=== PATIENT | male | born 1935 | race Caucasian/White ===

== ENCOUNTER 2016-10-18 08:53 | Emergency (ER) | payer OTHER ==
[~2016-10-18] VITALS: Ht 177.8 cm; Wt 114.0 kg
[~2016-10-18 08:53] MED LIST: ACET1TAB84 PO; LISI-461 PO; MOME50SP5; SIMV20TA2 PO
[2016-10-18 09:01] VITALS: TEMP 36.7; Ht 177.8 cm; Wt 114.0 kg
[2016-10-18] MEDS ORDERED: LOSA50TA6 PO (10:10)
--- NOTE | 2016-10-18 10:12 | DIAGNOSTIC IMAGING REPORT ---
RIGHT KNEE 3 VIEWS CLINICAL HISTORY: Right knee pain following fall. COMPARISON: None FINDINGS: Alignment of the right knee is anatomic. There is a small right knee joint effusion. This extensive spurring of the patella and tibial tubercle. There is osteophytosis within the right knee. There is minimal joint space narrowing within the medial and patellofemoral compartments. IMPRESSION: 1. No acute fracture. 2. Small right knee joint effusion. 3. Mild arthritis of the right knee with extensive spurring of the patella and tibial tubercle. Electronically signed by: Floyd Orantes M.D. 10/18/2016 10:11 AM Dictated Date/Time: 10/18/2016 10:09 AM
--- NOTE | 2016-10-18 10:12 | DIAGNOSTIC IMAGING REPORT ---
RIGHT HIP 2 VIEWS HISTORY: Fall with right hip pain. COMPARISON: None. FINDINGS: There is no fracture or dislocation. Soft tissues are unremarkable. Mild to moderate right hip osteoarthritis. IMPRESSION: No fracture or dislocation within the right hip. Electronically signed by: Steve Cook M.D. 10/18/2016 10:11 AM Dictated Date/Time: 10/18/2016 10:10 AM
[2016-10-18] MEDS ORDERED: OXYC1TAB3 PO (10:39)
[2016-10-18 10:49] VITALS: BP 182/96; PULSE 64; O2SAT 94
--- NOTE | 2016-10-18 17:17 | EMERGENCY ROOM VISIT NOTE ---
History Report prepared by Ashwini: David Marte Under the Supervision of: Dr. Roby Metz D.O. First contact with patient: 09:19 Chief Complaint: LEG PAIN,LEG INJURY Stated Complaint: RIGHT LEG TWISTED, TROUBLE WALKING History of Present Illness The patient is a 81 year old male who presents to the Emergency Room with complaints of persistent right leg pain that started yesterday after stepping in a hole. The patient says that his knee rolled in and he blew his knee out. He notes that his leg twisted. He says his knee feels okay but he has pain on the back of his leg behind the knee. The patient denies any tingling, numbness, or ankle pain. He says it hurts to walk. He states that a few weeks ago he was pruning an apple tree and had some right leg pain after that, but he thinks he just overdid himself. The pain from pruning the tree has persisted, and the pain is all over the right leg, including the hip. Source of History: patient Onset: Yesterday Position: leg (right) Timing: other (persistent) Modifying Factors (Worsening): movement Associated Symptoms: No numbness Note: Associated symptoms: Pain behind right knee, generalized right leg pain into right hip. Denies tingling or ankle pain. Review of Systems See HPI for pertinent positives & negatives. A total of 10 systems reviewed and were otherwise negative. Past Medical & Surgical Medical Problems: (1) No pertinent past medical history Family History No pertinent family history Social History Smoking Status: Never Smoker Marital Status: Housing Status: lives with family Occupation Status: retired Current/Historical Medications Scheduled Acetaminophen (Tylenol Arthritis Ext Rel), 1,300 MG PO Q8HR PRN Losartan Potassium (Cozaar), 50 MG PO DAILY Simvastatin (Zocor), 20 MG PO QPM Scheduled PRN Oxycodone Immediate Rel Tab (Roxicodone Ir), 5 MG PO Q6H PRN for Pain Allergies Coded Allergies: Australian Cheese (Verified Allergy, Unknown, ALLERGY TO "CHEESE STEAK SANDWICHES", 08/14/08) No Known Allergies (Verified Allergy, Unknown, ., 08/14/08) Physical Exam Vital Signs Date Time Temp Pulse Resp B/P Pulse Ox O2 Delivery O2 Flow Rate FiO2 10/18/16 10:49 64 182/96 94 10/18/16 09:01 36.7 67 18 158/84 93 Room Air Physical Exam GENERAL: sitting up in bed, alert, well appearing, well nourished, no distress, non-toxic EYE EXAM: normal conjunctiva OROPHARYNX: mucous membranes are moist LUNGS: Clear to auscultation. Normal chest wall mechanics HEART: no murmurs, S1 normal and S2 normal ABDOMEN: abdomen soft, non-tender, normo-active bowel sounds, no masses, no rebound or guarding. SKIN: no rashes and no bruising UPPER EXTREMITIES: upper extremities are grossly normal. LOWER EXTREMITIES: No pitting edema. Full active and passive range of motion of right hip and right ankle without tenderness. Pain with flexion of knee greater than 30 degrees. Minimal pain of palpation of medial tibia, DP 2/4, gross sensations intact. PELVIS: stable compression anteriorly and posteriorly NEURO EXAM: Normal sensorium. Medical Decision & Procedures ER Provider Diagnostic Interpretation: Xray results per the radiologist and my interpretation. RIGHT KNEE 3 VIEWS CLINICAL HISTORY: Right knee pain following fall. COMPARISON: None FINDINGS: Alignment of the right knee is anatomic. There is a small right knee joint effusion. This extensive spurring of the patella and tibial tubercle. There is osteophytosis within the right knee. There is minimal joint space narrowing within the medial and patellofemoral compartments. IMPRESSION: 1. No acute fracture. 2. Small right knee joint effusion. 3. Mild arthritis of the right knee with extensive spurring of the patella and tibial tubercle. Electronically signed by: Floyd Orantes M.D. 10/18/2016 10:11 AM Dictated Date/Time: 10/18/2016 10:09 AM RIGHT HIP 2 VIEWS HISTORY: Fall with right hip pain. COMPARISON: None. FINDINGS: There is no fracture or dislocation. Soft tissues are unremarkable. Mild to moderate right hip osteoarthritis. IMPRESSION: No fracture or dislocation within the right hip. Electronically signed by: Steve Cook M.D. 10/18/2016 10:11 AM Dictated Date/Time: 10/18/2016 10:10 AM ED Course ED COURSE: Vital signs were reviewed and showed hypertensive vitals. The patients medical record was reviewed The above diagnostic studies were performed and reviewed. ED treatments and interventions as stated above. 0921: The patient was evaluated in room A9B. A complete history and physical examination was performed. 1035: Upon reevaluation, the patient is resting comfortably.I discussed my findings with the patient and he understands and agrees with the treatment plan. Based on the patients age, coexisting illnesses, exam and lab findings the decision to treat as an outpatient was made. The patient remained stable while under my care. The patient appeared well at the time of discharge. Medical Decision Differential diagnosis: Etiologies such as fracture, dislocation, neurovascular compromise, compartment syndrome, soft tissue injury, as well as others were entertained. Patient is a 81-year-old male who presents the ER for right knee and hip pain. His pain started several weeks ago when he was trimming the hedges and his knee pain started yesterday when he stepped in a ditch and twisted his knee. X-ray show no acute fractures. There is no sign of infection. Patient was discharged with OxyIR and her walker. He was instructed to follow up with his orthopedic doctor within the next 2-3 days. Discussed with Pt concerning signs and symptoms to watch out for. Pt was instructed to follow up with their PCP and discussed with the patient their option to return to the ED at anytime for persistent or worsening symptoms. The appropriate anticipatory guidance and out- patient management, including indications for return to the emergency department , were explained at length to the patient and understood. Impression Primary Impression: Knee sprain Additional Impression: Hip pain Scribe Attestation The scribe's documentation has been prepared under my direction and personally reviewed by me in its entirety. I confirm that the note above accurately reflects all work, treatment, procedures, and medical decision making performed by me. Departure Information Dispostion Home / Self-Care Prescriptions Oxycodone Immediate Rel Tab (ROXICODONE IR) 5 Mg Tab 5 MG PO Q6H Y for Pain, #10 TAB Prov: Roby Metz, DO 10/18/16 Referrals Herb Wilson M.D. (PCP) Forms HOME CARE DOCUMENTATION FORM, IMPORTANT VISIT INFORMATION Patient Instructions ED Knee Pain David, [facility] Additional Instructions Please follow up with your primary care doctor with in the next 24 hours. Any worsening of your symptoms, please return to the ED immediately. This includes numbness or weakness, worsening pain, unable to walk, redness of the joints, fevers greater than 100.4 or any other concerning signs or symptoms from your standpoint. Please take Tylenol as need for pain. Please follow up with your orthopedic doctor previous. You were given medications during this visit that will inhibit your ability to drive, operate machinery and work. Please do NOT drive, operate machinery or work for the next 12hrs. You were also given a prescription for a narcotic/oxy IR. While taking this medication you should also not drive, operate machinery and or work. Problem Qualifiers Primary Impression: Knee sprain Encounter type: initial encounter Involved ligament of knee: unspecified ligament Laterality: right Qualified Codes: S83.91XA - Sprain of unspecified site of right knee, initial encounter Additional Impression: Hip pain Laterality: right Qualified Codes: M25.551 - Pain in right hip
== END 2016-10-18 10:50 | disposition home or self-care (01) ==
LOC: C.EDB 08:54 → C.EDA 10:50
DX: S83.91XA Sprain of unspecified site of right knee, initial encounter (principal); M25.551 Pain in right hip; X50.0XXA Overexertion from strenuous movement or load, initial encounter; W18.42XA Slipping, tripping and stumbling without falling due to stepping into hole or opening, initial encounter; Z79.899 Other long term (current) drug therapy

== ENCOUNTER → 2016-12-14 | Outpatient (CLI) | payer OTHER ==
[~2016-12-14] MED LIST changes: -LISI-461 PO; +LOSA50TA6 PO; -MOME50SP5; +OXYC1TAB3 PO
[2016-12-14 12:21] LABS: HEMATOCRIT 45.5 % (42-52); MEAN CELL VOLUME 91.2 fL (80-100); MEAN CORPUSCULAR HEMOGLOBIN 30.5 pg (25-34); MEAN CORPUSCULAR HGB CONC 33.4 g/dl (32-36); MEAN PLATELET VOLUME 10.2 fL (7.4-10.4); PLATELET COUNT 217 K/uL (130-400); RED BLOOD COUNT 4.99 M/uL (4.7-6.1); WHITE BLOOD COUNT 8.73 K/uL (4.8-10.8)
[2016-12-14 12:39] LABS: BLOOD UREA NITROGEN 20 mg/dl (7-18); BUN/CREATININE RATIO 16.8 (10-20); CARBON DIOXIDE 24 mmol/L (21-32); CHLORIDE 110 mmol/L (98-107); CHOLESTEROL 134 mg/dl (0-200); ESTIMATED AVERAGE GLUCOSE 194 mg/dl; GLUCOSE 180 mg/dl (70-99); HA1C FLAG Normal (Normal); POTASSIUM 4.3 mmol/L (3.5-5.1); SODIUM 143 mmol/L (136-145); TRIGLYCERIDES 222 mg/dl (0-150); VERY LOW DENSITY LIPOPROT CALC 44 mg/dl
[2016-12-14 12:40] LABS: CALCIUM 8.8 mg/dl (8.5-10.1)
[2016-12-14 12:45] LABS: ALKALINE PHOSPHATASE 63 U/L (45-117); ALT/SGPT 38 U/L (12-78); AST/SGOT 20 U/L (15-37); CHOLESTEROL/HDL RATIO 4.1; HDL CHOLESTEROL 33 mg/dl; LDL CHOLESTEROL CALCULATED 57 mg/dl
[2016-12-14 13:13] LABS: RATIO 61.4 mcg/mg (0-30.0)
== END | disposition home or self-care (01) ==
LOC: C.LABBFT 07:38
PROVIDERS: ATTEND Internal Medicine
DX: E11.29 Type 2 diabetes mellitus with other diabetic kidney complication (principal)

== ENCOUNTER → 2017-04-24 | Outpatient (CLI) | payer OTHER ==
[~2017-04-24] MED LIST changes: -OXYC1TAB3 PO
[2017-04-24 12:49] LABS: ESTIMATED AVERAGE GLUCOSE 148 mg/dl; HA1C FLAG Normal (Normal)
[2017-04-24 13:36] LABS: ALT/SGPT 29 U/L (12-78); BLOOD UREA NITROGEN 25 mg/dl (7-18); BUN/CREATININE RATIO 22.4 (10-20); CALCIUM 8.9 mg/dl (8.5-10.1); CARBON DIOXIDE 23 mmol/L (21-32); CHLORIDE 111 mmol/L (98-107); CHOLESTEROL 124 mg/dl (0-200); GLUCOSE 145 mg/dl (70-99); POTASSIUM 3.8 mmol/L (3.5-5.1); SODIUM 142 mmol/L (136-145); TRIGLYCERIDES 210 mg/dl (0-150); VERY LOW DENSITY LIPOPROT CALC 42 mg/dl
[2017-04-24 13:46] LABS: ALKALINE PHOSPHATASE 62 U/L (45-117); AST/SGOT 13 U/L (15-37); CHOLESTEROL/HDL RATIO 3.8; HDL CHOLESTEROL 33 mg/dl; LDL CHOLESTEROL CALCULATED 49 mg/dl
== END | disposition home or self-care (01) ==
LOC: C.LABBFT 07:42
PROVIDERS: ATTEND Internal Medicine
DX: E11.29 Type 2 diabetes mellitus with other diabetic kidney complication (principal)

== ENCOUNTER 2017-10-02 17:40 | Emergency (ER) | payer OTHER ==
[~2017-10-02] VITALS: Ht 177.8 cm; Wt 120.0 kg
[2017-10-02 17:50] VITALS: TEMP 36.5; Ht 177.8 cm; Wt 120.0 kg
--- NOTE | 2017-10-02 19:05 | DIAGNOSTIC IMAGING REPORT ---
(CHEST) THORAX WITHOUT CLINICAL HISTORY: Right-sided chest pain. Patient fell from ladder. COMPARISON STUDY: 10/22/2014 CT DOSE: 1282.70 mGy.cm TECHNIQUE: CT of the thorax was performed from the thoracic inlet to the lung bases. Images are reviewed in the axial, sagittal, and coronal planes. IV contrast was not administered for this examination. A dose lowering technique was utilized adhering to the principles of ALARA. FINDINGS: Thyroid: Imaged portions of the thyroid gland are normal in appearance. Thoracic aorta: The thoracic aorta is normal in course and caliber, noting standard 3 vessel arch anatomy. Heart: The heart is mildly enlarged. There are coronary artery calcifications. Lungs and pleural spaces: There are bilateral calcified pleural plaques. There is no pneumothorax. Evaluation the lung parenchyma is limited due to respiratory motion artifact. There are groundglass opacities with a slight mosaic distribution, finding which may indicate underlying airway disease. There is a stable 16 mm right lower lobe pulmonary nodule containing a central calcification. This is likely postinflammatory. No pleural effusions are visualized Mediastinum: There is no mediastinal lymphadenopathy. [place]: There is no evidence of pathologic hilar adenopathy given the limitations of a noncontrast study. Axilla: There is no evidence of pathologic axillary lymphadenopathy Upper abdomen: Partially visualized upper abdominal viscera is within normal limits. Skeletal structures: There are no lytic or blastic osseous lesions. IMPRESSION: 1. Study limited due to respiratory motion artifact 2. No evidence of pneumothorax. No evidence of mediastinal hematoma. 3. No rib fractures identified 4. Calcified pleural plaques 5. Persistent 16mm right lower lobe pulmonary nodule containing a central calcification. This is felt to be postinflammatory Electronically signed by: Kyaw Samayoa M.D. 10/02/2017 7:03 PM Dictated Date/Time: 10/02/2017 6:57 PM
[2017-10-02 20:30] VITALS: BP 138/76; PULSE 88; O2SAT 97
--- NOTE | 2017-10-02 21:28 | EMERGENCY ROOM VISIT NOTE ---
History Report prepared by Ashwini: Cristino Cates Under the Supervision of: Dr. Ander Lewis M.D. First contact with patient: 18:37 Chief Complaint: FALL Stated Complaint: FELL OF LADDER,ALL OF RIDE SIDE HURTS History of Present Illness The patient is an 82 year old male who presents to the Emergency Room with complaints of a sudden fall occurring around 1500. He states that the pain is "not too bad", and his pain is worse with movement and pressing, and he occasionally has a sharp pain. The patient states that he was on a ladder and turned around and fell off of the 3rd-4th step, and he fell on his back. He states that he has been having some back rib on the right pain. The patient states that he did not hit his head. He is not currently on any blood thinners. Pt denies LOC, headache, visual changes, neck pain, chest pain, breathing difficulties, nausea, vomiting, abdominal pain, extremity pain, numbness, weakness, open wounds, active bleeding, or other complaints. Source of History: patient Onset: 1500 Symptom Intensity: "Not too bad" Quality: other (fall) Timing: other (sudden) Modifying Factors (Worsening): movement, other (touching it) Associated Symptoms: + back pain Review of Systems See HPI for pertinent positives and negatives. A total of ten systems were reviewed and were otherwise negative. Past Medical & Surgical Medical Problems: (1) Diabetes (2) HTN (hypertension) (3) No pertinent past medical history Family History Cancer Gallbladder disease Social History Smoking Status: Never Smoker Marital Status: Housing Status: lives with family Occupation Status: retired Current/Historical Medications Scheduled Acetaminophen (Tylenol Arthritis Ext Rel), 1,300 MG PO Q8HR PRN Losartan Potassium (Cozaar), 50 MG PO DAILY Simvastatin (Zocor), 20 MG PO QPM Allergies Coded Allergies: Vincentian Cheese (Verified Allergy, Unknown, ALLERGY TO "CHEESE STEAK SANDWICHES", 08/14/08) No Known Allergies (Verified Allergy, Unknown, ., 08/14/08) Physical Exam Vital Signs Date Time Temp Pulse Resp B/P (MAP) Pulse Ox O2 Delivery O2 Flow Rate FiO2 10/02/17 20:30 88 20 138/76 97 Room Air 10/02/17 20:30 88 20 138/76 97 10/02/17 17:50 36.5 77 20 186/76 98 Room Air Physical Exam GENERAL: Awake, alert, well-appearing, in no distress HENT: Normocephalic, atraumatic. Oropharynx unremarkable. EYES: Normal conjunctiva. Sclera non-icteric. NECK: Supple. No nuchal rigidity. FROM. No masses. No tenderness to palpation. RESPIRATORY: Clear to auscultation. No wheezes. No rales. Normal respiratory effort. CARDIAC: Normal rate. Normal rhythm. No murmurs. No rubs. Extremities warm and well perfused. Pulses equal. No JVD. GI: Soft, non-distended. No tenderness to palpation. No rebound or guarding. No masses. RECTAL: Deferred. MUSCULOSKELETAL: Atraumatic extremities. Right posterior lateral inferior rib tenderness along the axillary line. Anterolateral right sided rib tenderness. There is no CVA tenderness to palpation. No joint edema. No midline spine tenderness to palpation or percussion. Inspection reveals no abnormalities. LOWER EXTREMITIES: Calves are equal size bilaterally and non-tender. No edema. No discoloration. NEURO: Normal sensorium. No sensory or motor deficits noted. SKIN: No rash or jaundice noted. Medical Decision & Procedures ER Provider Diagnostic Interpretation: Radiology results as stated below per my review and radiologist interpretation: (CHEST) THORAX WITHOUT CLINICAL HISTORY: Right-sided chest pain. Patient fell from ladder. COMPARISON STUDY: 10/22/2014 CT DOSE: 1282.70 mGy.cm TECHNIQUE: CT of the thorax was performed from the thoracic inlet to the lung bases. Images are reviewed in the axial, sagittal, and coronal planes. IV contrast was not administered for this examination. A dose lowering technique was utilized adhering to the principles of ALARA. FINDINGS: Thyroid: Imaged portions of the thyroid gland are normal in appearance. Thoracic aorta: The thoracic aorta is normal in course and caliber, noting standard 3 vessel arch anatomy. Heart: The heart is mildly enlarged. There are coronary artery calcifications. Lungs and pleural spaces: There are bilateral calcified pleural plaques. There is no pneumothorax. Evaluation the lung parenchyma is limited due to respiratory motion artifact. There are groundglass opacities with a slight mosaic distribution, finding which may indicate underlying airway disease. There is a stable 16 mm right lower lobe pulmonary nodule containing a central calcification. This is likely postinflammatory. No pleural effusions are visualized Mediastinum: There is no mediastinal lymphadenopathy. [place]: There is no evidence of pathologic hilar adenopathy given the limitations of a noncontrast study. Axilla: There is no evidence of pathologic axillary lymphadenopathy Upper abdomen: Partially visualized upper abdominal viscera is within normal limits. Skeletal structures: There are no lytic or blastic osseous lesions. IMPRESSION: 1. Study limited due to respiratory motion artifact 2. No evidence of pneumothorax. No evidence of mediastinal hematoma. 3. No rib fractures identified 4. Calcified pleural plaques 5. Persistent 16mm right lower lobe pulmonary nodule containing a central calcification. This is felt to be postinflammatory Electronically signed by: Kyaw Samayoa M.D. 10/02/2017 7:03 PM Dictated Date/Time: 10/02/2017 6:57 PM ED Course 1837: The patient was evaluated in room D7. A complete history and physical exam was performed. 2002: I reevaluated the patient, and he states that he feels good other than pain with movement. I offered pain medications, and he does not want want at this time. The patient is going to be discharged home. Medical Decision Prior records reviewed and summarized above. Triage Nursing notes reviewed and agree them. Additional history obtained from his . The patient's history was concerning for traumatic injury. Differential diagnosis: Etiologies such as fracture, dislocation, neurovascular compromise, compartment syndrome, soft tissue injury, hemothorax, intra-abdominal injury, pulmonary contusion, pneumothorax, as well as others were entertained. Physical examination: Consistent with an isolated right rib injury. ER treatment provided: Patient declined analgesia On reassessment the patient felt better. Diagnostics interpreted by me: Imaging studies: CT scan as above. The patient suffered a fall without injury to his head, neck midline back, abdomen or extremities. He has a normal neurologic examination and benign abdomen. He had tenderness on his right sided ribs, anteriorly and posteriorly. He was breathing normally. CT imaging was done to fully evaluate his possible injuries. No significant pathology was found. No fractures noted. Given his tenderness I suspect that he has either bruised or hairline cracked ribs that may not be showing up on imaging. He was offered analgesia but declined. He was instructed to use Tylenol and conservative management. Exercising as long as was recommended. Warning signs for worsening issue such as pneumonia were outlined. The patient was advised to minimize risky behavior such as climbing on ladders. He will need to follow-up with his primary office this week. If he worsens in any way he will be back. By the evaluation outlined above emergent etiologies such as fracture, dislocation, neurovascular compromise, compartment syndrome, infections, hemothorax, pneumothorax, intra-abdominal injury, as well as others were deemed relatively unlikely. The patient and were informed about the findings as listed above. All questions were answered and they were pleased with the treatment. Return instructions were outlined and the patient was discharged in stable condition. Prescription management: None Referral: The patient was referred to their primary care physician in 2 to 3 days for a recheck of your current condition. Medication Reconcilliation Current Medication List: was personally reviewed by me Blood Pressure Screening Patient's blood pressure: Elevated blood pressure Blood pressure disposition: Elevated BP felt to be situational Impression Primary Impression: Fall Additional Impression: Rib pain on right side Scribe Attestation The scribe's documentation has been prepared under my direction and personally reviewed by me in its entirety. I confirm that the note above accurately reflects all work, treatment, procedures, and medical decision making performed by me. Departure Information Dispostion Home / Self-Care Referrals Herb Wilson M.D. (PCP) Forms HOME CARE DOCUMENTATION FORM, IMPORTANT VISIT INFORMATION Patient Instructions [facility] Additional Instructions Tylenol: Take 1000 mg every 6 hours as needed for pain. Do not take more than 3000 mg in a 24 hour period. Ice compresses for 20 minutes at a time four times daily for 2-3 days. Alternate Warm compresses for 20 minutes at a time four times daily for 2-3 days. Every two to 3 hours take slow deep breaths to exercise your lungs. Do this for about 10 minutes each time. Bruised or cracked ribs can lead to pneumonia and exercising your lungs may help prevent this. Return to the ER for worsening chest pain, difficulty breathing, fevers, vomiting, worsening of your condition, or as needed. Follow-up with your primary care physician in 2 to 3 days for a recheck of your current condition. Problem Qualifiers
== END 2017-10-02 20:30 | disposition home or self-care (01) ==
LOC: C.EDB 17:41 → C.EDD 20:30
DX: R07.81 Pleurodynia (principal); W11.XXXA Fall on and from ladder, initial encounter; E11.9 Type 2 diabetes mellitus without complications; I10 Essential (primary) hypertension; Z80.9 Family history of malignant neoplasm, unspecified; Z79.899 Other long term (current) drug therapy; Z91.018 Allergy to other foods

== ENCOUNTER → 2017-11-01 | Outpatient (CLI) | payer OTHER ==
[2017-11-01 12:23] LABS: HEMATOCRIT 44.7 % (42-52); HEMOGLOBIN 15.6 g/dL (14.0-18.0); MEAN CELL VOLUME 90.9 fL (80-100); MEAN CORPUSCULAR HEMOGLOBIN 31.7 pg (25-34); MEAN CORPUSCULAR HGB CONC 34.9 g/dl (32-36); MEAN PLATELET VOLUME 10.6 fL (7.4-10.4); PLATELET COUNT 199 K/uL (130-400); RED CELL DISTRIBUTION WIDTH CV 13.8 % (11.5-14.5); RED CELL DISTRIBUTION WIDTH SD 46.2 fL (36.4-46.3); WHITE BLOOD COUNT 7.27 K/uL (4.8-10.8)
[2017-11-01 12:49] LABS: HEMOGLOBIN A1C 6.8 % (4.5-5.6)
[2017-11-01 12:57] LABS: ALBUMIN 3.7 gm/dl (3.4-5.0); ALT/SGPT 38 U/L (12-78); AST/SGOT 24 U/L (15-37); BLOOD UREA NITROGEN 23 mg/dl (7-18); CALCIUM 8.8 mg/dl (8.5-10.1); CARBON DIOXIDE 25 mmol/L (21-32); CREATININE 1.21 mg/dl (0.60-1.40); GLUCOSE 120 mg/dl (70-99); POTASSIUM 4.3 mmol/L (3.5-5.1); SODIUM 138 mmol/L (136-145)
[2017-11-01 13:08] LABS: ALKALINE PHOSPHATASE 67 U/L (45-117); CHOLESTEROL 111 mg/dl (0-200); LDL CHOLESTEROL CALCULATED 48 mg/dl; TOTAL PROTEIN 7.5 gm/dl (6.4-8.2)
== END | disposition home or self-care (01) ==
LOC: C.LABBFT 07:30
PROVIDERS: ATTEND Internal Medicine
DX: E11.29 Type 2 diabetes mellitus with other diabetic kidney complication (principal)

== ENCOUNTER 2018-09-08 07:07 | Inpatient (IN) ==
[2018-09-08] MEDS ORDERED: SODIUM CHLORIDE 0.9% 1000ML 500 ML IV ONE (07:21)
[2018-09-08] MEDS ORDERED: ONDANSETRON INJ 2 MG/ML 2 ML VIAL IV STA (07:21)
[2018-09-08 07:53] LABS: Basophils # (auto) 0.03 K/uL (0-0.2); Basophils % (auto) 0.2 %; Eosinophils # (auto) 0.16 K/uL (0-0.5); Hematocrit (blood only) 42.1 % (42-52); Immature Granulocytes # (auto) 0.05 K/uL (0.00-0.02); Immature Granulocytes % (auto) 0.3 %; Lymphocytes % (auto) 10.7 %; Mean Corpuscular Hgb Conc 33.3 g/dL (32-36); Mean Corpuscular Volume 91.1 fL (80-100); Mean Platelet Volume 9.8 fL (7.4-10.4); Monocytes % (auto) 8.8 %; Neutrophils # (auto) 12.49 K/uL (1.4-6.5); Platelet Count 245 K/uL (130-400); RDW Coefficient of Variation 14.7 % (11.5-14.5); RDW Standard Deviation 49.1 fL (36.4-46.3); Red Blood Count 4.62 M/uL (4.7-6.1); White Blood Count 15.83 K/uL (4.8-10.8)
[2018-09-08 08:08] LABS: Albumin Level 2.6 gm/dl (3.4-5.0); Bilirubin Direct 2.3 mg/dl (0-0.2); Calcium 8.2 mg/dl (8.5-10.1); Creatinine Clr Calc Pharmacy 59.4 ml/min; Est GFR (African American) 60.4; Est GFR (Non-African American) 52.1; Potassium 4.2 mmol/L (3.5-5.1)
[2018-09-08 08:11] LABS: Bilirubin,Total 3.3 mg/dl (0.2-1); Total Protein 6.6 gm/dl (6.4-8.2)
[2018-09-08 08:26] LABS: Appearance Urine Clear (Clear); Bacteria Urine Automated Negative (Negative); Blood Urine Negative (Negative); Glucose Urine UA Negative (Negative); Ketones Urine Trace (Negative); Leukocyte Esterase Urine Trace (Negative); Nitrite Urine Positive (Negative); Protein Urine Negative (Negative); RBC Urine Automated 0-4 /hpf (0-4); Specific Gravity Urine 1.023 (1.000-1.030); Urobilinogen Urine Negative (Negative); pH Urine 6.5 (4.5-7.5)
[2018-09-08 08:43] LABS: Bilirubin Urine 2+ (Negative); Color Urine Dark Yellow; Ictotest Urine Positive (Negative)
--- NOTE | 2018-09-08 08:51 | CT Scan Report ---
ABDOMEN AND PELVIS CT WITHOUT CONTRAST CT DOSE: 1487.59 mGy.cm HISTORY: Acute right-sided flank pain with abdominal distention. R flank pain abd distention TECHNIQUE: Multiaxial CT images of the abdomen and pelvis were performed without contrast. A dose lo wering technique was utilized adhering to the principles of ALARA. COMPARISON STUDY: Chest CT 10/02/2017 FINDINGS: Bibasilar pleural calcifications. Calcifications are also noted about the left pericardial distributi on. Pleural-based centrally calcified 0.5 cm nodule of the right lower lobe, unchanged. Multiple denise d nodules of the bilateral lung bases appear new from comparison study measuring up to 7 mm. No pneum atosis or pneumoperitoneum. Imaged inferior cardiac chambers are normal in size with coronary arteria l calcifications. Cholelithiasis with suggestion of mild gallbladder wall thickening and trace pericholecystic edema wi thout gallbladder distention or biliary ductal dilation. Trace perihepatic ascites. Mild hepatic stea tosis otherwise unremarkable appearance of the liver. The spleen, pancreas and right adrenal gland ar e unremarkable. Mild attending about the left adrenal gland. Mild nonspecific bilateral perinephric stranding. No renal calculi or obstructive uropathy. Mild wall thickening of the urinary bladder with partial distention. Mild prostamegaly. Trace free fluid about the pelvis. Trace fluid about the pancreaticoduodenal groove. No bowel obstruction. Mild circumferen tial rectal wall thickening with mild perirectal stranding. Colonic diverticulosis without acute dive rticulitis. Appendix not definitively seen. Large and small bowel is displaced toward the central and left abdomen secondary to a large fatty attenuating lesion of the right retroperitoneum, likely christopher ing from the posterior pararenal space which measures 22.7 x 23.1 x 17.3 cm, image 290 series 3. Cent rally fatty attenuating structure with peripheral calcification noted centrally within this lesion, 1 1.8 x 2.3 x 2.9 cm. Soft tissues are within normal limits. Bones appear to be grossly intact. No suspicious lytic or lisa tic bony lesions. Degenerative changes of the spine, pelvis and hips. IMPRESSION: 1. Large mass of the right retroperitoneum which appears to arise from the posterior pararenal space measures up to 22.7 cm. This mass is predominantly fatty attenuating with minimal central complexity. 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 The mass causes mass effect and displacement of the adjacent large and small bow el. 2. No bowel obstruction. 3. Mild nonspecific wall thickening of the rectum, possibly reflecting an acute proctitis with mild a djacent perirectal inflammation and trace free pelvic fluid. Correlate with clinical exam and patient history. 4. Cholelithiasis with mild gallbladder wall thickening, pericholecystic fluid and trace perihepatic ascites. Correlate with right upper quadrant ultrasound to exclude acute cholecystitis. 5. New bilateral pulmonary nodules measure up to 7 mm. Follow-up nonemergent CT of the chest recommen ded to further evaluate. 6. Hepatic steatosis. 7. Additional findings as above. Electronically signed by: Clifton Acosta M.D. 09/08/2018 8:49 AM
[2018-09-08] MEDS ORDERED: cefTRIAXone SODIUM 1,000 MG/50 ML BAG IV STA (08:59)
[2018-09-08] MEDS ORDERED: metroNIDAZOLE 500 MG/100 ML BAG IV STA (08:59)
--- NOTE | 2018-09-08 10:41 | Ultrasound Report ---
US gallbladder HISTORY: 83 years-old Male ro dara acute right upper quadrant abdominal pain COMPARISON: CT abdomen pelvis 09/08/2018 TECHNIQUE: Multiple real-time sonogram images of the abdominal right upper quadrant were obtained ass essing grayscale appearance and color flow FINDINGS: The pancreas is mostly obscured by bowel gas. Hepatic steatosis without focal hepatic mass lesion or marginal nodularity. No intrahepatic biliary ductal dilation. Edematous gallbladder wall is thickened measuring up to 7 mm. 7 mm mobile stone is noted within the region of the gallbladder neck. No sonog raphic Hernandez sign reported. No significant gallbladder distention. Trace pericholecystic edema is be tter seen on comparison CT. The common bile duct is normal, 4 mm. Imaged right kidney is unremarkable without hydronephrosis. Partially imaged fatty mass of the retrop eritoneum on the right redemonstrated. IMPRESSION: 1. Gallbladder wall thickening and cholelithiasis with trace pericholecystic edema. No associated sig nificant gallbladder distention, however these findings are suspicious for acute cholecystitis in the appropriate clinical setting. 2. No biliary ductal dilation. 3. Hepatic steatosis. 4. Large fatty mass of the retroperitoneum, better seen and described on comparison CT of same day. The above report was generated using voice recognition software. It may contain grammatical, syntax o r spelling errors. Electronically signed by: Clifton Acosta M.D. 09/08/2018 10:39 AM
--- NOTE | 2018-09-08 12:27 | History & Physical Report ---
Date of Service September 08, 2018 Assessment & Plan (1) Acute cholecystitis: diagnosed on CT as well as US, gall bladder wall thickening and cholelithiasis NPO Cipro and Flagyl IV NSS at 80cc/hr MRCP: confirms acute cholecystitis, no evidence of CBD dilation or choledocholithiasis consult general surgery, Dr. 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 incidental finding as he is presenting with acute cholecystitis general surgery will be seeing patient, anticipate that he can follow up with them as outpatient (3) Dyspnea: ongoing issue for a few weeks/months scheduled for PFT next week as outpatient, may have to be rescheduled will check echo to determine heart function has pleural scarring on CXR, this is chronic finding (4) Peripheral edema: pitting edema, going on for weeks check echo (5) HTN (hypertension): continue Losartan (6) Diabetes: hold Glimepiride diabetic diet once he can eat Novolog SS (7) Pleural scarring: chronic issues, seen again today on CXR 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 He said that he has been getting this pain intermittently for the past few weeks. He did not note any association with eating. He said that the pain would last minutes to maybe half an hour. The pain was never severe enough for him to seek medical attention. Last night he noticed that the pain was more intense and then this morning the pain was severe. He did not have a fever but did have some chills. No nausea or vomiting. He had a very small BM this morning but mostly passed gas. He says that for a few weeks he has felt more bloated, passing more gas and his BM have been smaller. In the ED he had a leukocytosis of 15k, AST, ALT , bili and alk phos all elevated. CT abdomen and pelvis showed possible cholecytitis. RUQ US showed gall bladder wall thickening, gall stone, suggested cholecystitis. The common bile duct was not dilated on US. He was given IV fluids and Rocephin and Flagyl and admission requested. The ED physician talked with general surgery, asked that medicine admit the patient. The patient admits to some increase shortness of the breath over the past few months. He has been following with his PCP. They were in the process of setting up PFT, actually to be done next week, and then he would follow up with pulmonology. He gets short of breath on exertion and has been getting winded with less activity recently. He also has some pitting edema in the legs, he says that it has been there for a few weeks, not getting better but also not getting worse. He has never had an echo, no history of heart failure. He says that every now and then he gets a little bit of chest tightness, this occurs randomly, has not seen an association with exertion. His weight has been stable. He is compliant with his home medications. 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 He was planning on discussing this with the core inspector next week. Allergies Allergy/AdvReac Type Severity Reaction Status Date / Time CATS Allergy Intermediate FACE Uncoded 09/08/18 09:16 SWELLING Home Medications Home Medications Medication Instructions Recorded Confirmed Type glimepiride 2 mg PO QAM 09/08/18 09/08/18 History levothyroxine 75 mcg PO DAILY 09/08/18 09/08/18 History losartan 100 mg PO DAILY 09/08/18 09/08/18 History simvastatin 20 mg PO PM 09/08/18 09/08/18 History Past Med/Surg History Medical History HTN (hypertension) (Chronic) Diabetes (Chronic) Acute cholecystitis Hip pain Knee sprain Surgical History History of appendectomy (Resolved) Family History Other FHx: cancer Family history of gallbladder disease Social History Current Living Situation: Spouse Other Information That Helps Us Care for You: No Feels Safe at Home: Yes Safety Concerns: Feels Safe At This Time Smoking Status: Never smoker Do You Dip or Chew Tobacco: No Hx Alcohol Use: No Hx Substance Use: No Beliefs That Will Affect Care: Bahai Bahai Beliefs: Church Preferred Language: Venezuelan Communication Ability: Effective Parts Identification Technician Required: No Review of Systems All systems reviewed & are unremarkable except as noted in HPI & below Physical Exam 2 Vital Signs (Past 24 Hours): Last Vital Signs Temp 36.8 C 09/08/18 07:07 Pulse 85 09/08/18 07:50 Resp 13 09/08/18 07:50 BP 194/82 H 09/08/18 10:41 Pulse Ox 93 09/08/18 10:41 Constitutional: WD/WN, vitals as above + obese Eyes: PERRL, conjunctivae normal, anicteric sclerae ENMT: external ear and nose normal, oropharynx normal Neck: trachea midline, no thyromegaly Respiratory: normal respiratory effort, lungs clear to auscultation Cardiovascular: Rate/Rhythm: regular rate and regular rhythm Heart Sounds: normal S1 and normal S2; no murmur Vessels: no JVD Extremities: + pedal edema (bilaterally, 1+ pitting) Gastrointestinal (Abdomen): Inspection/Auscultation: + abdomen distended and + hypoactive bowel sounds Percussion/Palpation: + abdomen tender (RUQ), abdomen soft and + tympanic to percussion; no guarding Musculoskeletal: no cyanosis or clubbing, extremities motor strength 5/5 Skin: no rashes, warm and dry Neurologic: patellar DTR's 2+ bilat, sensation intact and PERRL, EOMI, accommodation nl, no face palsy, no dysarthria Psychiatric: A+Ox3, euthymic affect Lymphatic: no cervical or axillary lymphadenopathy Results & Data Laboratory Results Laboratory Results - last 24 hr 09/08/18 09/08/18 09/08/18 07:45 07:45 07:45 WBC 15.83 H RBC 4.62 L Hgb 14.0 Hct 42.1 MCV 91.1 MCH 30.3 MCHC 33.3 RDW Std Deviation 49.1 H RDW Coeff of Alem 14.7 H Plt Count 245 MPV 9.8 Immature Gran % (Auto) 0.3 Neut % (Auto) 79.0 Lymph % (Auto) 10.7 Kimball % (Auto) 8.8 Eos % (Auto) 1.0 Baso % (Auto) 0.2 Immature Gran # (Auto) 0.05 H Neut # (Auto) 12.49 H Lymph # (Auto) 1.70 Kimball # (Auto) 1.40 H Eos # (Auto) 0.16 Baso # (Auto) 0.03 PT 12.4 H INR 1.2 H APTT 29.6 PTT Ratio 1.1 Sodium 139 Potassium 4.2 Chloride 104 Carbon Dioxide 26 Anion Gap 9.0 BUN 19 H Creatinine 1.28 Est Cr Clr Drug Dosing 59.4 Est GFR ( Amer) 60.4 Est GFR (Non-Af Amer) 52.1 BUN/Creatinine Ratio 15.0 Glucose 156 H Calcium 8.2 L Total Bilirubin 3.3 H Direct Bilirubin 2.3 H AST 334 H ALT 349 H Alkaline Phosphatase 460 H Total Protein 6.6 Albumin 2.6 L Lipase 225 Urine Color Urine Appearance Urine pH Ur Specific [place] Urine Protein Urine Glucose (UA) Urine Ketones Urine Blood Urine Nitrite Urine Bilirubin Urine Urobilinogen Ur Leukocyte Esterase Urine WBC (Auto) Urine RBC (Auto) U Hyaline Cast (Auto) U Epithel Cells (Auto) Urine Bacteria (Auto) 09/08/18 08:00 WBC RBC Hgb Hct MCV MCH MCHC RDW Std Deviation RDW Coeff of Alem Plt Count MPV Immature Gran % (Auto) Neut % (Auto) Lymph % (Auto) Kimball % (Auto) Eos % (Auto) Baso % (Auto) Immature Gran # (Auto) Neut # (Auto) Lymph # (Auto) Kimball # (Auto) Eos # (Auto) Baso # (Auto) PT INR APTT PTT Ratio Sodium Potassium Chloride Carbon Dioxide Anion Gap BUN Creatinine Est Cr Clr Drug Dosing Est GFR ( Amer) Est GFR (Non-Af Amer) BUN/Creatinine Ratio Glucose Calcium Total Bilirubin Direct Bilirubin AST ALT Alkaline Phosphatase Total Protein Albumin Lipase Urine Color Dark Yellow Urine Appearance Clear Urine pH 6.5 Ur Specific [place] 1.023 Urine Protein Negative Urine Glucose (UA) Negative Urine Ketones Trace H Urine Blood Negative Urine Nitrite Positive H Urine Bilirubin 2+ H Urine Urobilinogen Negative Ur Leukocyte Esterase Trace H Urine WBC (Auto) 1-5 Urine RBC (Auto) 0-4 U Hyaline Cast (Auto) 1-5 U Epithel Cells (Auto) 5-10 H Urine Bacteria (Auto) Negative Diagnostic Findings CT ABDOMEN/PELVIS IMPRESSION: 1. Large mass of the right retroperitoneum which appears to arise from the posterior pararenal space measures up to 22.7 cm. This mass is predominantly fatty attenuating with minimal central complexity. 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 The mass causes mass effect and displacement of the adjacent large and small bowel. 2. No bowel obstruction. 3. Mild nonspecific wall thickening of the rectum, possibly reflecting an acute proctitis with mild adjacent perirectal inflammation and trace free pelvic fluid. Correlate with clinical exam and patient history. 4. Cholelithiasis with mild gallbladder wall thickening, pericholecystic fluid and trace perihepatic ascites. Correlate with right upper quadrant ultrasound to exclude acute cholecystitis. 5. New bilateral pulmonary nodules measure up to 7 mm. Follow-up nonemergent CT of the chest recommended to further evaluate. 6. Hepatic steatosis. RUQ ULTRASOUND IMPRESSION: 1. Gallbladder wall thickening and cholelithiasis with trace pericholecystic edema. No associated significant gallbladder distention, however these findings are suspicious for acute cholecystitis in the appropriate clinical setting. 2. No biliary ductal dilation. 3. Hepatic steatosis. 4. Large fatty mass of the retroperitoneum, better seen and described on comparison CT of same day. CHEST X-RAY IMPRESSION: 1. Cardiomegaly without overt pulmonary edema. 2. Bibasilar opacities suggest atelectasis/scarring. 3. Bilateral pleural calcifications and pulmonary nodules redemonstrated. MRCP IMPRESSION: 1. Limited exam as above. 2. Cholelithiasis with gallbladder wall thickening and pericholecystic fluid redemonstrated suspicious for acute cholecystitis. Trace perihepatic ascites with trace fluid along the pancreaticoduodenal groove is likely reactive. 3. Normal appearance of the common bile duct without evidence of choledocholithiasis. Code Status & VTE Plan Code Status FULL CODE VTE Prophylaxis Plan VTE Prophylaxis will be ordered: Yes _ (1) HTN (hypertension) Hypertension type: essential hypertension Qualified Code(s): I10 - Essential (primary) hypertension (2) Diabetes Diabetes mellitus type: type 2 Diabetes mellitus long-term insulin use: without boatwright use Diabetes mellitus complication status: without complication Qualified Code(s): E11.9 - Type 2 diabetes mellitus without complications (3) Dyspnea Dyspnea type: dyspnea on exertion Qualified Code(s): R06.09 - Other forms of dyspnea
[2018-09-08] MEDS ORDERED: POLYETHYLENE (MIRALAX) 17 GM PACK PO PRN (12:48)
[2018-09-08] MEDS ORDERED: ACETAMINOPHEN 325 MG TAB PO PRN (12:48)
[2018-09-08] MEDS ORDERED: MoRPHine SULFATE 4 MG/ML 1 ML CARP\\VIAL IV PRN (12:48)
[2018-09-08] MEDS ORDERED: GLUCOSE 40% GEL 15 GM TUBE PO PRN (12:57)
[2018-09-08] MEDS ORDERED: DEXTROSE 50% 50 ML SYRINGE IV PRN (12:57)
[2018-09-08] MEDS ORDERED: CARBOHYDRATES FOR HYPOGLYCEMIA PO PRN (12:57)
[2018-09-08] MEDS ORDERED: GLUCOSE 10 TABS/TUBE PO PRN (12:57)
[2018-09-08] MEDS ORDERED: GLUCAGON FOR INJ 1 MG VIAL IM PRN (12:57)
[2018-09-08 13:20] LABS: INR 1.2 (0.9-1.1); Partial Thromboplastin Ratio 1.1; Partial Thromboplastin Time 29.6 Seconds (21.0-31.0); Prothrombin Time 12.4 Seconds (9.0-12.0)
--- NOTE | 2018-09-08 13:49 | Emergency Department Note ---
Entered by Abdiaziz Gaston acting as a scribe for Emory Mitchell History of Present Illness General Chief complaint: Vomiting Stated complaint: VOMITING Time Seen by Provider: 09/08/18 07:12 Source: patient History of Present Illness Onset (ago): day(s) 5 Location: abdomen Pain Consistency: + constant Maximum Pain Intensity: 8 Relieved By: + none Exacerbated By: + none Associated symptoms: + denies other symptoms (fevers, pain with urination, blood with urination, blood in stool, and black or tarry stool.); no chest pain and no shortness of breath The patient is an 83 year old male who presents to the Emergency Room with complaints of constant abdominal pain beginning five days ago. The patient states he was diagnosed with pneumonia 6 weeks ago and he has been taking medication for that. He reports he followed up with his PCP, Dr. Wilson, on Monday. The patient notes since then, he has developed pain in his right flank that goes across his right abdomen to his groin. He states he has had this discomfort before and believes it is gas. The patient reports he is sick to his stomach, and he cannot vomit. He notes nothing makes his symptoms better or worse. He denies fevers, chest pain, shortness of breath, pain with urination, blood with urination, blood in stool, and black or tarry stool. The patient notes a history of diabetes and an appendectomy. Home Medications Home Medications Medication Instructions Recorded Confirmed Type glimepiride 2 mg PO QAM 09/08/18 09/08/18 History levothyroxine 75 mcg PO DAILY 09/08/18 09/08/18 History losartan 100 mg PO DAILY 09/08/18 09/08/18 History simvastatin 20 mg PO PM 09/08/18 09/08/18 History Allergies Allergy/AdvReac Type Severity Reaction Status Date / Time CATS Allergy Intermediate FACE Uncoded 09/08/18 09:16 SWELLING Past Med/Surg History Medical History HTN (hypertension) (Chronic) Diabetes (Chronic) Acute cholecystitis Hip pain Knee sprain Surgical History History of appendectomy (Resolved) Family History Other FHx: cancer Family history of gallbladder disease Social History Current Living Situation: Spouse Other Information That Helps Us Care for You: No Feels Safe at Home: Yes Safety Concerns: Feels Safe At This Time Smoking Status: Never smoker Do You Dip or Chew Tobacco: No Hx Alcohol Use: No Hx Substance Use: No Beliefs That Will Affect Care: Episcopalian Episcopalian Beliefs: Baptist Preferred Language: Luxembourgish Communication Ability: Effective Refrigerator Room Clerk Required: No Review of Systems See HPI for pertinent positives & negatives. and A total of 10 systems reviewed and were otherwise negative Physical Exam Vital Signs Vital Signs - 24 hr 09/08/18 07:07 09/08/18 07:31 09/08/18 07:32 Temperature 36.8 C Temperature Source Oral Sepsis Recent Fever Within 48 Hours No Sepsis New/Unexplained Change in Mental Status No Sepsis Action Taken by Nursing No Action Required Pulse Rate 91 H 83 Pulse Rate [Left Finger] Pulse Rate from SpO2 Sensor 84 Respiratory Rate 20 14 Respiratory Effort / Characteristics Non-Labored Respiratory Depth Normal Respiratory Pattern Blood Pressure 169/75 H 171/91 H Blood Pressure [Left Arm] Blood Pressure Mean 106 117 Blood Pressure Mean [Left Arm] Blood Pressure Position [Left Arm] Pulse Oximetry 94 94 Oxygen Delivery Method Room Air Room Air 09/08/18 07:40 09/08/18 07:44 09/08/18 07:50 Temperature Temperature Source Sepsis Recent Fever Within 48 Hours Sepsis New/Unexplained Change in Mental Status Sepsis Action Taken by Nursing Pulse Rate 83 84 85 Pulse Rate [Left Finger] Pulse Rate from SpO2 Sensor 83 84 85 Respiratory Rate 19 20 13 Respiratory Effort / Characteristics Respiratory Depth Respiratory Pattern Blood Pressure 169/77 H Blood Pressure [Left Arm] Blood Pressure Mean 107 Blood Pressure Mean [Left Arm] Blood Pressure Position [Left Arm] Pulse Oximetry 94 94 93 Oxygen Delivery Method 09/08/18 08:27 09/08/18 08:28 09/08/18 08:30 Temperature Temperature Source Sepsis Recent Fever Within 48 Hours Sepsis New/Unexplained Change in Mental Status Sepsis Action Taken by Nursing Pulse Rate Pulse Rate [Left Finger] Pulse Rate from SpO2 Sensor 85 83 84 Respiratory Rate Respiratory Effort / Characteristics Respiratory Depth Respiratory Pattern Blood Pressure 172/81 H Blood Pressure [Left Arm] Blood Pressure Mean 111 Blood Pressure Mean [Left Arm] Blood Pressure Position [Left Arm] Pulse Oximetry 93 93 93 Oxygen Delivery Method 09/08/18 08:40 09/08/18 08:50 09/08/18 09:00 Temperature Temperature Source Sepsis Recent Fever Within 48 Hours Sepsis New/Unexplained Change in Mental Status Sepsis Action Taken by Nursing Pulse Rate Pulse Rate [Left Finger] Pulse Rate from SpO2 Sensor 85 85 86 Respiratory Rate Respiratory Effort / Characteristics Respiratory Depth Respiratory Pattern Blood Pressure Blood Pressure [Left Arm] Blood Pressure Mean Blood Pressure Mean [Left Arm] Blood Pressure Position [Left Arm] Pulse Oximetry 90 91 92 Oxygen Delivery Method 09/08/18 09:10 09/08/18 09:20 09/08/18 10:41 Temperature Temperature Source Sepsis Recent Fever Within 48 Hours Sepsis New/Unexplained Change in Mental Status Sepsis Action Taken by Nursing Pulse Rate Pulse Rate [Left Finger] Pulse Rate from SpO2 Sensor 85 87 89 Respiratory Rate Respiratory Effort / Characteristics Respiratory Depth Respiratory Pattern Blood Pressure 194/82 H Blood Pressure [Left Arm] Blood Pressure Mean 119 Blood Pressure Mean [Left Arm] Blood Pressure Position [Left Arm] Pulse Oximetry 92 91 93 Oxygen Delivery Method 09/08/18 10:43 09/08/18 12:27 09/08/18 12:49 Temperature 36.8 C Temperature Source Oral Sepsis Recent Fever Within 48 Hours Sepsis New/Unexplained Change in Mental Status Sepsis Action Taken by Nursing Pulse Rate Pulse Rate [Left Finger] 94 H Pulse Rate from SpO2 Sensor 88 Respiratory Rate 18 Respiratory Effort / Characteristics Non-Labored Spontaneous Short of Breath SOB on Exertion Non-Labored Respiratory Depth Normal Normal Respiratory Pattern Regular Regular Blood Pressure Blood Pressure [Left Arm] 177/78 H Blood Pressure Mean Blood Pressure Mean [Left Arm] 111 Blood Pressure Position [Left Arm] Sitting Pulse Oximetry 94 Oxygen Delivery Method Room Air Room Air GENERAL: He is oriented to person, place, and time. He appears well-developed and well-nourished. He does not appear distressed. HENT: Exam performed. Head: Normocephalic and atraumatic. Right Ear: External ear normal. No mastoid tenderness. Left Ear: External ear normal. No mastoid tenderness. Mouth/Throat: The oropharynx is clear and moist. No trismus in the jaw. No dental abscesses or uvula swelling. No oropharyngeal exudate or tonsillar abscesses. EYES: Conjunctivae and EOM are normal. Pupils are equal, round, and reactive to light. Right eye exhibits no discharge. Left eye exhibits no discharge. No scleral icterus. NECK: Normal range of motion. Neck supple. No JVD present. No spinous process tenderness present. No carotid bruit present. No rigidity. No tracheal deviation and normal range of motion present. No Brudzinski's sign and no Kernig 's sign noted. CV: Normal rate, regular rhythm, normal heart sounds and intact distal pulses. There is no peripheral edema. Palpable radial pulses bue. PULM/CHEST: Effort normal and breath sounds normal. No respiratory distress. No stridor. He has no wheezes. He has no rales. Chest Wall: He exhibits no tenderness. ABD: The abdomen is soft. Bowel sounds are normal. He has distension. No mass is present. There is no tenderness. There is no rebound, no guarding, no Hernandez' s sign and no tenderness at McBurney's point. Rovsig negative MUSC/SKEL: Normal range of motion. There is no peripheral edema, tenderness or deformity. LYMPH: No cervical adenopathy. NEURO: He is alert and oriented to person, place, and time. He has normal strength. No cranial nerve deficit or sensory deficit. Coordination and gait normal. GCS eye subscore is 4. GCS verbal subscore is 5. GCS motor subscore is 6. cerbellar tests wnl. SKIN: Skin is warm and dry. He is not diaphoretic. PSYCH: He has a normal mood and affect. His behavior is normal. Judgment and thought content normal. Course 0714: Past medical records reviewed. The patient was evaluated in room B05, and a complete history and physical examination were performed. 0854: Vital signs stable. Repeat examination showed abdominal distention and pain in the RUQ. Labs show: leukocytosis of 15.83, bilirubin of 3.3, direct bilirubin of 2.3, AST of 334, ALT of 349, and an alk phos of 460. The patient's CT of the abdomen shows cholelithiasis and concerns for cholecystitis. The patient will be getting an ultrasound of the RUQ. Given the physcial examination , lab results, and CT results, the patient will be treated empirically for cholecystitis. He will be given Rocephin and Flagyl. The patient's CT also showed a large mass of the right retropertium concerning for lipoma versus liposarcoma. No bowel obstruction. 1102: Ultrasound of the right upper quadrant shows findings are concerning for acute cholecystitis, pericholecystic fluid and gallbladder wall thickening. I discussed the patient's case with Dr. Diaz, General Surgery. He requests the patient be admitted to the hospitalist for possible ERCP and a GI evaluation. 1110: I reviewed the patient's case with Dr. Hearn, [facility] Hospitalist. He will evaluate the patient for further management.I reevaluated the patient and discussed the findings with him. He verbalized agreement to a hospitalist evaluation and the treatment plan. The patient will be evaluated for further management and care. Administered Medications Discontinued Medications Sodium Chloride (Nss 1000ml) 500 mls @ 999 mls/hr IV .Q31M ONE Stop: 09/08/18 07:51 Last Infusion: 09/08/18 12:52 Dose: 0 mls/hr Admin: 09/08/18 08:30 Dose: 999 mls/hr Metronidazole (Flagyl) 500 mg in 100 mls @ 100 mls/hr IV NOW STA Stop: 09/08/18 09:58 Last Infusion: 09/08/18 12:52 Dose: 0 mls/hr Admin: 09/08/18 10:44 Dose: 100 mls/hr Ceftriaxone Sodium (Rocephin) 1,000 mg in 50 mls @ 100 mls/hr IV NOW STA Stop: 09/08/18 09:28 Last Infusion: 09/08/18 12:52 Dose: 0 mls/hr Admin: 09/08/18 09:37 Dose: 100 mls/hr Ondansetron HCl (Zofran) 4 mg IV NOW STA Stop: 09/08/18 07:22 Last Admin: 09/08/18 08:12 Dose: 4 mg Medical Decision Making Medical Records Attestation: I reviewed the patient's medical records. Home Medications Current Medication List: was personally reviewed by me Laboratory Data Attestation: I reviewed the patient's lab results. Result diagrams: 09/08/18 07:45 09/08/18 07:45 Lab Results 09/08/18 09/08/18 09/08/18 Range/Units 07:45 07:45 07:45 WBC 15.83 H (4.8-10.8) K/uL RBC 4.62 L (4.7-6.1) M/uL Hgb 14.0 (14.0-18.0) g/dL Hct 42.1 (42-52) % MCV 91.1 (80-100) fL MCH 30.3 (25-34) pg MCHC 33.3 (32-36) g/dL RDW Std Deviation 49.1 H (36.4-46.3) fL RDW Coeff of Alem 14.7 H (11.5-14.5) % Plt Count 245 (130-400) K/uL MPV 9.8 (7.4-10.4) fL Immature Gran % (Auto) 0.3 % Neut % (Auto) 79.0 % Lymph % (Auto) 10.7 % Bowie % (Auto) 8.8 % Eos % (Auto) 1.0 % Baso % (Auto) 0.2 % Immature Gran # (Auto) 0.05 H (0.00-0.02) K/uL Neut # (Auto) 12.49 H (1.4-6.5) K/uL Lymph # (Auto) 1.70 (1.2-3.4) K/uL Bowie # (Auto) 1.40 H (0.11-0.59) K/uL Eos # (Auto) 0.16 (0-0.5) K/uL Baso # (Auto) 0.03 (0-0.2) K/uL PT 12.4 H (9.0-12.0) Seconds INR 1.2 H (0.9-1.1) APTT 29.6 (21.0-31.0) Seconds PTT Ratio 1.1 Sodium 139 (136-145) mmol/L Potassium 4.2 (3.5-5.1) mmol/L Chloride 104 (98-107) mmol/L Carbon Dioxide 26 (21-32) mmol/L Anion Gap 9.0 (3-11) BUN 19 H (7-18) mg/dl Creatinine 1.28 (0.6-1.4) mg/dl Est Cr Clr Drug Dosing 59.4 ml/min Est GFR ( Amer) 60.4 Est GFR (Non-Af Amer) 52.1 BUN/Creatinine Ratio 15.0 (10-20) Glucose 156 H (70-99) mg/dl Calcium 8.2 L (8.5-10.1) mg/dl Total Bilirubin 3.3 H (0.2-1) mg/dl Direct Bilirubin 2.3 H (0-0.2) mg/dl AST 334 H (15-37) U/L ALT 349 H (12-78) U/L Alkaline Phosphatase 460 H (45-117) U/L Total Protein 6.6 (6.4-8.2) gm/dl Albumin 2.6 L (3.4-5.0) gm/dl Lipase 225 (73-393) U/L Urine Color Urine Appearance (Clear) Urine pH (4.5-7.5) Ur Specific Florence (1.000-1.030) Urine Protein (Negative) Urine Glucose (UA) (Negative) Urine Ketones (Negative) Urine Blood (Negative) Urine Nitrite (Negative) Urine Bilirubin (Negative) Urine Urobilinogen (Negative) Ur Leukocyte Esterase (Negative) Urine WBC (Auto) (0-5) /hpf Urine RBC (Auto) (0-4) /hpf U Hyaline Cast (Auto) (0-5) /lpf U Epithel Cells (Auto) (0-5) /lpf Urine Bacteria (Auto) (Negative) 09/08/18 Range/Units 08:00 WBC (4.8-10.8) K/uL RBC (4.7-6.1) M/uL Hgb (14.0-18.0) g/dL Hct (42-52) % MCV (80-100) fL MCH (25-34) pg MCHC (32-36) g/dL RDW Std Deviation (36.4-46.3) fL RDW Coeff of Alem (11.5-14.5) % Plt Count (130-400) K/uL MPV (7.4-10.4) fL Immature Gran % (Auto) % Neut % (Auto) % Lymph % (Auto) % Bowie % (Auto) % Eos % (Auto) % Baso % (Auto) % Immature Gran # (Auto) (0.00-0.02) K/uL Neut # (Auto) (1.4-6.5) K/uL Lymph # (Auto) (1.2-3.4) K/uL Bowie # (Auto) (0.11-0.59) K/uL Eos # (Auto) (0-0.5) K/uL Baso # (Auto) (0-0.2) K/uL PT (9.0-12.0) Seconds INR (0.9-1.1) APTT (21.0-31.0) Seconds PTT Ratio Sodium (136-145) mmol/L Potassium (3.5-5.1) mmol/L Chloride (98-107) mmol/L Carbon Dioxide (21-32) mmol/L Anion Gap (3-11) BUN (7-18) mg/dl Creatinine (0.6-1.4) mg/dl Est Cr Clr Drug Dosing ml/min Est GFR ( Amer) Est GFR (Non-Af Amer) BUN/Creatinine Ratio (10-20) Glucose (70-99) mg/dl Calcium (8.5-10.1) mg/dl Total Bilirubin (0.2-1) mg/dl Direct Bilirubin (0-0.2) mg/dl AST (15-37) U/L ALT (12-78) U/L Alkaline Phosphatase (45-117) U/L Total Protein (6.4-8.2) gm/dl Albumin (3.4-5.0) gm/dl Lipase (73-393) U/L Urine Color Dark Yellow Urine Appearance Clear (Clear) Urine pH 6.5 (4.5-7.5) Ur Specific Florence 1.023 (1.000-1.030) Urine Protein Negative (Negative) Urine Glucose (UA) Negative (Negative) Urine Ketones Trace H (Negative) Urine Blood Negative (Negative) Urine Nitrite Positive H (Negative) Urine Bilirubin 2+ H (Negative) Urine Urobilinogen Negative (Negative) Ur Leukocyte Esterase Trace H (Negative) Urine WBC (Auto) 1-5 (0-5) /hpf Urine RBC (Auto) 0-4 (0-4) /hpf U Hyaline Cast (Auto) 1-5 (0-5) /lpf U Epithel Cells (Auto) 5-10 H (0-5) /lpf Urine Bacteria (Auto) Negative (Negative) Imaging Data Radiologist's Impression: Radiology results as stated below per my review and the radiologist's interpretation: ABDOMEN AND PELVIS CT WITHOUT CONTRAST CT DOSE: 1487.59 mGy.cm HISTORY: Acute right-sided flank pain with abdominal distention. R flank pain abd distention TECHNIQUE: Multiaxial CT images of the abdomen and pelvis were performed without contrast. A dose lowering technique was utilized adhering to the principles of ALARA. COMPARISON STUDY: Chest CT 10/02/2017 FINDINGS: Bibasilar pleural calcifications. Calcifications are also noted about the left pericardial distribution. Pleural-based centrally calcified 0.5 cm nodule of the right lower lobe, unchanged. Multiple solid nodules of the bilateral lung bases appear new from comparison study measuring up to 7 mm. No pneumatosis or pneumoperitoneum. Imaged inferior cardiac chambers are normal in size with coronary arterial calcifications. Cholelithiasis with suggestion of mild gallbladder wall thickening and trace pericholecystic edema without gallbladder distention or biliary ductal dilation. Trace perihepatic ascites. Mild hepatic steatosis otherwise unremarkable appearance of the liver. The spleen, pancreas and right adrenal gland are unremarkable. Mild attending about the left adrenal gland. Mild nonspecific bilateral perinephric stranding. No renal calculi or obstructive uropathy. Mild wall thickening of the urinary bladder with partial distention. Mild prostamegaly. Trace free fluid about the pelvis. Trace fluid about the pancreaticoduodenal groove. No bowel obstruction. Mild circumferential rectal wall thickening with mild perirectal stranding. Colonic diverticulosis without acute diverticulitis. Appendix not definitively seen. Large and small bowel is displaced toward the central and left abdomen secondary to a large fatty attenuating lesion of the right retroperitoneum, likely arising from the posterior pararenal space which measures 22.7 x 23.1 x 17.3 cm, image 290 series 3. Centrally fatty attenuating structure with peripheral calcification noted centrally within this lesion, 11.8 x 2.3 x 2.9 cm. Soft tissues are within normal limits. Bones appear to be grossly intact. No suspicious lytic or blastic bony lesions. Degenerative changes of the spine, pelvis and hips. IMPRESSION: 1. Large mass of the right retroperitoneum which appears to arise from the posterior pararenal space measures up to 22.7 cm. This mass is predominantly fatty attenuating with minimal central complexity. 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 The mass causes mass effect and displacement of the adjacent large and small bowel. 2. No bowel obstruction. 3. Mild nonspecific wall thickening of the rectum, possibly reflecting an acute proctitis with mild adjacent perirectal inflammation and trace free pelvic fluid. Correlate with clinical exam and patient history. 4. Cholelithiasis with mild gallbladder wall thickening, pericholecystic fluid and trace perihepatic ascites. Correlate with right upper quadrant ultrasound to exclude acute cholecystitis. 5. New bilateral pulmonary nodules measure up to 7 mm. Follow-up nonemergent CT of the chest recommended to further evaluate. 6. Hepatic steatosis. 7. Additional findings as above. Electronically signed by: Clifton Acosta M.D. 09/08/2018 8:49 AM US gallbladder HISTORY: 83 years-old Male ro dara acute right upper quadrant abdominal pain COMPARISON: CT abdomen pelvis 09/08/2018 TECHNIQUE: Multiple real-time sonogram images of the abdominal right upper quadrant were obtained assessing grayscale appearance and color flow FINDINGS: The pancreas is mostly obscured by bowel gas. Hepatic steatosis without focal hepatic mass lesion or marginal nodularity. No intrahepatic biliary ductal dilation. Edematous gallbladder wall is thickened measuring up to 7 mm. 7 mm mobile stone is noted within the region of the gallbladder neck. No sonographic Hernandez sign reported. No significant gallbladder distention. Trace pericholecystic edema is better seen on comparison CT. The common bile duct is normal, 4 mm. Imaged right kidney is unremarkable without hydronephrosis. Partially imaged fatty mass of the retroperitoneum on the right redemonstrated. IMPRESSION: 1. Gallbladder wall thickening and cholelithiasis with trace pericholecystic edema. No associated significant gallbladder distention, however these findings are suspicious for acute cholecystitis in the appropriate clinical setting. 2. No biliary ductal dilation. 3. Hepatic steatosis. 4. Large fatty mass of the retroperitoneum, better seen and described on comparison CT of same day. The above report was generated using voice recognition software. It may contain grammatical, syntax or spelling errors. Electronically signed by: Clifton Acosta M.D. 09/08/2018 10:39 AM Blood Pressure Blood Pressure Findings: Elevated blood pressure Blood Pressure Disposition: further management by hospitalist MDM Narrative Patient's findings are concerning for acute cholecystitis. Discussed with general surgery who states admit to medicine for GI consult. Antibiotics given in the emergency department. Impression & Plan Acute cholecystitis Discharge Plan Visit Data *Final* Discharge Date/Time: 09/08/18 12:50 Chief Complaint: Vomiting Stated Complaint: VOMITING ED Provider: Emory Mitchell Discharge Problem: Acute cholecystitis Patient Disposition: Admitted As Inpatient Discharge Instructions Interventions: ED Discharge Assessment Last Done: 09/08/18 12:50 The scribe's documentation has been prepared under my direction and personally reviewed by me in its entirety. I confirm that the note above accurately reflects all work, treatment, procedures, and medical decision making performed by me.
--- NOTE | 2018-09-08 14:29 | XRay Report ---
XR chest 2V routine HISTORY: 83 years-old Male Pre op, dyspnea acute shortness of breath. Preoperative exam. COMPARISON: MRCP of same day, chest radiograph 6 08/10/2018, CT abdomen and pelvis 09/08/2018 TECHNIQUE: PA and lateral views of the chest FINDINGS: Cardiac silhouette is enlarged, unchanged. Calcification of the thoracic aortic arch. Bilateral pleur al calcifications redemonstrated. Lateral right midlung and bibasilar opacities suggestive of atelect asis/scarring. Bibasilar pulmonary nodules better seen on comparison CT. No pneumothorax, pleural eff usion or overt pulmonary edema. Degenerative changes of the shoulders and spine. IMPRESSION: 1. Cardiomegaly without overt pulmonary edema. 2. Bibasilar opacities suggest atelectasis/scarring. 3. Bilateral pleural calcifications and pulmonary nodules redemonstrated. The above report was generated using voice recognition software. It may contain grammatical, syntax o r spelling errors. Electronically signed by: Clifton Acosta M.D. 09/08/2018 2:28 PM
[2018-09-08] MEDS: SODIUM CHLORIDE 0.9% 1000ML 1,000 ML IV SCH (14:36)
[2018-09-08] MEDS: CIPROFLOXACIN 400 MG/200 ML BAG IV SCH (14:44)
[2018-09-08] MEDS: MoRPHine SULFATE 4 MG/ML 1 ML CARP\\VIAL IV PRN (14:47)
[2018-09-08] MEDS: HEPARIN SOD 5,000 UNIT/0.5 ML VIAL SQ SCH ×2 (14:49→22:05)
--- NOTE | 2018-09-08 14:53 | Magnetic Resonance Report ---
MR MRCP HISTORY: 83 years-old Male cholecystitis, r/o choledocholithiasis acute right upper quadrant abdomin al pain with cholelithiasis. Clinical concern for possible choledocholithiasis. COMPARISON: Right upper quadrant ultrasound, CT abdomen and pelvis of same day TECHNIQUE: MRCP without IV contrast was obtained according to institutional protocol FINDINGS: The study is degraded by artifact. The large [id number] lime trimmer localizer images demonstrate no gross abnormality. The liver appears en larged. No acute process about the imaged lower chest. Solid abdominal organs are otherwise unremarka ble. Large mass of the right retroperitoneum is better seen on comparison CT study. There is no small bowel obstruction. Trace right upper quadrant ascites is noted with fluid seen within the axel hepatis and pancreaticod uodenal groove. Mild circumferential wall thickening of the gallbladder with cholelithiasis better se en on comparison ultrasound. Probable gallstones seen near the gallbladder neck. The common bile duct is normal, 4 mm. No focal filling defects identified to suggest choledocholithiasis. No intrahepatic biliary ductal dilation or biliary mass lesions identified. No pancreatic ductal dilation. No signif icant gallbladder distention. IMPRESSION: 1. Limited exam as above. 2. Cholelithiasis with gallbladder wall thickening and pericholecystic fluid redemonstrated suspiciou s for acute cholecystitis. Trace perihepatic ascites with trace fluid along the pancreaticoduodenal g roove is likely reactive. 3. Normal appearance of the common bile duct without evidence of choledocholithiasis. The above report was generated using voice recognition software. It may contain grammatical, syntax o r spelling errors. Electronically signed by: Clifton Acosta M.D. 09/08/2018 2:51 PM
[2018-09-08] MEDS ORDERED: PERFLUTREN LIPID MICROSPHERE (DEFINITY) IV ONE (16:04)
--- NOTE | 2018-09-08 16:40 | Surgery Consultation ---
Date of Consultation September 08, 2018 Assessment & Plan (1) Acute cholecystitis: pt is a 83 year old male who was admitted to hospital for abdominal pain, CT scan U/S and MRCP dx acute cholecystitis with cholelithiasis, and retroperitoneal mass IMP: acute cholecystitis, cholelithiasis, retroperitoneal mass, UTI, plan, I recommend to do laparoscopic cholecystectomy, possible open or cholangiogram on Monday, D/W benefits, risks and alternatives of the surgery, the risks - infection, bleeding, injury CBD, bowel, IA, DVT, stroke, and , may need ERCP, pt understood, pt's family members at bedside, they agree with the surgery, I answered all questions, cardiology consult for pre-op cardiac clearance, repeat labs in am, retroperitoneal mass for out-pt follow up, pt should have PET scan out-pt base, will F/U History of Present Illness Attending Physician: Agustin Hearn, DO 83 yo male with history of DM type II, hypothyroidism, HTN and dyslipidemia presents to the ED today c/o right sided pain. He said that he has been getting this pain intermittently for the past few weeks. He did not note any association with eating. He said that the pain would last minutes to maybe half an hour. The pain was never severe enough for him to seek medical attention. Last night he noticed that the pain was more intense and then this morning the pain was severe. He did not have a fever but did have some chills. No nausea or vomiting. He had a very small BM this morning but mostly passed gas. He says that for a few weeks he has felt more bloated, passing more gas and his BM have been smaller. In the ED he had a leukocytosis of 15k, AST, ALT , bili and alk phos all elevated. CT abdomen and pelvis showed possible cholecytitis. RUQ US showed gall bladder wall thickening, gall stone, suggested cholecystitis. The common bile duct was not dilated on US. He was given IV fluids and Rocephin and Flagyl and admission requested. The ED physician talked with general surgery, asked that medicine admit the patient. The patient admits to some increase shortness of the breath over the past few months. He has been following with his PCP. They were in the process of setting up PFT, actually to be done next week, and then he would follow up with pulmonology. He gets short of breath on exertion and has been getting winded with less activity recently. He also has some pitting edema in the legs, he says that it has been there for a few weeks, not getting better but also not getting worse. He has never had an echo, no history of heart failure. He says that every now and then he gets a little bit of chest tightness, this occurs randomly, has not seen an association with exertion. His weight has been stable. He is compliant with his home medications. 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 He was planning on discussing this with the district captain next week. I ( Nina Diaz MD ) a call for consult cholecystitis,I reviewed pt's H/P with pt, now pt feels better, no significant abdominal pain, no nausea, no vomiting, no fever, CT Scan finding-IMPRESSION: 1. Large mass of the right retroperitoneum which appears to arise from the posterior pararenal space measures up to 22.7 cm. This mass is predominantly fatty attenuating with minimal central complexity. 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 The mass causes mass effect and displacement of the adjacent large and small bowel. 2. No bowel obstruction. 3. Mild nonspecific wall thickening of the rectum, possibly reflecting an acute proctitis with mild adjacent perirectal inflammation and trace free pelvic fluid. Correlate with clinical exam and patient history. 4. Cholelithiasis with mild gallbladder wall thickening, pericholecystic fluid and trace perihepatic ascites. Correlate with right upper quadrant ultrasound to exclude acute cholecystitis. 5. New bilateral pulmonary nodules measure up to 7 mm. Follow-up nonemergent CT of the chest recommended to further evaluate. 6. Hepatic steatosis. 7. Additional findings as above. Allergies Allergy/AdvReac Type Severity Reaction Status Date / Time CATS Allergy Intermediate FACE Uncoded 09/08/18 09:16 SWELLING Home Medications Home Medications Medication Instructions Recorded Confirmed Type glimepiride 2 mg PO QAM 09/08/18 09/08/18 History levothyroxine 75 mcg PO DAILY 09/08/18 09/08/18 History losartan 100 mg PO DAILY 09/08/18 09/08/18 History simvastatin 20 mg PO PM 09/08/18 09/08/18 History Patient History Medical History Acute cholecystitis (Acute) HTN (hypertension) (Chronic) Diabetes (Chronic) Acute cholecystitis Hip pain Knee sprain Surgical History History of appendectomy (Resolved) Family History Other FHx: cancer Family history of gallbladder disease Social History Current Living Situation: Spouse Other Information That Helps Us Care for You: No Feels Safe at Home: Yes Safety Concerns: Feels Safe At This Time Smoking Status: Never smoker Do You Dip or Chew Tobacco: No Hx Alcohol Use: No Hx Substance Use: No Beliefs That Will Affect Care: Mosque Mosque Beliefs: Zoroastrian Preferred Language: Kyrgyz Communication Ability: Effective Fretted Instruments Inspector Required: No Review of Systems Constitutional: as per Subjective / HPI Ear, Nose, Mouth, Throat: as per Subjective / HPI Respiratory: as per Subjective / HPI lung nodules, pneumonia, dyspnea Cardiovascular: as per Subjective / HPI Additional Comments: HTN Gastrointestinal: as per Subjective / HPI retroperitoneal mass Genitourinary (Male): as per Subjective / HPI Neurologic: as per Subjective / HPI Psychiatric: as per Subjective / HPI DM Hematologic / Lymphatic: as per Subjective / HPI Physical Exam 2 Vital Signs (Past 24 Hours): Last Vital Signs Temp 37.2 C 09/08/18 15:22 Pulse 97 H 09/08/18 15:22 Resp 19 09/08/18 15:22 BP 135/71 09/08/18 15:22 Pulse Ox 90 09/08/18 15:22 Constitutional: WD/WN, vitals as above well developed and well nourished Neck: trachea midline, no thyromegaly Respiratory: normal respiratory effort, lungs clear to auscultation normal respiratory effort Cardiovascular: RRR, no murmur, no edema Rate/Rhythm: regular rate and regular rhythm Gastrointestinal (Abdomen): normal bowel sounds, soft, nontender, no hepatosplenomegaly Percussion/Palpation: abdomen soft NT, ND BS + Neurologic: awake Psychiatric: Orientation: alert and oriented x 3 Lymphatic: no cervical or axillary lymphadenopathy Results & Data Laboratory Results Abnormal lab results 09/08/18 09/08/18 09/08/18 Range/Units 07:45 07:45 07:45 WBC 15.83 H (4.8-10.8) K/uL RBC 4.62 L (4.7-6.1) M/uL RDW Std Deviation 49.1 H (36.4-46.3) fL RDW Coeff of [place]lem 14.7 H (11.5-14.5) % Immature Gran # (Auto) 0.05 H (0.00-0.02) K/uL Neut # (Auto) 12.49 H (1.4-6.5) K/uL [place] # (Auto) 1.40 H (0.11-0.59) K/uL PT 12.4 H (9.0-12.0) Seconds INR 1.2 H (0.9-1.1) BUN 19 H (7-18) mg/dl Glucose 156 H (70-99) mg/dl Calcium 8.2 L (8.5-10.1) mg/dl Total Bilirubin 3.3 H (0.2-1) mg/dl Direct Bilirubin 2.3 H (0-0.2) mg/dl AST 334 H (15-37) U/L ALT 349 H (12-78) U/L Alkaline Phosphatase 460 H (45-117) U/L Albumin 2.6 L (3.4-5.0) gm/dl Urine Ketones (Negative) Urine Nitrite (Negative) Urine Bilirubin (Negative) Ur Leukocyte Esterase (Negative) U Epithel Cells (Auto) (0-5) /lpf 09/08/18 Range/Units 08:00 WBC (4.8-10.8) K/uL RBC (4.7-6.1) M/uL RDW Std Deviation (36.4-46.3) fL RDW Coeff of [place] (11.5-14.5) % Immature Gran # (Auto) (0.00-0.02) K/uL Neut # (Auto) (1.4-6.5) K/uL [place] # (Auto) (0.11-0.59) K/uL PT (9.0-12.0) Seconds INR (0.9-1.1) BUN (7-18) mg/dl Glucose (70-99) mg/dl Calcium (8.5-10.1) mg/dl Total Bilirubin (0.2-1) mg/dl Direct Bilirubin (0-0.2) mg/dl AST (15-37) U/L ALT (12-78) U/L Alkaline Phosphatase (45-117) U/L Albumin (3.4-5.0) gm/dl Urine Ketones Trace H (Negative) Urine Nitrite Positive H (Negative) Urine Bilirubin 2+ H (Negative) Ur Leukocyte Esterase Trace H (Negative) U Epithel Cells (Auto) 5-10 H (0-5) /lpf Diagnostic Findings CT sand abd + pelvis 09/08/2018-IMPRESSION: 1. Large mass of the right retroperitoneum which appears to arise from the posterior pararenal space measures up to 22.7 cm. This mass is predominantly fatty attenuating with minimal central complexity. 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 The mass causes mass effect and displacement of the adjacent large and small bowel. 2. No bowel obstruction. 3. Mild nonspecific wall thickening of the rectum, possibly reflecting an acute proctitis with mild adjacent perirectal inflammation and trace free pelvic fluid. Correlate with clinical exam and patient history. 4. Cholelithiasis with mild gallbladder wall thickening, pericholecystic fluid and trace perihepatic ascites. Correlate with right upper quadrant ultrasound to exclude acute cholecystitis. 5. New bilateral pulmonary nodules measure up to 7 mm. Follow-up nonemergent CT of the chest recommended to further evaluate. 6. Hepatic steatosis. US gallbladder HISTORY: 83 years-old Male ro dara acute right upper quadrant abdominal pain COMPARISON: CT abdomen pelvis 09/08/2018 TECHNIQUE: Multiple real-time sonogram images of the abdominal right upper quadrant were obtained assessing grayscale appearance and color flow FINDINGS: The pancreas is mostly obscured by bowel gas. Hepatic steatosis without focal hepatic mass lesion or marginal nodularity. No intrahepatic biliary ductal dilation. Edematous gallbladder wall is thickened measuring up to 7 mm. 7 mm mobile stone is noted within the region of the gallbladder neck. No sonographic Hernandez sign reported. No significant gallbladder distention. Trace pericholecystic edema is better seen on comparison CT. The common bile duct is normal, 4 mm. Imaged right kidney is unremarkable without hydronephrosis. Partially imaged fatty mass of the retroperitoneum on the right redemonstrated. IMPRESSION: 1. Gallbladder wall thickening and cholelithiasis with trace pericholecystic edema. No associated significant gallbladder distention, however these findings are suspicious for acute cholecystitis in the appropriate clinical setting. 2. No biliary ductal dilation. 3. Hepatic steatosis. 4. Large fatty mass of the retroperitoneum, better seen and described on comparison CT of same day. MR MRCP HISTORY: 83 years-old Male cholecystitis, r/o choledocholithiasis acute right upper quadrant abdominal pain with cholelithiasis. Clinical concern for possible choledocholithiasis. COMPARISON: Right upper quadrant ultrasound, CT abdomen and pelvis of same day TECHNIQUE: MRCP without IV contrast was obtained according to institutional protocol FINDINGS: The study is degraded by artifact. The large [id number] bag builder localizer images demonstrate no gross abnormality. The liver appears enlarged. No acute process about the imaged lower chest. Solid abdominal organs are otherwise unremarkable. Large mass of the right retroperitoneum is better seen on comparison CT study. There is no small bowel obstruction. Trace right upper quadrant ascites is noted with fluid seen within the axel hepatis and pancreaticoduodenal groove. Mild circumferential wall thickening of the gallbladder with cholelithiasis better seen on comparison ultrasound. Probable gallstones seen near the gallbladder neck. The common bile duct is normal, 4 mm. No focal filling defects identified to suggest choledocholithiasis. No intrahepatic biliary ductal dilation or biliary mass lesions identified. No pancreatic ductal dilation. No significant gallbladder distention. IMPRESSION: 1. Limited exam as above. 2. Cholelithiasis with gallbladder wall thickening and pericholecystic fluid redemonstrated suspicious for acute cholecystitis. Trace perihepatic ascites with trace fluid along the pancreaticoduodenal groove is likely reactive. 3. Normal appearance of the common bile duct without evidence of choledocholithiasis.
[2018-09-08] MEDS: INSULIN ASPART 100 UNITS/ML 3 ML PEN SC SCH ×2 (18:31→20:28)
[2018-09-08] MEDS: metroNIDAZOLE 500 MG/100 ML BAG IV SCH (20:33)
[2018-09-08] MEDS: ONDANSETRON INJ 2 MG/ML 2 ML VIAL IV PRN (23:36)
[2018-09-09] MEDS: SODIUM CHLORIDE 0.9% 1000ML 1,000 ML IV SCH ×2 (01:47→17:40)
[2018-09-09] MEDS: CIPROFLOXACIN 400 MG/200 ML BAG IV SCH (01:49)
[2018-09-09] MEDS: metroNIDAZOLE 500 MG/100 ML BAG IV SCH ×3 (03:49→19:42)
[2018-09-09 05:50] LABS: Basophils # (auto) 0.03 K/uL (0-0.2); Basophils % (auto) 0.2 %; Eosinophils # (auto) 0.06 K/uL (0-0.5); Eosinophils % (auto) 0.3 %; Hemoglobin 14.4 g/dL (14.0-18.0); Immature Granulocytes # (auto) 0.06 K/uL (0.00-0.02); Immature Granulocytes % (auto) 0.3 %; Lymphocytes # (auto) 2.33 K/uL (1.2-3.4); Lymphocytes % (auto) 12.8 %; Mean Corpuscular Hgb Conc 33.5 g/dL (32-36); Mean Corpuscular Volume 92.1 fL (80-100); Mean Platelet Volume 9.8 fL (7.4-10.4); Monocytes # (auto) 2.27 K/uL (0.11-0.59); Monocytes % (auto) 12.5 %; Neutrophils # (auto) 13.39 K/uL (1.4-6.5); Neutrophils % (auto) 73.9 %; Platelet Count 272 K/uL (130-400); RDW Coefficient of Variation 15.3 % (11.5-14.5); RDW Standard Deviation 50.9 fL (36.4-46.3); Red Blood Count 4.67 M/uL (4.7-6.1); White Blood Count 18.14 K/uL (4.8-10.8)
[2018-09-09] MEDS: HEPARIN SOD 5,000 UNIT/0.5 ML VIAL SQ SCH ×3 (05:54→21:21)
[2018-09-09] MEDS: LEVOTHYROXINE SODIUM 75 MCG TABLET PO SCH (05:56)
[2018-09-09 06:20] LABS: Albumin Level 2.6 gm/dl (3.4-5.0); BUN Creatinine Ratio 16.1 (10-20); Bilirubin Direct 2.7 mg/dl (0-0.2); Calcium 8.2 mg/dl (8.5-10.1); Creatinine Clr Calc Pharmacy 50.7 ml/min; Est GFR (African American) 49.9; Potassium 4.1 mmol/L (3.5-5.1)
[2018-09-09 06:23] LABS: Bilirubin,Total 3.6 mg/dl (0.2-1)
--- NOTE | 2018-09-09 08:23 | Anesthesiology Consultation ---
Date of Service September 09, 2018 Assessment & Plan (1) Encounter for pre-operative examination: Chart Review Chart Review: Acceptable Risk for Surgery and journal entry audit clerk initiated Consults Requested none NPO Date Last Intake of Fluids: 09/09/18 Date Last Intake of Solids: 09/06/18 Time Last Intake of Solids: 17:00 History Height/Weight Height: 5 ft 10 in Weight: 122.6 kg Allergies Allergy/AdvReac Type Severity Reaction Status Date / Time CATS Allergy Intermediate FACE Uncoded 09/08/18 09:16 SWELLING Medications Home Medications Medication Instructions Recorded Confirmed Last Taken glimepiride 2 mg PO QAM 09/08/18 09/08/18 Unknown levothyroxine 75 mcg PO DAILY 09/08/18 09/08/18 Unknown losartan 100 mg PO DAILY 09/08/18 09/08/18 Unknown simvastatin 20 mg PO PM 09/08/18 09/08/18 Unknown Active Medications Generic Name Dose Route Start Last Admin Trade Name Freq PRN Reason Stop Dose Admin Heparin Sodium (Porcine) 5,000 units 09/08/18 14:00 09/09/18 05:54 Heparin Sodium (Porcine) SQ 10/08/18 13:59 5,000 units Q8 SHALA Administration Sodium Chloride 1,000 mls @ 80 mls/hr 09/08/18 13:00 09/09/18 04:49 Nss 1000ml IV 10/08/18 12:59 80 mls/hr .[id number] SHALA Infusion Ciprofloxacin 400 mg in 200 mls @ 100 mls/hr 09/08/18 14:00 09/09/18 03:48 Cipro IV 09/18/18 13:59 Infused Q12H SHALA Infusion Protocol Metronidazole 500 mg in 100 mls @ 100 mls/hr 09/08/18 20:00 09/09/18 04:49 Flagyl IV 09/18/18 19:59 Infused Q8H SHALA Infusion Protocol Insulin Aspart 0 units 09/08/18 16:30 09/08/18 20:28 Novolog Flexpen SC 10/08/18 16:29 Not Given ACHS SHALA Levothyroxine Sodium 75 mcg 09/09/18 06:30 09/09/18 05:56 Synthroid PO 10/09/18 06:29 75 mcg DAILYBB SHALA Administration Morphine Sulfate 2 mg 09/08/18 12:48 09/08/18 14:47 Morphine Sulfate IV 09/22/18 12:47 2 mg Q4H PRN Administration Pain 1-5 Ondansetron HCl 4 mg 09/08/18 12:48 09/08/18 23:36 Zofran IV 10/08/18 12:47 4 mg Q6H PRN Administration Nausea Polyethylene Glycol 17 gm 09/08/18 12:48 09/09/18 01:47 Miralax Powder Packet PO 10/08/18 12:47 17 gm DAILY PRN Administration Constipation Past Medical History Medical History Acute cholecystitis (Acute) HTN (hypertension) (Chronic) Diabetes (Chronic) Acute cholecystitis Hip pain Hypothyroid Knee sprain Past Family History Family History Other FHx: cancer Family history of gallbladder disease Past Surgical History Surgical History History of appendectomy (Resolved) Social History Smoking Status: Never smoker Do You Dip or Chew Tobacco: No Hx Alcohol Use: No Hx Substance Use: No Physical Exam Vital Signs Last Vital Signs Temp 97.7 F 09/09/18 06:41 Pulse 79 09/09/18 06:41 Resp 18 09/09/18 06:41 BP 147/65 H 09/09/18 06:41 Pulse Ox 90 09/09/18 06:41 Testing Electrocardiogram Date: 09/08/18 Sinus tachycardia with 1st degree A-V block rate 102 bpm Possible Left atrial enlargement Possible Inferior infarct , age undetermined Possible Anterior infarct , age undetermined Chest X-Ray Date: 09/08/18 1. Cardiomegaly without overt pulmonary edema. 2. Bibasilar opacities suggest atelectasis/scarring. 3. Bilateral pleural calcifications and pulmonary nodules redemonstrated. Echocardiogram Date: 09/08/18 EF: 60-65% LV Function: normal RWMA: + none Other Findings: + atrial enlargement (LA mildly dilated) and + LVH (mild) Laboratory Results 09/09/18 05:28 09/09/18 05:28 PT 12.4 Seconds (9.0-12.0) H 09/08/18 07:45 INR 1.2 (0.9-1.1) H 09/08/18 07:45 APTT 29.6 Seconds (21.0-31.0) 09/08/18 07:45 Urine Color Dark Yellow 09/08/18 08:00 Urine Appearance Clear (Clear) 09/08/18 08:00 Urine pH 6.5 (4.5-7.5) 09/08/18 08:00 Ur Specific [place] 1.023 (1.000-1.030) 09/08/18 08:00 Urine Protein Negative (Negative) 09/08/18 08:00 Urine Glucose (UA) Negative (Negative) 09/08/18 08:00 Urine Ketones Trace (Negative) H 09/08/18 08:00 Urine Nitrite Positive (Negative) H 09/08/18 08:00 Ur Leukocyte Esterase Trace (Negative) H 09/08/18 08:00 Urine WBC (Auto) 1-5 /hpf (0-5) 09/08/18 08:00 Urine RBC (Auto) 0-4 /hpf (0-4) 09/08/18 08:00 U Hyaline Cast (Auto) 1-5 /lpf (0-5) 09/08/18 08:00 U Epithel Cells (Auto) 5-10 /lpf (0-5) H 09/08/18 08:00 Urine Bacteria (Auto) Negative (Negative) 09/08/18 08:00 09/08/18 20:22 POC Glucose 128 H
[2018-09-09] MEDS: MoRPHine SULFATE 4 MG/ML 1 ML CARP\\VIAL IV PRN ×2 (08:27→16:16)
--- NOTE | 2018-09-09 09:14 | Hospitalist Progress Note ---
Date of Service September 09, 2018 Assessment & Plan (1) Acute cholecystitis: diagnosed on CT as well as US, gall bladder wall thickening and cholelithiasis Cipro and Flagyl IV MRCP: confirms acute cholecystitis, no evidence of CBD dilation or choledocholithiasis consult general surgery, Dr. Diaz, plans to take to OR 09/10 no history of CHF but c/o acosta, echocardiogram is normal no valvular abnormalities preserved ejection fraction (2) Retroperitoneal mass: described as possible lipoma or low grade liposarcoma, 22 cm incidental finding as he is presenting with acute cholecystitis general surgery will be seeing patient, anticipate that he can follow up with them as outpatient, considering out pt PET (3) Dyspnea: ongoing issue for a few weeks/months scheduled for PFT next week as outpatient, has pleural scarring on CXR, this is chronic finding He may have diaphragmatic limitations due to this large mass (4) Peripheral edema: pitting edema, he may have issues with venous return due to this large mass in his abdomen compressing his vena cava (5) HTN (hypertension): continue Losartan (6) Diabetes: holding Glimepiride diabetic diet once he can eat Novolog SS (7) Pleural scarring: chronic issues, seen again today on CXR exposure 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 He also feels his abdomen is more firm and distended. His is at the bedside. She states that Dr. Diaz spoke to them on 09/08. Scheduling for surgery on he did speak about the large mass in his abdomen and the family will talk to Dr. Diaz in more detail Review of Systems ROS: No distress No double vision blurry vision No problems with speech or swallowing No palpitations, chest pain or pressure No Wheezing or breathing issues Mild abdominal pain diffusely not focused, no nausea vomiting diarrhea No burning urine urine frequency or changes in color No focal joint pain or muscle pain No skin rashes or oral lesions No unusual bruising or bleeding No focused back pain or numbness or loss of strength No changes in memory or confusion Physical Exam 2 Vital Signs (Past 24 Hours): Last Vital Signs Temp 36.5 C 02/24/19 06:41 Pulse 79 09/09/18 06:41 Resp 18 09/09/18 06:41 BP 147/65 H 09/09/18 06:41 Pulse Ox 90 09/09/18 06:41 The patient appeared well nourished and normally developed. He is mildly obese Vital signs as documented. Head exam is unremarkable. normocephalic, atraumatic Neck is without jugular venous distension, thyromegaly, or lymphademopathy Lungs are clear to auscultation and percussion. Cardiac exam reveals Rhythm is regular. First and second heart sounds normal. Abdominal exam patient's abdomen is protuberant there is no fluid wave, normal bowel sounds, no masses, no organomegaly Extremities are mildly edematous and both pedal pulses are present Neurologic exam is A&Ox3, no focal deficits, strength is equal bilateral Psychologically seems neither anxious or depressed Skin is warm Dry without bruises or lesions _ (1) Diabetes Chronic kidney disease stage: Diabetes mellitus complication detail: Diabetes mellitus complication status: without complication Diabetes mellitus non destructive testing scientist insulin use: without non destructive testing scientist use Diabetes mellitus macular edema: Diabetes mellitus type: type 2 Diabetic retinopathy severity: Laterality: Proliferative retinopathy type: Qualified Code(s): E11.9 - Type 2 diabetes mellitus without complications (2) Dyspnea Dyspnea type: dyspnea on exertion Qualified Code(s): R06.09 - Other forms of dyspnea (3) HTN (hypertension) Hypertension type: essential hypertension Qualified Code(s): I10 - Essential (primary) hypertension
[2018-09-09] MEDS: INSULIN ASPART 100 UNITS/ML 3 ML PEN SC SCH ×4 (09:38→21:22)
[2018-09-09] MEDS: LOSARTAN POTASSIUM 50 MG TAB PO SCH (09:39)
--- NOTE | 2018-09-09 12:17 | Surgery Progress Note ---
Date of Service September 09, 2018 pt is still have some lower abdominal pain, no nausea, no vomiting, Assessment & Plan (1) Acute cholecystitis: base on increase LFT (T ) bilirubin 2.7, most likely CBD obstruction, possible CBD stone, I recommend to consult GI for ERCP, then do laparoscopic cholecystectomy, possible open or cholangiogram, D/W benefits, risks and alternatives of the surgery, the risks - infection, bleeding , injury CBD, bowel, may need ERCP, [place], DVT, stroke, , pt and his understood, they agree with the plan, I answered all questions, repeat labs in am, start zosyn Subjective Constitutional: as per Subjective / HPI Ear, Nose, Mouth, Throat: as per Subjective / HPI Respiratory: as per Subjective / HPI Cardiovascular: as per Subjective / HPI Gastrointestinal: as per Subjective / HPI Genitourinary (Male): as per Subjective / HPI Neurologic: as per Subjective / HPI Psychiatric: as per Subjective / HPI Hematologic / Lymphatic: as per Subjective / HPI Physical Exam 2 Vital Signs (Past 24 Hours): Last Vital Signs Temp 36.5 C 09/09/18 06:41 Pulse 79 09/09/18 06:41 Resp 18 09/09/18 06:41 BP 147/65 H 09/09/18 06:41 Pulse Ox 90 09/09/18 06:41 Constitutional: WD/WN, vitals as above well developed and well nourished Neck: trachea midline, no thyromegaly Respiratory: normal respiratory effort, lungs clear to auscultation normal respiratory effort Cardiovascular: RRR, no murmur, no edema Rate/Rhythm: regular rate and regular rhythm Gastrointestinal (Abdomen): normal bowel sounds, soft, nontender, no hepatosplenomegaly Neurologic: awake Psychiatric: Orientation: alert and oriented x 3 Results & Data Laboratory Results Abnormal lab results 09/08/18 09/08/18 09/09/18 Range/Units 07:45 20:22 05:28 WBC 18.14 H (4.8-10.8) K/uL RBC 4.67 L (4.7-6.1) M/uL RDW Std Deviation 50.9 H (36.4-46.3) fL RDW Coeff of Alem 15.3 H (11.5-14.5) % Immature Gran # (Auto) 0.06 H (0.00-0.02) K/uL Neut # (Auto) 13.39 H (1.4-6.5) K/uL [place] # (Auto) 2.27 H (0.11-0.59) K/uL PT 12.4 H (9.0-12.0) Seconds INR 1.2 H (0.9-1.1) BUN (7-18) mg/dl Creatinine (0.6-1.4) mg/dl POC Glucose 128 H (70-99) Calcium (8.5-10.1) mg/dl Total Bilirubin (0.2-1) mg/dl Direct Bilirubin (0-0.2) mg/dl AST (15-37) U/L ALT (12-78) U/L Alkaline Phosphatase (45-117) U/L Albumin (3.4-5.0) gm/dl 09/09/18 Range/Units 05:28 WBC (4.8-10.8) K/uL RBC (4.7-6.1) M/uL RDW Std Deviation (36.4-46.3) fL RDW Coeff of Alem (11.5-14.5) % Immature Gran # (Auto) (0.00-0.02) K/uL Neut # (Auto) (1.4-6.5) K/uL [place] # (Auto) (0.11-0.59) K/uL PT (9.0-12.0) Seconds INR (0.9-1.1) BUN 24 H (7-18) mg/dl Creatinine 1.50 H (0.6-1.4) mg/dl POC Glucose (70-99) Calcium 8.2 L (8.5-10.1) mg/dl Total Bilirubin 3.6 H (0.2-1) mg/dl Direct Bilirubin 2.7 H (0-0.2) mg/dl AST 498 H (15-37) U/L ALT 386 H (12-78) U/L Alkaline Phosphatase 488 H (45-117) U/L Albumin 2.6 L (3.4-5.0) gm/dl
[2018-09-09] MEDS ORDERED: PIPERACILL/TAZOBAC CONSULT ACTIVE PRN (12:27)
[2018-09-09] MEDS ORDERED: PIPERACILLIN/TAZOBACTAM 3.375 GM in DEXTROSE 5% 100 ML IV SCH (12:30)
[2018-09-09] MEDS ORDERED: ATROPINE SULFATE 0.1 MG/ML 10ML SYR IV PRN (13:42)
[2018-09-09] MEDS ORDERED: ONDANSETRON INJ 2 MG/ML 2 ML VIAL IV PRN (13:42)
[2018-09-09] MEDS ORDERED: ePHEDrine sulfate 50 MG/ML AMP IV PRN (13:42)
[2018-09-09] MEDS ORDERED: fentaNYL citrate 100 MCG/2 ML VIAL IV PRN (13:42)
[2018-09-09] MEDS ORDERED: ONDANSETRON INJ 2 MG/ML 2 ML VIAL ONE (13:47)
[2018-09-09] MEDS ORDERED: LIDOCAINE HCL 2% 2 ML VIAL/AMP(20MG/ML) INFIL ONE (13:47)
[2018-09-09] MEDS ORDERED: fentaNYL citrate 100 MCG/2 ML VIAL ONE (13:47)
[2018-09-09] MEDS ORDERED: LIDOCAINE 2% 20 MG/ML 5 ML SYR IV ONE (13:47)
[2018-09-09] MEDS ORDERED: PROPOFOL IV EMULSION 10 MG/ML 20 ML VIAL IV ONE (13:47)
[2018-09-09] MEDS ORDERED: PIPERACILLIN/TAZOBACTAM 4.5 GM in DEXTROSE 5% 100 ML IV ONE (14:00)
--- NOTE | 2018-09-09 15:35 | History & Physical Report ---
Date of Service September 09, 2018 History of Present Illness Chief Complaint: ? ERCP Primary Care Provider: Herb Wilson MD 83 yo male with a history of htn, admitted with ruq pain, imaging c/w choleycstitis. Surgical plan is for cholecystectomy, however, surgery requesting ercp given bilirubin elevation. MRCP is negative for cbd dilation or stones. Patient is without complaints of fever, feels constipated. Is in no acute abdominal pain currently. Otherwise, without any other complaints at this time. Did discuss potential ERCP today and the team was ready to do it for him however , patient has eaten a full lunch. He is in no acute distress at this time. Allergies Allergy/AdvReac Type Severity Reaction Status Date / Time CATS Allergy Intermediate FACE Uncoded 09/08/18 09:16 SWELLING Home Medications Home Medications Medication Instructions Recorded Confirmed Type glimepiride 2 mg PO QAM 09/08/18 09/08/18 History levothyroxine 75 mcg PO DAILY 09/08/18 09/08/18 History losartan 100 mg PO DAILY 09/08/18 09/08/18 History simvastatin 20 mg PO PM 09/08/18 09/08/18 History Past Med/Surg History Medical History Acute cholecystitis (Acute) HTN (hypertension) (Chronic) Diabetes (Chronic) Acute cholecystitis Hip pain Hypothyroid Knee sprain Surgical History History of appendectomy (Resolved) Family History Other FHx: cancer Family history of gallbladder disease Social History Current Living Situation: Spouse Other Information That Helps Us Care for You: No Feels Safe at Home: Yes Safety Concerns: Feels Safe At This Time Smoking Status: Never smoker Do You Dip or Chew Tobacco: No Hx Alcohol Use: No Hx Substance Use: No Beliefs That Will Affect Care: Orthodoxy Orthodoxy Beliefs: Mandaen Communication Ability: Effective Review of Systems All systems reviewed & are unremarkable except as noted in HPI & below Physical Exam 2 Vital Signs (Past 24 Hours): Last Vital Signs Temp 36.5 C 09/09/18 06:41 Pulse 79 09/09/18 06:41 Resp 18 09/09/18 06:41 BP 147/65 H 09/09/18 06:41 Pulse Ox 90 09/09/18 06:41 Physical Exam: NAD Constitutional: well developed Cardiovascular: RRR, no murmur, no edema Gastrointestinal (Abdomen): Protuberant abdomen but soft nt nd +bs Results & Data Laboratory Results WBC count elevation TB /ast/alt/alk phos elevation Diagnostic Findings MRCP reviewed Code Status & VTE Plan VTE Prophylaxis Plan VTE Prophylaxis will be ordered: Yes Supervising Physician Co-Signing Physician Notes 83 yo male with a history of hl, diabetes, htn, hypothyroidism admitted this weekend with ruq pain, diagnosed with acute cholecystitis with plan for a cholecystectomy. GI consulted for pre-operative ercp given tb elevation, however MRCP negative for cbd dilation or stones. Attempt at ERCP was going to be done this afternoon and team had been called in and everyone was ready, however, patient had eaten a full lunch, therefore deferred at this time. Will discuss the case with the biliary attending for this upcoming week and see how best to proceed. Please keep empirically NPO and avoid blood thinners.
[2018-09-09] MEDS: PIPERACILLIN/TAZOBACTAM 4.5 GM in DEXTROSE 5% 100 ML IV SCH (19:42)
[2018-09-09] MEDS: ONDANSETRON INJ 2 MG/ML 2 ML VIAL IV PRN (21:25)
[2018-09-10] MEDS: MoRPHine SULFATE 4 MG/ML 1 ML CARP\\VIAL IV PRN (00:20)
[2018-09-10] MEDS ORDERED: PROCHLORPERAZINE 5 MG in SYRINGE 4 ML IV ONE (00:30)
[2018-09-10] MEDS: metroNIDAZOLE 500 MG/100 ML BAG IV SCH ×3 (03:00→20:00)
[2018-09-10] MEDS ORDERED: Nursing to Pharmacy Communication ONE ×2 (03:09→05:19)
[2018-09-10] MEDS: PIPERACILLIN/TAZOBACTAM 4.5 GM in DEXTROSE 5% 100 ML IV SCH ×3 (04:35→21:06)
[2018-09-10] MEDS: LEVOTHYROXINE SODIUM 75 MCG TABLET PO SCH (05:20)
[2018-09-10] MEDS: INSULIN ASPART 100 UNITS/ML 3 ML PEN SC SCH ×3 (06:31→19:53)
[2018-09-10 06:49] LABS: Basophils # (auto) 0.02 K/uL (0-0.2); Basophils % (auto) 0.1 %; Eosinophils # (auto) 0.04 K/uL (0-0.5); Eosinophils % (auto) 0.3 %; Hematocrit (blood only) 40.7 % (42-52); Hemoglobin 13.6 g/dL (14.0-18.0); Immature Granulocytes # (auto) 0.06 K/uL (0.00-0.02); Immature Granulocytes % (auto) 0.4 %; Lymphocytes # (auto) 1.86 K/uL (1.2-3.4); Lymphocytes % (auto) 12.2 %; Mean Corpuscular Hgb Conc 33.4 g/dL (32-36); Mean Corpuscular Volume 91.1 fL (80-100); Monocytes # (auto) 2.28 K/uL (0.11-0.59); Neutrophils # (auto) 10.96 K/uL (1.4-6.5); Platelet Count 268 K/uL (130-400); RDW Coefficient of Variation 15.6 % (11.5-14.5); RDW Standard Deviation 51.4 fL (36.4-46.3); Red Blood Count 4.47 M/uL (4.7-6.1); White Blood Count 15.22 K/uL (4.8-10.8)
[2018-09-10 07:16] LABS: Albumin Level 2.4 gm/dl (3.4-5.0); BUN Creatinine Ratio 15.3 (10-20); Bilirubin Direct 3.3 mg/dl (0-0.2); Calcium 7.7 mg/dl (8.5-10.1); Creatinine Clr Calc Pharmacy 39.2 ml/min; Est GFR (African American) 36.6; Est GFR (Non-African American) 31.5; Potassium 4.2 mmol/L (3.5-5.1)
[2018-09-10 07:20] LABS: Bilirubin,Total 4.3 mg/dl (0.2-1); Total Protein 6.2 gm/dl (6.4-8.2)
[2018-09-10] MEDS: SODIUM CHLORIDE 0.9% 1000ML 1,000 ML IV SCH ×2 (08:10→18:12)
[2018-09-10] MEDS: LOSARTAN POTASSIUM 50 MG TAB PO SCH (08:12)
--- NOTE | 2018-09-10 11:45 | Surgery Progress Note ---
Date of Service September 10, 2018 pt is still have some lower abdominal pain, no nausea, no vomiting, (T) bili up to 4.3 Assessment & Plan (1) Acute cholecystitis: pt will have ERCP today, I will do laparoscopic cholecystectomy, possible open or cholangiogram tomorrow , D/W benefits, risks and alternatives of the surgery, pt and his understood, they agree with the surgery, I answered call questions, Subjective Constitutional: as per Subjective / HPI Ear, Nose, Mouth, Throat: as per Subjective / HPI Respiratory: as per Subjective / HPI Cardiovascular: as per Subjective / HPI Gastrointestinal: as per Subjective / HPI Genitourinary (Male): as per Subjective / HPI Neurologic: as per Subjective / HPI Psychiatric: as per Subjective / HPI Hematologic / Lymphatic: as per Subjective / HPI Physical Exam 2 Vital Signs (Past 24 Hours): Last Vital Signs Temp 36.6 C 09/10/18 07:11 Pulse 75 09/10/18 07:11 Resp 18 09/10/18 07:11 BP 145/66 H 09/10/18 07:11 Pulse Ox 93 09/10/18 07:11 Constitutional: WD/WN, vitals as above well developed and well nourished Neck: trachea midline, no thyromegaly Respiratory: normal respiratory effort, lungs clear to auscultation Cardiovascular: RRR, no murmur, no edema Gastrointestinal (Abdomen): Percussion/Palpation: abdomen soft some tendernes at lower abdomen, no rebound pain, Neurologic: awake Psychiatric: Orientation: alert and oriented x 3 Results & Data Laboratory Results Abnormal lab results 09/09/18 09/10/18 09/10/18 Range/Units 17:12 06:09 06:09 WBC 15.22 H (4.8-10.8) K/uL RBC 4.47 L (4.7-6.1) M/uL Hgb 13.6 L (14.0-18.0) g/dL Hct 40.7 L (42-52) % RDW Std Deviation 51.4 H (36.4-46.3) fL RDW Coeff of Alem 15.6 H (11.5-14.5) % Immature Gran # (Auto) 0.06 H (0.00-0.02) K/uL Neut # (Auto) 10.96 H (1.4-6.5) K/uL Ray # (Auto) 2.28 H (0.11-0.59) K/uL Chloride 109 H (98-107) mmol/L BUN 30 H (7-18) mg/dl Creatinine 1.94 H D (0.6-1.4) mg/dl POC Glucose 122 H (70-99) Calcium 7.7 L (8.5-10.1) mg/dl Total Bilirubin 4.3 H (0.2-1) mg/dl Direct Bilirubin 3.3 H (0-0.2) mg/dl AST 467 H (15-37) U/L ALT 335 H (12-78) U/L Alkaline Phosphatase 478 H (45-117) U/L Total Protein 6.2 L (6.4-8.2) gm/dl Albumin 2.4 L (3.4-5.0) gm/dl
[2018-09-10] MEDS: HEPARIN SOD 5,000 UNIT/0.5 ML VIAL SQ SCH ×2 (13:39→21:12)
[2018-09-10] MEDS ORDERED: fentaNYL citrate 100 MCG/2 ML VIAL ONE ×2 (14:46→16:22)
[2018-09-10] MEDS ORDERED: PROPOFOL IV EMULSION 10 MG/ML 20 ML VIAL IV ONE (14:46)
[2018-09-10] MEDS ORDERED: SUCCINYLCHOLINE CHLORIDE 20 MG/ML 10 ML VIAL ONE (14:46)
[2018-09-10] MEDS ORDERED: ROCURONIUM BROMIDE 10 MG/ML 5 ML VIAL ONE (14:46)
[2018-09-10] MEDS ORDERED: LIDOCAINE HCL 2% 2 ML VIAL/AMP(20MG/ML) INFIL ONE (14:46)
--- NOTE | 2018-09-10 15:22 | History & Physical Report ---
Date of Service September 10, 2018 Assessment & Plan (1) Elevated liver enzymes: Patient found to have elevation of his liver associated enzymes associated with evidence of cholecystitis. Given the history we suspect that he likely has choledocholithiasis. I am also somewhat concerned given the elevated white blood count and I am concerned about underlying cholangitis. We are planning to do upper endoscopy with endoscopic ultrasound and likely ERCP today. We have discussed the risks of the procedures to include bleeding, infection, perforation, pain, pancreatitis and failed biliary cannulation. (2) Cholecystitis: History of Present Illness Chief Complaint: abdominal pain / jaundice Primary Care Provider: Herb Wilson MD Patient referred for upper endoscopy and endoscopic ultrasound to evaluate history of abdominal discomfort. Based on the patient's history we are concerned about common bile duct stones complicating his cholecystitis. We are planning to do upper endoscopy, endoscopic ultrasound with possible ERCP today. Allergies Allergy/AdvReac Type Severity Reaction Status Date / Time CATS Allergy Intermediate FACE Uncoded 09/08/18 09:16 SWELLING Home Medications Home Medications Medication Instructions Recorded Confirmed Type glimepiride 2 mg PO QAM 09/08/18 09/08/18 History levothyroxine 75 mcg PO DAILY 09/08/18 09/08/18 History losartan 100 mg PO DAILY 09/08/18 09/08/18 History simvastatin 20 mg PO PM 09/08/18 09/08/18 History Past Med/Surg History Medical History Acute cholecystitis (Acute) HTN (hypertension) (Chronic) Diabetes (Chronic) Acute cholecystitis Hip pain Hypothyroid Knee sprain Surgical History History of appendectomy (Resolved) Family History Other FHx: cancer Family history of gallbladder disease Social History Current Living Situation: Spouse Other Information That Helps Us Care for You: No Feels Safe at Home: Yes Safety Concerns: Feels Safe At This Time Smoking Status: Never smoker Do You Dip or Chew Tobacco: No Hx Alcohol Use: No Hx Substance Use: No Beliefs That Will Affect Care: Hoahaoism Hoahaoism Beliefs: Taoist Communication Ability: Effective Physical Exam 2 Vital Signs (Past 24 Hours): Last Vital Signs Temp 36.6 C 09/10/18 07:11 Pulse 75 09/10/18 07:11 Resp 18 09/10/18 07:11 BP 145/66 H 09/10/18 07:11 Pulse Ox 93 09/10/18 07:11 Eyes: Mild scleral icterus Respiratory: normal respiratory effort; no cough Cardiovascular: Heart Sounds: + murmur Gastrointestinal (Abdomen): Percussion/Palpation: + abdomen tender Right upper quadrant tender to palpation Code Status & VTE Plan VTE Prophylaxis Plan VTE Prophylaxis will be ordered: Yes
[2018-09-10] MEDS ORDERED: ATROPINE SULFATE 0.1 MG/ML 10ML SYR IV PRN (15:23)
[2018-09-10] MEDS ORDERED: LABETALOL HCL IV 5 MG/ML 20ML IV PRN (15:23)
[2018-09-10] MEDS ORDERED: fentaNYL citrate 100 MCG/2 ML VIAL IV PRN (15:23)
[2018-09-10] MEDS ORDERED: ONDANSETRON INJ 2 MG/ML 2 ML VIAL IV PRN (15:23)
[2018-09-10] MEDS ORDERED: INDOMETHACIN 50 MG SUPP PR ONE (15:45)
--- NOTE | 2018-09-10 15:46 | GI REPORT ---
Patient Name: Trip Abdullahi Procedure Date: 09/10/2018 3:35 PM Date of : 1935 Admit Type: Inpatient Age: 83 Gender: Male Attending MD: Nyla Copeland DO Procedure: Upper GI endoscopy Providers: Nyla Copeland DO Referring MD: Herb Contreras Indications: Epigastric abdominal pain Medicines: General Anesthesia Complications: No immediate complications. Estimated blood loss: Minimal. Estimated Blood Loss: Estimated blood loss was minimal. Procedure: Pre-Anesthesia Assessment: - Prior to the procedure, a History and Physical was performed, and patient medications, allergies and sensitivities were reviewed. The patient's tolerance of previous anesthesia was reviewed. - The risks and benefits of the procedure and the sedation options and risks were discussed with the patient. All questions were answered and informed consent was obtained. - Patient identification and proposed procedure were verified prior to the procedure by the physician, the nurse and the electro optics engineer. The procedure was verified in the procedure room. - Pre-procedure physical examination revealed no contraindications to sedation. - ASA Grade Assessment: III - A patient with severe systemic disease. - After reviewing the risks and benefits, the patient was deemed in satisfactory condition to undergo the procedure. - The anesthesia plan was to use general anesthesia. - Immediately prior to administration of medications, the patient was re-assessed for adequacy to receive sedatives. - The heart rate, respiratory rate, oxygen saturations, blood pressure, adequacy of pulmonary ventilation, and response to care were monitored throughout the procedure. - The physical status of the patient was re-assessed after the procedure. After obtaining informed consent, the endoscope was passed under direct vision. Throughout the procedure, the patient's blood pressure, pulse, and oxygen saturations were monitored continuously. The Endoscope was introduced through the mouth, and advanced to the third part of duodenum. The upper GI endoscopy was accomplished without difficulty. The patient tolerated the procedure well. Findings: The examined esophagus was normal. The Z-line was regular and was found 41 cm from the incisors. Diffuse moderate inflammation characterized by congestion (edema), erythema and granularity was found in the entire examined stomach. Biopsies were taken with a cold forceps for histology. Estimated blood loss was minimal. Diffuse moderate inflammation characterized by erythema, granularity and aphthous ulcerations was found in the entire duodenum. Impression: - Normal esophagus. - Z-line regular, 41 cm from the incisors. - Gastritis. Biopsied. - Duodenitis. Recommendation: - Perform an upper endoscopic ultrasound (UEUS) today. - Await pathology results. Nyla Copeland D.O. Nyla Copeland, 09/10/2018 3:45:56 PM This report has been signed electronically. Note Initiated On: 09/10/2018 3:35 PM Number of Addenda: 0 I attest to the content of the Intraoperative Record and orders documented therein, exceptions below {[id number]}
--- NOTE | 2018-09-10 16:36 | Post Operative Brief Note ---
Immediate Post Op Note v1 Date of Surgery September 10, 2018 Pre & Post Diagnosis Operation Date: 09/09/18 13:45 <No data on this case meets the specified criteria> Operation Date: 09/10/18 08:25 Pre-Op Diagnosis: CHOLECYSTITIS Post-Op Diagnosis: CHOLECYSTITIS Operation Date: 09/11/18 10:50 <No data on this case meets the specified criteria> Procedure Operation Date: 09/09/18 13:45 <No data on this case meets the specified criteria> Operation Date: 09/10/18 08:25 Actual Procedures p Endoscopic Ultrasonography Upper(Not Applicable) - Nyla Copeland s Endoscopic Retrograde Cholangiopancreatography - Nyla Copeland s EGD Biopsy Cytology(Not Applicable) - Nyla Copeland Operation Date: 09/11/18 10:50 <No data on this case meets the specified criteria> Surgeon Nyla Copeland Legal Recruiter none Estimated Blood Loss 0 Findings See Below (papillary stenosis, distal cbd stone, biliary stent placed, pancreatic stent placed)
--- NOTE | 2018-09-10 16:49 | GI REPORT ---
Patient Name: Trip Abdullahi Procedure Date: 09/10/2018 3:46 PM Date of : 1935 Admit Type: Inpatient Age: 83 Gender: Male Attending MD: Nyla Copeland DO Procedure: Upper EUS Providers: Nyla Copeland DO Referring MD: Agustin Gonzáles Dennis Shannon Indications: Elevated liver enzymes, Suspected choledocholithiasis, Epigastric abdominal pain, Abdominal pain in the right upper quadrant Medicines: General Anesthesia Complications: No immediate complications. Estimated blood loss: Minimal. Estimated Blood Loss: Estimated blood loss was minimal. Procedure: Pre-Anesthesia Assessment: - Prior to the procedure, a History and Physical was performed, and patient medications, allergies and sensitivities were reviewed. The patient's tolerance of previous anesthesia was reviewed. - The risks and benefits of the procedure and the sedation options and risks were discussed with the patient. All questions were answered and informed consent was obtained. - Patient identification and proposed procedure were verified prior to the procedure by the physician, the nurse and the health technician hearing. The procedure was verified in the procedure room. - Pre-procedure physical examination revealed no contraindications to sedation. - ASA Grade Assessment: III - A patient with severe systemic disease. - After reviewing the risks and benefits, the patient was deemed in satisfactory condition to undergo the procedure. - The anesthesia plan was to use general anesthesia. - Immediately prior to administration of medications, the patient was re-assessed for adequacy to receive sedatives. - The heart rate, respiratory rate, oxygen saturations, blood pressure, adequacy of pulmonary ventilation, and response to care were monitored throughout the procedure. - The physical status of the patient was re-assessed after the procedure. After obtaining informed consent, the endoscope was passed under direct vision. Throughout the procedure, the patient's blood pressure, pulse, and oxygen saturations were monitored continuously. The Endosonoscope was introduced through the mouth, and advanced to the second part of duodenum. The upper EUS was accomplished without difficulty. The patient tolerated the procedure well. Findings: ENDOSONOGRAPHIC FINDING: : Periampullary diverticulum Two stones were visualized endosonographically in the common bile duct. They were hyperechoic. The CBD was otherwise normal measuring 3 to 4 mm. There was no sign of significant endosonographic abnormality in the entire pancreas. No masses, the pancreatic duct was thin in caliber. No biopsies or other specimens were collected for this exam. No lymphadenopathy seen. Impression: - Two stones were visualized endosonographically in the common bile duct. - There was no sign of significant pathology in the entire pancreas. No specimens collected. Recommendation: - Perform an ERCP today. Nyla Copeland D.O. Nyla Copeland, 09/10/2018 4:48:52 PM This report has been signed electronically. Note Initiated On: 09/10/2018 3:46 PM Number of Addenda: 0 I attest to the content of the Intraoperative Record and orders documented therein, exceptions below {[id number]}
--- NOTE | 2018-09-10 16:54 | GI REPORT ---
Patient Name: Trip Abdullahi Procedure Date: 09/10/2018 3:59 PM Date of : 1935 Admit Type: Inpatient Age: 83 Gender: Male Attending MD: Nyla Copeland DO Procedure: ERCP Providers: Nyla Copeland DO Referring MD: Herb Contreras Indications: For therapy of bile duct stone(s), Elevated liver enzymes Medicines: General Anesthesia Complications: No immediate complications. Estimated blood loss: Minimal. Estimated Blood Loss: Estimated blood loss was minimal. Procedure: Pre-Anesthesia Assessment: - Prior to the procedure, a History and Physical was performed, and patient medications, allergies and sensitivities were reviewed. The patient's tolerance of previous anesthesia was reviewed. - The risks and benefits of the procedure and the sedation options and risks were discussed with the patient. All questions were answered and informed consent was obtained. - Patient identification and proposed procedure were verified prior to the procedure by the physician, the nurse and the machine farmworker. The procedure was verified in the procedure room. - Pre-procedure physical examination revealed no contraindications to sedation. - ASA Grade Assessment: III - A patient with severe systemic disease. - After reviewing the risks and benefits, the patient was deemed in satisfactory condition to undergo the procedure. - The anesthesia plan was to use general anesthesia. - Immediately prior to administration of medications, the patient was re-assessed for adequacy to receive sedatives. - The heart rate, respiratory rate, oxygen saturations, blood pressure, adequacy of pulmonary ventilation, and response to care were monitored throughout the procedure. - The physical status of the patient was re-assessed after the procedure. After obtaining informed consent, the scope was passed under direct vision. Throughout the procedure, the patient's blood pressure, pulse, and oxygen saturations were monitored continuously. The Scope was introduced through the mouth, and advanced to the duodenum and used to inject contrast into the bile duct. The ERCP was accomplished without difficulty. The patient tolerated the procedure well. Findings: The surveillance dual rate officer film was normal. The esophagus was successfully intubated under direct vision without detailed examination of the pharynx, larynx, and associated structures, and upper GI tract. The upper GI tract was grossly normal. The major papilla was located entirely within a diverticulum. The major papilla was congested. The ventral pancreatic duct was inadvertently cannulated with the short-nosed traction sphincterotome and guidewire without any complications. The bile duct was deeply cannulated with the short-nosed traction sphincterotome and guidewire. Contrast was injected. I personally interpreted the bile duct images. Contrast extended to the entire biliary tree. The biliary orifice was stenotic. This appeared benign. The lower third of the main bile duct contained filling defect(s) thought to be a stone. Biliary sphincterotomy was made with a monofilament Fusion OMNI sphincterotome using ERBE electrocautery. There was no post-sphincterotomy bleeding. To discover objects, the biliary tree was swept with an 8.5 mm balloon starting at the middle third of the main bile duct. One stone was removed. No stones remained. Pus was swept from the duct. One 10 Fr by 7 cm biliary stent with a single external flap and a single internal flap was placed 7 cm into the common bile duct. Bile flowed through the stent. The stent was in good position. One 5 Fr by 7 cm pancreatic stent with a full external pigtail and no internal flaps was placed 7 cm into the ventral pancreatic duct. Clear fluid flowed through the stent. The stent was in good position. The total fluoroscopy exposure time was 1 minute and 42 seconds. Indomethacin 100 mg was given via suppository to decrease the risk of post-ERCP pancreatitis (PEP). Impression: - Choledocholithiasis was found. Complete removal was accomplished by biliary sphincterotomy and balloon extraction. - A biliary sphincterotomy was performed. - The biliary tree was swept and pus was found. - One biliary stent was placed into the common bile duct. - One pancreatic stent was placed into the ventral pancreatic duct. - Indomethacin given to decrease risk of post-ERCP pancreatitis. Recommendation: - Return patient to [facility] for ongoing care. - Clear liquid diet today. - Observe patient's clinical course following today's ERCP with therapeutic intervention. - Repeat ERCP in 6 weeks to remove stent. - Use broad spectrum antibiotics for 2 weeks. Cholecystectomy per General Surgery. Nyla Copeland D.O. Nyla Copeland DO 09/10/2018 4:53:36 PM This report has been signed electronically. Note Initiated On: 09/10/2018 3:59 PM Number of Addenda: 0 I attest to the content of the Intraoperative Record and orders documented therein, exceptions below {[id number]}
--- NOTE | 2018-09-10 17:04 | Fluoroscopy Report ---
INTRAOPERATIVE RADIOGRAPHS CLINICAL HISTORY: ERCP. Duct exploration. Fluoroscopy time: 104 seconds. FINDINGS: 7 spot fluoroscopic images of the upper abdomen from an ERCP procedure are correlated with MRCP dated 09/08/2018. On the initial image the endoscope projects over the stomach a catheter project s over the pancreatic duct. The following images show opacification of the common bile duct. There is no intra or extrahepatic biliary ductal dilatation. No filling defects are identified to confirm the presence of choledocholithiasis. IMPRESSION: Intraoperative images from a duct exploration procedure as above. See operative report fo r detailed findings. Electronically signed by: Jose F Patel M.D. 09/10/2018 5:03 PM
--- NOTE | 2018-09-10 17:06 | Anesthesiology Progress Note ---
Date of Service September 10, 2018 Anesthesia Post Procedure Vital Signs Vital Signs: Temp Pulse Pulse Resp BP BP Pulse Ox 09/10/18 17:00 78 16 186/83 H 97 09/10/18 16:50 71 16 162/69 H 97 09/10/18 16:43 36.0 C L 77 16 160/67 H 96 09/10/18 15:19 36.6 C 81 16 182/86 H 94 09/10/18 07:11 36.6 C 75 18 145/66 H 93 09/10/18 06:00 97 09/09/18 23:20 36.6 C 90 20 135/73 93 Pain Intensity Abdomen: Pain Intensity: 5 Notes Mental Status: alert / awake / arousable Patient Amnestic to Procedure: Yes Nausea / Vomiting: adequately controlled Pain: adequately controlled Airway Patency, RR, SpO2: stable & adequate BP & HR: stable & adequate Hydration State: stable & adequate Anesthetic Complications: no major complications apparent
--- NOTE | 2018-09-10 17:18 | Hospitalist Progress Note ---
Date of Service September 10, 2018 Assessment & Plan (1) Choledocholithiasis with acute cholecystitis: diagnosed on CT as well as US, gall bladder wall thickening and cholelithiasis Cipro and Flagyl IV, continue MRCP: confirms acute cholecystitis, no evidence of CBD dilation or choledocholithiasis Bili and AST/ALT idris despite antibiotics, WBC up on 09/09 GI consulted, ERCP today with choledocholithiasis, balloon extraction and stents placed consult general surgery, Dr. 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 incidental finding as he is presenting with acute cholecystitis general surgery will be seeing patient, anticipate that he can follow up with them as outpatient, considering out pt PET (4) Dyspnea: ongoing issue for a few weeks/months scheduled for PFT next week as outpatient, has pleural scarring on CXR, this is chronic finding He may have diaphragmatic limitations due to this large mass echo with preserved EF, no diastolic dysfunction (5) Peripheral edema: pitting edema, he may have issues with venous return due to this large mass in his abdomen compressing his vena cava hold on any diuretics as Cr is up to 1.9 (6) HTN (hypertension): hold Losartan due to BERTRAM (7) Diabetes: holding Glimepiride diabetic diet once he can eat Novolog SS (8) Pleural scarring: chronic issues, seen again today on CXR exposure to 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 has a follow up with pulmonology (9) Pulmonary nodules: again, chronic finding, have appeared stable on imaging (10) DVT prophylaxis: Heparin SC Subjective patient c/o pain in lower abdomen bilaterally, says he is still passing gas but no stool reviewed labs, Cr up to 1.9 from 1.5, Bili and AST/ALT elevated went for EUS and then ERCP today two stones in CBD with pus, sphincterotomy and balloon extraction successful, stent placed in CBD and pancreatic duct plan for cholecystectomy tomorrow no chest pain, no dyspnea, no fever/chills WBC down to 15k from 18k Review of Systems All systems reviewed & are unremarkable except as noted in HPI & below Gastrointestinal: + abdominal pain (lower pain, nothing in RUQ) and + constipation; no nausea, no vomiting and no diarrhea/loose stools Physical Exam 2 Vital Signs (Past 24 Hours): Last Vital Signs Temp 36.0 C L 09/10/18 16:43 Pulse 71 09/10/18 17:10 Resp 16 09/10/18 17:10 BP 172/74 H 09/10/18 17:10 Pulse Ox 96 09/10/18 17:10 Constitutional: WD/WN, vitals as above + obese Eyes: PERRL, conjunctivae normal, anicteric sclerae ENMT: external ear and nose normal, oropharynx normal Neck: trachea midline, no thyromegaly Respiratory: normal respiratory effort, lungs clear to auscultation Cardiovascular: Rate/Rhythm: regular rate and regular rhythm Heart Sounds: normal S1 and normal S2; no murmur Vessels: no JVD Extremities: + pedal edema (bilaterally, 1+ pitting) Gastrointestinal (Abdomen): Inspection/Auscultation: + abdomen distended and + hypoactive bowel sounds Percussion/Palpation: abdomen soft and + tympanic to percussion; no guarding Musculoskeletal: no cyanosis or clubbing, extremities motor strength 5/5 Skin: no rashes, warm and dry Neurologic: patellar DTR's 2+ bilat, sensation intact and PERRL, EOMI, accommodation nl, no face palsy, no dysarthria Psychiatric: A+Ox3, euthymic affect Lymphatic: no cervical or axillary lymphadenopathy Results & Data Laboratory Results Laboratory Results - last 24 hr 09/10/18 09/10/18 09/10/18 05:35 06:09 06:09 WBC 15.22 H RBC 4.47 L Hgb 13.6 L Hct 40.7 L MCV 91.1 MCH 30.4 MCHC 33.4 RDW Std Deviation 51.4 H RDW Coeff of Alem 15.6 H Plt Count 268 MPV 10.0 Immature Gran % (Auto) 0.4 Neut % (Auto) 72.0 Lymph % (Auto) 12.2 Carlisle % (Auto) 15.0 Eos % (Auto) 0.3 Baso % (Auto) 0.1 Immature Gran # (Auto) 0.06 H Neut # (Auto) 10.96 H Lymph # (Auto) 1.86 Carlisle # (Auto) 2.28 H Eos # (Auto) 0.04 Baso # (Auto) 0.02 Sodium 142 Potassium 4.2 Chloride 109 H Carbon Dioxide 23 Anion Gap 9.0 BUN 30 H Creatinine 1.94 H D Est Cr Clr Drug Dosing 39.2 Est GFR ( Amer) 36.6 Est GFR (Non-Af Amer) 31.5 BUN/Creatinine Ratio 15.3 Glucose 80 POC Glucose 78 Calcium 7.7 L Total Bilirubin 4.3 H Direct Bilirubin 3.3 H AST 467 H ALT 335 H Alkaline Phosphatase 478 H Total Protein 6.2 L Albumin 2.4 L 09/10/18 09/10/18 09/10/18 08:18 12:06 12:29 WBC RBC Hgb Hct MCV MCH MCHC RDW Std Deviation RDW Coeff of Alem Plt Count MPV Immature Gran % (Auto) Neut % (Auto) Lymph % (Auto) Carlisle % (Auto) Eos % (Auto) Baso % (Auto) Immature Gran # (Auto) Neut # (Auto) Lymph # (Auto) Carlisle # (Auto) Eos # (Auto) Baso # (Auto) Sodium Potassium Chloride Carbon Dioxide Anion Gap BUN Creatinine Est Cr Clr Drug Dosing Est GFR ( Amer) Est GFR (Non-Af Amer) BUN/Creatinine Ratio Glucose POC Glucose 77 69 L* 116 H Calcium Total Bilirubin Direct Bilirubin AST ALT Alkaline Phosphatase Total Protein Albumin 09/10/18 09/10/18 09/10/18 15:18 16:53 18:14 WBC RBC Hgb Hct MCV MCH MCHC RDW Std Deviation RDW Coeff of Alem Plt Count MPV Immature Gran % (Auto) Neut % (Auto) Lymph % (Auto) Carlisle % (Auto) Eos % (Auto) Baso % (Auto) Immature Gran # (Auto) Neut # (Auto) Lymph # (Auto) Carlisle # (Auto) Eos # (Auto) Baso # (Auto) Sodium Potassium Chloride Carbon Dioxide Anion Gap BUN Creatinine Est Cr Clr Drug Dosing Est GFR ( Amer) Est GFR (Non-Af Amer) BUN/Creatinine Ratio Glucose POC Glucose 72 72 85 Calcium Total Bilirubin Direct Bilirubin AST ALT Alkaline Phosphatase Total Protein Albumin Diagnostic Findings ERCP: showed two stones in CBD, sphincterotomy and balloon extraction performed stent placed in CBD and pancreatic duct Medications Administered Current Inpatient Medications Acetaminophen (Tylenol) 650 mg PO Q4H PRN PRN Reason: pain/fever Stop: 10/08/18 12:47 Dextrose (Dextrose 50%) 25 - 50 ml IV UD PRN; Protocol PRN Reason: Hypoglycemia Protocol Stop: 10/08/18 12:56 Last Admin: 09/10/18 12:14 Dose: 25 ml Glucagon (Glucagen) 1 mg IM UD PRN; Protocol PRN Reason: Hypoglycemia Protocol Stop: 10/08/18 12:56 Glucose (Glucose 40%) 15 - 30 gm PO UD PRN; Protocol PRN Reason: Hypoglycemia Protocol Stop: 10/08/18 12:56 Glucose (Dex4 Glucose) 4 - 8 tabs PO UD PRN; Protocol PRN Reason: Hypoglycemia Protocol Stop: 10/08/18 12:56 Heparin Sodium (Porcine) (Heparin Sodium (Porcine)) 5,000 units SQ Q8 SHALA Stop: 10/08/18 13:59 Last Admin: 09/10/18 21:12 Dose: 5,000 units Sodium Chloride (Nss 1000ml) 1,000 mls @ 80 mls/hr IV .[id number] SHALA Stop: 10/08/18 12:59 Last Admin: 09/10/18 18:12 Dose: 80 mls/hr Metronidazole (Flagyl) 500 mg in 100 mls @ 100 mls/hr IV Q8H SHALA; Protocol Stop: 09/18/18 19:59 Last Infusion: 09/10/18 21:05 Dose: Infused Piperacillin Sod/Tazobactam (Sod 4.5 gm/ Dextrose) 120 mls @ 30 mls/hr IV Q8H SHALA; Protocol Stop: 09/11/18 19:59 Last Admin: 09/10/18 21:06 Dose: 30 mls/hr Insulin Aspart (Novolog Flexpen) 0 units SC Q6 SHALA Stop: 10/10/18 05:59 Last Admin: 09/10/18 19:53 Dose: Not Given Levothyroxine Sodium (Synthroid) 75 mcg PO DAILYBB [facility] Stop: 10/09/18 06:29 Last Admin: 09/10/18 05:20 Dose: Not Given Miscellaneous (Carbohydrates For Hypoglycemia) 15 - 30 gm PO UD PRN PRN Reason: Hypoglycemia Treatment Stop: 10/08/18 12:56 Miscellaneous Information (Consult) 1 ea N/A UD PRN PRN Reason: Consult Stop: 10/09/18 12:26 Morphine Sulfate (Morphine Sulfate) 2 mg IV Q4H PRN PRN Reason: Pain 1-5 Stop: 09/22/18 12:47 Last Admin: 09/10/18 00:20 Dose: 2 mg Morphine Sulfate (Morphine Sulfate) 4 mg IV Q4H PRN PRN Reason: Severe Pain 6-10 Stop: 09/22/18 12:47 Last Admin: 09/10/18 08:15 Dose: 4 mg Ondansetron HCl (Zofran) 4 mg IV Q6H PRN PRN Reason: Nausea Stop: 10/08/18 12:47 Last Admin: 09/09/18 21:25 Dose: 4 mg Polyethylene Glycol (Miralax Powder Packet) 17 gm PO DAILY PRN PRN Reason: Constipation Stop: 10/08/18 12:47 Last Admin: 09/09/18 01:47 Dose: 17 gm _ (1) Diabetes Chronic kidney disease stage: Diabetes mellitus complication detail: Diabetes mellitus complication status: without complication Diabetes mellitus jail insulin use: without jail use Diabetes mellitus macular edema: Diabetes mellitus type: type 2 Diabetic retinopathy severity: Laterality: Proliferative retinopathy type: Qualified Code(s): E11.9 - Type 2 diabetes mellitus without complications (2) Dyspnea Dyspnea type: dyspnea on exertion Qualified Code(s): R06.09 - Other forms of dyspnea (3) HTN (hypertension) Hypertension type: essential hypertension Qualified Code(s): I10 - Essential (primary) hypertension
[2018-09-11] MEDS: INSULIN ASPART 100 UNITS/ML 3 ML PEN SC SCH ×5 (00:09→21:04)
[2018-09-11] MEDS: PIPERACILLIN/TAZOBACTAM 4.5 GM in DEXTROSE 5% 100 ML IV SCH ×2 (04:12→13:43)
[2018-09-11] MEDS: metroNIDAZOLE 500 MG/100 ML BAG IV SCH (04:12)
[2018-09-11] MEDS: SODIUM CHLORIDE 0.9% 1000ML 1,000 ML IV SCH (04:13)
[2018-09-11] MEDS: ONDANSETRON INJ 2 MG/ML 2 ML VIAL IV PRN (04:23)
[2018-09-11] MEDS: LEVOTHYROXINE SODIUM 75 MCG TABLET PO SCH (04:35)
[2018-09-11] MEDS: HEPARIN SOD 5,000 UNIT/0.5 ML VIAL SQ SCH ×3 (06:04→21:02)
[2018-09-11 07:16] LABS: Basophils # (auto) 0.02 K/uL (0-0.2); Basophils % (auto) 0.1 %; Eosinophils # (auto) 0.11 K/uL (0-0.5); Eosinophils % (auto) 0.7 %; Hematocrit (blood only) 41.2 % (42-52); Hemoglobin 13.8 g/dL (14.0-18.0); Immature Granulocytes # (auto) 0.07 K/uL (0.00-0.02); Immature Granulocytes % (auto) 0.5 %; Lymphocytes # (auto) 1.27 K/uL (1.2-3.4); Lymphocytes % (auto) 8.6 %; Mean Corpuscular Hgb Conc 33.5 g/dL (32-36); Mean Platelet Volume 9.6 fL (7.4-10.4); Monocytes % (auto) 12.2 %; Neutrophils # (auto) 11.47 K/uL (1.4-6.5); Neutrophils % (auto) 77.9 %; Platelet Count 285 K/uL (130-400); RDW Coefficient of Variation 16.1 % (11.5-14.5); RDW Standard Deviation 52.9 fL (36.4-46.3); Red Blood Count 4.48 M/uL (4.7-6.1); White Blood Count 14.74 K/uL (4.8-10.8)
--- NOTE | 2018-09-11 07:59 | Anesthesiology Progress Note ---
Date of Service September 11, 2018 Anesthesia Post Procedure Vital Signs Vital Signs: Temp Pulse Pulse Pulse Resp BP BP 09/11/18 07:32 36.5 C 82 18 179/77 H 09/11/18 03:25 36.3 C L 75 20 176/73 H 09/11/18 00:00 36.4 C L 70 18 143/63 H 09/10/18 21:11 09/10/18 20:50 36.4 C L 80 18 158/66 H 09/10/18 20:05 75 178/70 H 09/10/18 19:40 36.6 C 77 20 203/83 H 09/10/18 18:28 70 20 151/70 H 09/10/18 18:15 75 16 163/69 H 09/10/18 17:30 36.4 C L 78 18 187/80 H 09/10/18 17:20 36.5 C 69 16 179/74 H 09/10/18 17:10 71 16 172/74 H 09/10/18 17:00 78 16 186/83 H 09/10/18 16:50 71 16 162/69 H 09/10/18 16:43 36.0 C L 77 16 160/67 H 09/10/18 15:19 36.6 C 81 16 182/86 H Pulse Ox 09/11/18 07:32 94 09/11/18 03:25 94 09/11/18 00:00 94 09/10/18 21:11 95 09/10/18 20:50 96 09/10/18 20:05 97 09/10/18 19:40 91 09/10/18 18:28 96 09/10/18 18:15 97 09/10/18 17:30 92 09/10/18 17:20 96 09/10/18 17:10 96 09/10/18 17:00 97 09/10/18 16:50 97 09/10/18 16:43 96 09/10/18 15:19 94 Pain Intensity Abdomen: Pain Intensity: 0 Notes Mental Status: alert / awake / arousable Patient Amnestic to Procedure: Yes Nausea / Vomiting: adequately controlled Pain: adequately controlled and improving with treatment Airway Patency, RR, SpO2: stable & adequate BP & HR: stable & adequate Hydration State: stable & adequate Anesthetic Complications: no major complications apparent
[2018-09-11 08:41] LABS: Albumin Level 2.1 gm/dl (3.4-5.0); BUN Creatinine Ratio 20.2 (10-20); Bilirubin Direct 3.2 mg/dl (0-0.2); Calcium 7.5 mg/dl (8.5-10.1); Creatinine Clr Calc Pharmacy 45.3 ml/min; Est GFR (African American) 43.5; Est GFR (Non-African American) 37.5
[2018-09-11 08:44] LABS: Bilirubin,Total 4.2 mg/dl (0.2-1)
[2018-09-11] MEDS ORDERED: AMLODIPINE BESYLATE 5 MG TAB PO ONE (08:44)
[2018-09-11] MEDS: SODIUM BICARBONATE 8.4% 75 MEQ in SODIUM CHLORIDE 0.45 % 1,000 ML IV SCH ×2 (09:45→16:56)
--- NOTE | 2018-09-11 10:28 | History & Physical Bridge Note ---
Date of Service September 11, 2018 History & Physical Bridge Note I have examined the patient, reviewed the History & Physical and in the interval since the performance of the History & Physical I have noted the following changes of clinical significance: no changes noted
[2018-09-11] MEDS ORDERED: CEFAZOLIN 2,000 MG/15 ML IV PUSH IV ONE (10:30)
[2018-09-11] MEDS ORDERED: BACITRACIN OINT 15 GM TUBE ONE (10:33)
[2018-09-11] MEDS ORDERED: BUPIVACAINE 0.5 % 5 MG/1 ML MPF 30ML VIAL ONE (10:33)
[2018-09-11] MEDS ORDERED: LIDOCAINE HCL 1% 20 ML VIAL ONE (10:33)
[2018-09-11] MEDS ORDERED: PROPOFOL IV EMULSION 10 MG/ML 20 ML VIAL IV ONE (10:39)
[2018-09-11] MEDS ORDERED: PHENYLEPHRINE HCL 10 MG/ML VIAL ONE (10:39)
[2018-09-11] MEDS ORDERED: NEOSTIGMINE METHYLSULFATE 5 MG/5 ML SYR ONE (10:39)
[2018-09-11] MEDS ORDERED: ePHEDrine sulfate 50 MG/ML AMP ONE (10:39)
[2018-09-11] MEDS ORDERED: GLYCOPYRROLATE 0.2 MG/ML VIAL ONE (10:39)
[2018-09-11] MEDS ORDERED: SUCCINYLCHOLINE CHLORIDE 20 MG/ML 10 ML VIAL ONE (10:39)
[2018-09-11] MEDS ORDERED: LIDOCAINE HCL 2% 2 ML VIAL/AMP(20MG/ML) INFIL ONE (10:39)
[2018-09-11] MEDS ORDERED: ONDANSETRON INJ 2 MG/ML 2 ML VIAL ONE (10:39)
[2018-09-11] MEDS ORDERED: DEXAMETHASONE SOD INJ 4 MG/ML VIAL ONE (10:39)
[2018-09-11] MEDS ORDERED: fentaNYL citrate 100 MCG/2 ML VIAL ONE (10:40)
[2018-09-11] MEDS ORDERED: ATROPINE SULFATE 0.1 MG/ML 10ML SYR IV PRN (10:59)
[2018-09-11] MEDS ORDERED: DEXAMETHASONE SOD INJ 4 MG/ML VIAL IV PRN (10:59)
[2018-09-11] MEDS ORDERED: fentaNYL citrate 100 MCG/2 ML VIAL IV PRN (10:59)
[2018-09-11] MEDS ORDERED: HYDROmorphone INJ 1 MG/ML SYRINGE IV PRN (10:59)
[2018-09-11] MEDS ORDERED: ONDANSETRON INJ 2 MG/ML 2 ML VIAL IV PRN (10:59)
[2018-09-11] MEDS ORDERED: ePHEDrine sulfate 50 MG/ML AMP IV PRN (10:59)
--- NOTE | 2018-09-11 13:16 | Post Operative Brief Note ---
Immediate Post Op Note v1 Date of Surgery September 11, 2018 Pre & Post Diagnosis Operation Date: 09/09/18 13:45 <No data on this case meets the specified criteria> Operation Date: 09/10/18 08:25 Pre-Op Diagnosis:ACUTE CHOLECYSTITIS, CHOLELITHIASIS Post-Op Diagnosis:ACUTE CHOLECYSTITIS, CHOLELITHIASIS, CIRRHOSIS Operation Date: 09/11/18 10:50 Pre-Op Diagnosis: Acute Cholecystitis Post-Op Diagnosis: Acute Cholecystitis Procedure Operation Date: 09/09/18 13:45 <No data on this case meets the specified criteria> Operation Date: 09/10/18 08:25 Actual Procedures p Endoscopic Ultrasonography Upper(Not Applicable) - Nyla carrizales Endoscopic Retrograde Cholangiopancreatography - Nyla carrizales EGD Biopsy Cytology(Not Applicable) - Nyla Copeland Operation Date: 09/11/18 10:50 Actual Procedures p Laparoscopic sub-total Cholecystectomy(Not Applicable) - Nina Diaz MD Surgeon Nina Diaz MD Wastewater Superintendent surgical instruments inspector Estimated Blood Loss 30 Findings Consistent with Post-Op Diagnosis significant inflammation on gallbladder, cirrhosis, ascites Fluids 2000ml Specimens gallbladder, partial Drains Catalan Catheter (come with patient from floor) and Kevin-Capone Drain (10 fr round.) Anesthesia Type General Complications none Disposition Accompanied Patient To Recovery: Yes Disposition: Recovery Room Overlapping Procedure I was immediately available: during the entire case.
[2018-09-11] MEDS ORDERED: ROCURONIUM BROMIDE 10 MG/ML 5 ML VIAL ONE (13:31)
--- NOTE | 2018-09-11 14:49 | Anesthesiology Progress Note ---
Date of Service September 11, 2018 Anesthesia Post Procedure Vital Signs Vital Signs: Temp Pulse Pulse Pulse Pulse Resp BP 09/11/18 14:40 79 28 H 09/11/18 14:30 77 27 H 186/74 H 09/11/18 14:25 74 20 175/76 H 09/11/18 14:20 81 24 186/73 H 09/11/18 14:15 83 27 H 198/82 H 09/11/18 14:10 89 28 H 190/74 H 09/11/18 14:05 89 36 H 09/11/18 14:00 91 H 32 H 195/78 H 09/11/18 13:55 90 31 H 185/78 H 09/11/18 13:50 93 H 27 H 192/68 H 09/11/18 13:46 90 29 H 171/68 H 09/11/18 13:45 93 H 33 H 09/11/18 13:40 92 H 18 178/81 H 09/11/18 13:35 90 21 165/65 H 09/11/18 13:30 86 14 159/73 H 09/11/18 13:26 85 25 H 09/11/18 13:25 36.3 C L 79 85 16 152/61 H 09/11/18 10:22 36.6 C 93 H 20 09/11/18 08:35 09/11/18 07:32 36.5 C 82 18 09/11/18 03:25 36.3 C L 75 20 09/11/18 00:00 36.4 C L 70 18 09/10/18 21:11 09/10/18 20:50 36.4 C L 80 18 09/10/18 20:05 75 09/10/18 19:40 36.6 C 77 20 09/10/18 18:28 70 20 09/10/18 18:15 75 16 09/10/18 17:30 36.4 C L 78 18 09/10/18 17:20 36.5 C 69 16 09/10/18 17:10 71 16 09/10/18 17:00 78 16 09/10/18 16:50 71 16 09/10/18 16:43 36.0 C L 77 16 09/10/18 15:19 36.6 C 81 16 BP BP Pulse Ox 09/11/18 14:40 100 09/11/18 14:30 100 02/26/19 14:25 100 09/11/18 14:20 100 09/11/18 14:15 100 09/11/18 14:10 96 09/11/18 14:05 95 09/11/18 14:00 95 09/11/18 13:55 96 09/11/18 13:50 96 09/11/18 13:46 96 09/11/18 13:45 95 09/11/18 13:40 93 09/11/18 13:35 93 09/11/18 13:30 94 09/11/18 13:26 93 09/11/18 13:25 152/61 H 95 09/11/18 10:22 172/92 H 94 09/11/18 08:35 189/76 H 09/11/18 07:32 179/77 H 94 09/11/18 03:25 176/73 H 94 09/11/18 00:00 143/63 H 94 09/10/18 21:11 95 09/10/18 20:50 158/66 H 96 09/10/18 20:05 178/70 H 97 09/10/18 19:40 203/83 H 91 09/10/18 18:28 151/70 H 96 09/10/18 18:15 163/69 H 97 09/10/18 17:30 187/80 H 92 09/10/18 17:20 179/74 H 96 09/10/18 17:10 172/74 H 96 09/10/18 17:00 186/83 H 97 09/10/18 16:50 162/69 H 97 09/10/18 16:43 160/67 H 96 09/10/18 15:19 182/86 H 94 Pain Intensity Abdomen: Pain Intensity: 0 Notes Mental Status: alert / awake / arousable and participated in evaluation Patient Amnestic to Procedure: Yes Nausea / Vomiting: adequately controlled Pain: adequately controlled Airway Patency, RR, SpO2: see Notes below BP & HR: stable & adequate Hydration State: stable & adequate Anesthetic Complications: no major complications apparent Notes: Pt had lap dara under GA without intraoperative problems. Was emerged and extubated and admitted to PACU. After arrival in PACU pt was noted to be awake, mildly confused and c/o dyspnea. RR approx 30/min, with equal shallow breath sounds bilaterally. responds readily to verbal, SaO2 remained 95 - 96% on O2 10 l/ min mask. Placed pt on bipap which he says has relieved his dyspnea. For transfer to PCU. To continue bipap, wean as tolerated.
[2018-09-11] MEDS ORDERED: HydrALAZINE HCL 20 MG/ML VIAL IV STA (16:19)
[2018-09-11] MEDS ORDERED: HydrALAZINE HCL 20 MG/ML VIAL IV PRN (16:19)
--- NOTE | 2018-09-11 16:52 | Surgery Progress Note ---
Date of Service September 11, 2018 POD 3 hours S/P laparoscopic subtotal cholecystectomy, pt developed respiratoty destree after surgery, pt was transfered to PCU, now pt is stable on mask, pt denies significant abdominal pain, I update information to pt's and pt about OR fing and the surgery pt had, Assessment & Plan (1) Choledocholithiasis with acute cholecystitis: D/W hospitalist, continue treatment, repeat labs in am, will F/U Subjective Constitutional: as per Subjective / HPI Ear, Nose, Mouth, Throat: as per Subjective / HPI Respiratory: as per Subjective / HPI Cardiovascular: as per Subjective / HPI Gastrointestinal: as per Subjective / HPI Genitourinary (Male): as per Subjective / HPI Neurologic: as per Subjective / HPI Psychiatric: as per Subjective / HPI Hematologic / Lymphatic: as per Subjective / HPI Physical Exam 2 Vital Signs (Past 24 Hours): Last Vital Signs Temp 36.6 C 09/11/18 16:15 Pulse 79 09/11/18 16:15 Resp 24 09/11/18 16:15 BP 173/76 H 09/11/18 16:15 Pulse Ox 98 09/11/18 16:15 Constitutional: WD/WN, vitals as above Neck: trachea midline, no thyromegaly Respiratory: normal respiratory effort, lungs clear to auscultation Cardiovascular: RRR, no murmur, no edema Gastrointestinal (Abdomen): Percussion/Palpation: abdomen soft ND, all dressing intact Neurologic: awake Psychiatric: Orientation: alert and oriented x 3
[2018-09-11] MEDS: MoRPHine SULFATE 4 MG/ML 1 ML CARP\\VIAL IV PRN ×2 (17:34→21:53)
--- NOTE | 2018-09-11 19:48 | Operative Report ---
DATE OF OPERATION: 09/11/2018 PREOPERATIVE DIAGNOSES: Acute cholecystitis, cholelithiasis. POSTOPERATIVE DIAGNOSES: Acute cholecystitis, cholelithiasis, cirrhosis, ascites. PROCEDURE: Laparoscopic subtotal cholecystectomy. SURGEON: Dr. Nina Diaz. ANESTHESIA: General. ESTIMATED BLOOD LOSS: About 30 mL. FINDINGS: Acute cholecystitis with cholelithiasis, cirrhosis, ascites. COMPLICATIONS: None. INDICATIONS FOR THE PROCEDURE: This is an 83-year-old gentleman who was admitted to hospital for acute cholecystitis with cholelithiasis. The patient had ERCP done yesterday, removed some stones from the common bile duct and we recommended to do the laparoscopic cholecystectomy, possible open, possible cholangiogram. I did talk to the patient and patient's about the benefit and risk, and alternate procedure. I indicated the risks may include but not limited such as bleeding, infection, injury to common bile duct, injury to bowel, may need ERCP, myocardial infarction, DVT, stroke, even and bile leak. The patient and patient's understand. Patient and patient's signed informed consent and I answered all questions. DETAILS OF PROCEDURE: We brought the patient to the OR, put the patient in the supine position. The patient received SCDs on bilateral legs to prevent DVT. Also, the patient received 2 grams Ancef IV for prophylactic antibiotic. The patient received general anesthesia without difficulty. The abdomen was prepped and draped in routine sterile fashion. After time out, I injected the local anesthesia by using 1% lidocaine mixed with 0.5% Marcaine just above the umbilicus. Then I made about a 1.5 cm incision just above umbilicus, opened fascia and opened peritoneum under direct vision, put a Wendi trocar in, connected to CO2 to create pneumoperitoneum. Flow rate was 6 liter per minute. Pressure not more than 14 mmHg. Once we got a nice pneumoperitoneum, we put the camera in, looked around the abdomen, the liver showed cirrhosis with ascites around the liver. The gallbladder had significant inflammation on gallbladder wall. Once all trocars were in, we put a grasper to hold the base of the gallbladder, put direction to the diaphragm, put another grasper hold the pouch of the gallbladder; however, based on the significant cirrhosis to the liver is fixed there and difficult to see the cystic duct and we tried to dissect the triangle of Calot and based on the significant inflammation, edema, it was difficult to see the cystic duct. At this moment, we decided to do the top down technique and take down the gallbladder. We did the subtotal cholecystectomy and used the Endo-BART staple transection near the cystic duct, gallbladder and then we removed the most gallbladder through the catch bag, then we opened the remaining piece of the gallbladder and found couple of small tiny stones and then we flush and made sure no stone was left behind. Then we used the Endoloops to close the remaining gallbladder opening. Rechecked and no bile leak and no active bleeding and based on the significant inflammation on the gallbladder, we decided to put 1 ANGELINE drainage in and use a 3-0 nylon to fix the ANGELINE on the skin. Then we checked the liver bed. No active bleeding and no bile leak and then we removed all the trocars under direct vision. No active bleeding from the trocar sites. The pneumoperitoneum was released and closed the umbilical incision and fascial layer by using #1 Vicryl [id number] x2, closed subcutaneous layer by using 2-0 Vicryl interrupted and closed skin by using 4-0 Vicryl continuous running and closed the epigastric incision by using #1 Vicryl, closed the fascia with [id number] x2, closed subcutaneous layer by using 2-0 Vicryl interrupted and closed the skin by using 4-0 Vicryl interrupted, closed another two 5 mm trocar site skin only by using 4-0 Vicryl. Then we put the dressing on. The patient tolerated the procedure well. All the instrument, needles and sponge counts were correct x2 at the end of case. The patient transferred to recovery room in stable condition. After procedure, I did talk to the patient's and the patient's friend who is a nurse about the OR finding and procedure we did, they understand. I attest to the content of the Intraoperative Record and any orders documented therein. Any exceptions are noted below. JARED
[2018-09-11] MEDS ORDERED: Nursing to Pharmacy Communication ONE (20:55)
[2018-09-11] MEDS ORDERED: SIMVASTATIN 20 MG TAB PO SCH (21:00)
--- NOTE | 2018-09-11 23:11 | Hospitalist Progress Note ---
Date of Service September 11, 2018 Assessment & Plan (1) Choledocholithiasis with acute cholecystitis: diagnosed on CT as well as US, gall bladder wall thickening and cholelithiasis Cipro and Flagyl IV initially, changed to Zosyn for better coverage continue Zosyn IV for now, cover for cholangitis, there was pus in the common bile duct Bili and AST/ALT idris despite antibiotics, WBC up on 09/09 GI consulted, ERCP 09/10 with choledocholithiasis, balloon extraction and stents placed follow up with Dr. Copeland in several weeks for stent removal laparoscopic subtotal cholecystectomy on 09/[address] Diaz there was a great deal of inflammation in the triangle of Chalot, could not ID the cystic duct clearly for this reason a top down disection performed and most of the gall bladder removed closed remaining portion, no bile leak, ANGELINE in place transfer to [facility] over night for close monitoring, could go to surgical floor late morning or afternoon tomorrow as long as he is stable (2) BERTRAM (acute kidney injury): Cr improved to 1.6 from 1.9 likely due to severe infection, possibly ATN that is now improving has been hydrated with NS at 80cc/hr since admission continue to hold Losartan, repeat BMP in the morning change fluids to 1/2NSS + 75mEq of NaHCO3 due to mild metabolic acidosis today, bicarb 20 repeat in the morning (3) 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 Diaz no history of heavy alcohol use will check hepatic panel in the AM can follow up with Janet REYES had some mild ascites this is likely the cause of his abdominal distenstion and peripheral edema as his echo was normal (5) CONOR (obstructive sleep apnea): use BIPAP over night used to use CPAP at home, quit several years ago should have repeat sleep study as outpatient to get a new CPAP (6) Dyspnea: ongoing issue for a few weeks/months scheduled for PFT next week as outpatient, has pleural scarring on CXR, this is chronic finding He may have diaphragmatic limitations due to this large mass echo with preserved EF, no diastolic dysfunction has untreated CONOR which certainly is not helping his breathing during the day (7) Peripheral edema: pitting edema on admission, 1+ likely due to cirrhosis as his echo was normal once he is more fully recovered from surgery and BERTRAM, could consider starting Lasix and Aldactone (8) HTN (hypertension): holding Losartan due to BERTRAM used Norvasc today and can give Hydralazine PRN resume Losartan once BERTRAM resolved (9) Diabetes: holding Glimepiride diabetic diet once he can eat Novolog SS (10) Pleural scarring: chronic issues, seen again today on CXR 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 has a follow up with pulmonology (11) Pulmonary nodules: again, chronic finding, have appeared stable on imaging (12) DVT prophylaxis: Heparin SC Plan: keep on tele over night, repeat labs in the AM advance diet per surgery new diagnosis of cirrhosis, should follow up with GI, check hepatic panel tomorrow AM PT/OT consulted may need rehab, was from home Subjective patient seen in the PACU after surgery, he was requiring BIPAP due to some respiratory distress he was breathing heavy after surgery and immediately have relief with BIPAP oxygen saturations were stable, lungs were clear, no rales or crackles, no wheezing surgery went well, however, patient has cirrhotic morphology to the liver on inspection this is new diagnosis for the patient discussed with his family, no history of alcohol abuse also, discussed his breathing, his says that he is supposed to wear CPAP for CONOR, has not used it in years discussed with patient that this could be cause of his dyspnea that he was complaining about prior to admission reviewed labs, LFT all still elevated after ERCP, no real improvement which is odd WBC down slightly to 14k, Cr improved to 1.68 visited patient again in telemetry, breathing well, taken off BIPAP, stable on 6L via mask discussed with RN, he should wear BIPAP tonight Review of Systems All systems reviewed & are unremarkable except as noted in HPI & below Constitutional: + fatigue and + weakness; no fever Respiratory: + dyspnea and + snoring; no cough, no pain on inspiration and no wheezing Cardiovascular: + edema; no chest pain Gastrointestinal: + abdominal pain (incision sites), + nausea (mild, after surgery) and + constipation Physical Exam 2 Vital Signs (Past 24 Hours): Last Vital Signs Temp 36.3 C L 09/11/18 21:45 Pulse 89 09/11/18 22:26 Resp 28 H 09/11/18 22:26 BP 175/66 H 09/11/18 21:45 Pulse Ox 98 09/11/18 22:26 Constitutional: WD/WN, vitals as above + obese Eyes: PERRL, conjunctivae normal, anicteric sclerae ENMT: external ear and nose normal, oropharynx normal Neck: trachea midline, no thyromegaly Respiratory: normal respiratory effort, lungs clear to auscultation Cardiovascular: Rate/Rhythm: regular rate and regular rhythm Heart Sounds: normal S1 and normal S2; no murmur Vessels: no JVD Extremities: + pedal edema (bilaterally, 1+ pitting) Gastrointestinal (Abdomen): Inspection/Auscultation: + abdomen distended and + hypoactive bowel sounds Percussion/Palpation: + abdomen tender (incision sites, RUQ), abdomen soft and + tympanic to percussion; no guarding Musculoskeletal: no cyanosis or clubbing, extremities motor strength 5/5 Skin: no rashes, warm and dry Neurologic: patellar DTR's 2+ bilat, sensation intact and PERRL, EOMI, accommodation nl, no face palsy, no dysarthria Psychiatric: A+Ox3, euthymic affect Lymphatic: no cervical or axillary lymphadenopathy Results & Data Laboratory Results Laboratory Results - last 24 hr 09/10/18 09/11/18 09/11/18 23:55 05:57 06:41 WBC 14.74 H RBC 4.48 L Hgb 13.8 L Hct 41.2 L MCV 92.0 MCH 30.8 MCHC 33.5 RDW Std Deviation 52.9 H RDW Coeff of Alem 16.1 H Plt Count 285 MPV 9.6 Immature Gran % (Auto) 0.5 Neut % (Auto) 77.9 Lymph % (Auto) 8.6 [place] % (Auto) 12.2 Eos % (Auto) 0.7 Baso % (Auto) 0.1 Immature Gran # (Auto) 0.07 H Neut # (Auto) 11.47 H Lymph # (Auto) 1.27 [place] # (Auto) 1.80 H Eos # (Auto) 0.11 Baso # (Auto) 0.02 Sodium Potassium Chloride Carbon Dioxide Anion Gap BUN Creatinine Est Cr Clr Drug Dosing Est GFR ( Amer) Est GFR (Non-Af Amer) BUN/Creatinine Ratio Glucose POC Glucose 87 72 Calcium Total Bilirubin Direct Bilirubin AST ALT Alkaline Phosphatase Total Protein Albumin 09/11/18 09/11/18 09/11/18 06:41 08:09 13:26 WBC RBC Hgb Hct MCV MCH MCHC RDW Std Deviation RDW Coeff of Alem Plt Count MPV Immature Gran % (Auto) Neut % (Auto) Lymph % (Auto) [place] % (Auto) Eos % (Auto) Baso % (Auto) Immature Gran # (Auto) Neut # (Auto) Lymph # (Auto) [place] # (Auto) Eos # (Auto) Baso # (Auto) Sodium Cancelled 142 Potassium Cancelled 4.0 Chloride Cancelled 112 H Carbon Dioxide Cancelled 20 L Anion Gap Cancelled 10.0 BUN Cancelled 34 H Creatinine Cancelled 1.68 H Est Cr Clr Drug Dosing Cancelled 45.3 Est GFR ( Amer) Cancelled 43.5 Est GFR (Non-Af Amer) Cancelled 37.5 BUN/Creatinine Ratio Cancelled 20.2 H Glucose Cancelled 88 POC Glucose 82 Calcium Cancelled 7.5 L Total Bilirubin Cancelled 4.2 H Direct Bilirubin Cancelled 3.2 H AST Cancelled 604 H ALT Cancelled 339 H Alkaline Phosphatase Cancelled 424 H Total Protein Cancelled 6.0 L Albumin Cancelled 2.1 L 09/11/18 09/11/18 09/11/18 16:35 17:40 20:09 WBC RBC Hgb Hct MCV MCH MCHC RDW Std Deviation RDW Coeff of Alem Plt Count MPV Immature Gran % (Auto) Neut % (Auto) Lymph % (Auto) [place] % (Auto) Eos % (Auto) Baso % (Auto) Immature Gran # (Auto) Neut # (Auto) Lymph # (Auto) [place] # (Auto) Eos # (Auto) Baso # (Auto) Sodium Potassium Chloride Carbon Dioxide Anion Gap BUN Creatinine Est Cr Clr Drug Dosing Est GFR ( Amer) Est GFR (Non-Af Amer) BUN/Creatinine Ratio Glucose POC Glucose 96 98 111 H Calcium Total Bilirubin Direct Bilirubin AST ALT Alkaline Phosphatase Total Protein Albumin Medications Administered Current Inpatient Medications Dextrose (Dextrose 50%) 25 - 50 ml IV UD PRN; Protocol PRN Reason: Hypoglycemia Protocol Stop: 10/08/18 12:56 Last Admin: 09/10/18 12:14 Dose: 25 ml Glucagon (Glucagen) 1 mg IM UD PRN; Protocol PRN Reason: Hypoglycemia Protocol Stop: 10/08/18 12:56 Glucose (Glucose 40%) 15 - 30 gm PO UD PRN; Protocol PRN Reason: Hypoglycemia Protocol Stop: 10/08/18 12:56 Glucose (Dex4 Glucose) 4 - 8 tabs PO UD PRN; Protocol PRN Reason: Hypoglycemia Protocol Stop: 10/08/18 12:56 Heparin Sodium (Porcine) (Heparin Sodium (Porcine)) 5,000 units SQ Q8 SHALA Stop: 10/08/18 13:59 Last Admin: 09/11/18 21:02 Dose: 5,000 units Hydralazine HCl (Hydralazine Hcl) 10 mg IV Q6 PRN PRN Reason: Blood Pressure - High Stop: 10/11/18 16:18 Sodium Bicarbonate 75 meq/ (Sodium Chloride) 1,075 mls @ 125 mls/hr IV .[id number] [facility] Stop: 10/11/18 09:59 Last Admin: 09/11/18 16:56 Dose: 125 mls/hr Insulin Aspart (Novolog Flexpen) 0 units SC ACHS [facility] Stop: 10/11/18 20:59 Last Admin: 09/11/18 21:04 Dose: Not Given Levothyroxine Sodium (Synthroid) 75 mcg PO DAILYBB [facility] Stop: 10/09/18 06:29 Last Admin: 09/11/18 04:35 Dose: Not Given Miscellaneous (Carbohydrates For Hypoglycemia) 15 - 30 gm PO UD PRN PRN Reason: Hypoglycemia Treatment Stop: 10/08/18 12:56 Miscellaneous Information (Consult) 1 ea N/A UD PRN PRN Reason: Consult Stop: 09/11/18 23:59 Morphine Sulfate (Morphine Sulfate) 2 mg IV Q4H PRN PRN Reason: Pain 1-5 Stop: 09/22/18 12:47 Last Admin: 09/11/18 21:53 Dose: 2 mg Ondansetron HCl (Zofran) 4 mg IV Q6H PRN PRN Reason: Nausea Stop: 10/08/18 12:47 Last Admin: 09/11/18 04:23 Dose: 4 mg Polyethylene Glycol (Miralax Powder Packet) 17 gm PO DAILY PRN PRN Reason: Constipation Stop: 10/08/18 12:47 Last Admin: 09/09/18 01:47 Dose: 17 gm Simvastatin (Zocor) 20 mg PO PM SHALA Stop: 10/11/18 20:59 Last Admin: 09/11/18 21:53 Dose: 20 mg _ (1) Dyspnea Dyspnea type: dyspnea on exertion Qualified Code(s): R06.09 - Other forms of dyspnea (2) HTN (hypertension) Hypertension type: essential hypertension Qualified Code(s): I10 - Essential (primary) hypertension (3) Diabetes Diabetes mellitus type: type 2 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
[2018-09-12] MEDS: SODIUM BICARBONATE 8.4% 75 MEQ in SODIUM CHLORIDE 0.45 % 1,000 ML IV SCH ×3 (01:38→18:36)
[2018-09-12] MEDS ORDERED: CEFAZOLIN 2000MG 2,000 MG/15 ML SYR IV SCH (06:00)
[2018-09-12] MEDS: HEPARIN SOD 5,000 UNIT/0.5 ML VIAL SQ SCH ×2 (06:09→15:07)
[2018-09-12] MEDS: LEVOTHYROXINE SODIUM 75 MCG TABLET PO SCH (06:09)
--- NOTE | 2018-09-12 07:35 | Anesthesiology Progress Note ---
Date of Service September 12, 2018 Anesthesia Post Procedure Vital Signs Vital Signs: Temp Pulse Pulse Pulse Resp BP BP 09/12/18 04:00 36.5 C 88 20 165/72 H 09/12/18 01:36 88 158/72 H 09/12/18 00:01 82 09/11/18 23:04 36.6 C 88 22 181/77 H 09/11/18 22:26 89 28 H 09/11/18 21:45 36.3 C L 91 H 20 175/66 H 09/11/18 20:47 36.7 C 87 22 161/66 H 09/11/18 19:45 36.3 C L 82 20 162/67 H 09/11/18 18:47 36.8 C 86 22 167/70 H 09/11/18 18:13 36.7 C 90 20 157/69 H 09/11/18 17:15 36.4 C L 80 21 174/66 H 09/11/18 16:45 36.3 C L 83 22 196/72 H 09/11/18 16:30 36.4 C L 79 22 179/78 H 09/11/18 16:15 36.6 C 79 24 173/76 H 09/11/18 16:00 36.3 C L 84 77 24 194/79 H 09/11/18 15:58 75 09/11/18 15:40 75 19 175/77 H 09/11/18 15:37 36.3 C L 09/11/18 15:35 76 19 177/76 H 09/11/18 15:30 77 33 H 182/78 H 09/11/18 15:25 73 19 175/72 H 09/11/18 15:20 75 27 H 173/84 H 09/11/18 15:15 89 28 H 185/85 H 09/11/18 15:10 78 27 H 181/76 H 09/11/18 15:05 77 26 H 169/74 H 09/11/18 15:00 79 29 H 177/78 H 09/11/18 14:55 76 25 H 172/75 H 09/11/18 14:50 92 H 25 H 183/79 H 09/11/18 14:45 88 32 H 167/74 H 09/11/18 14:40 76 22 181/78 H 09/11/18 14:35 78 27 H 180/84 H 02/26/19 14:30 77 27 H 186/74 H 09/11/18 14:25 74 20 175/76 H 09/11/18 14:20 81 24 186/73 H 09/11/18 14:15 83 27 H 198/82 H 09/11/18 14:10 89 28 H 190/74 H 09/11/18 14:05 89 36 H 09/11/18 14:00 91 H 32 H 195/78 H 09/11/18 13:55 90 31 H 185/78 H 09/11/18 13:50 93 H 27 H 192/68 H 09/11/18 13:46 90 29 H 171/68 H 09/11/18 13:45 93 H 33 H 09/11/18 13:40 92 H 18 178/81 H 09/11/18 13:35 90 21 165/65 H 09/11/18 13:30 86 14 159/73 H 09/11/18 13:26 85 25 H 09/11/18 13:25 36.3 C L 79 85 16 152/61 H 152/61 H 09/11/18 10:22 36.6 C 93 H 20 172/92 H 09/11/18 08:35 189/76 H Pulse Ox 09/12/18 04:00 93 09/12/18 01:36 09/12/18 00:01 09/11/18 23:04 96 09/11/18 22:26 98 09/11/18 21:45 92 09/11/18 20:47 95 09/11/18 19:45 95 09/11/18 18:47 96 09/11/18 18:13 96 09/11/18 17:15 95 09/11/18 16:45 98 09/11/18 16:30 98 09/11/18 16:15 98 09/11/18 16:00 97 09/11/18 15:58 09/11/18 15:40 98 09/11/18 15:37 100 09/11/18 15:35 100 09/11/18 15:30 100 09/11/18 15:25 100 09/11/18 15:20 100 09/11/18 15:15 100 09/11/18 15:10 100 09/11/18 15:05 100 09/11/18 15:00 09/11/18 14:55 09/11/18 14:50 09/11/18 14:45 09/11/18 14:40 09/11/18 14:35 09/11/18 14:30 09/11/18 14:25 09/11/18 14:20 09/11/18 14:15 09/11/18 14:10 96 09/11/18 14:05 95 09/11/18 14:00 95 09/11/18 13:55 96 09/11/18 13:50 96 09/11/18 13:46 96 09/11/18 13:45 95 09/11/18 13:40 93 09/11/18 13:35 93 09/11/18 13:30 94 09/11/18 13:26 93 09/11/18 13:25 95 09/11/18 10:22 94 09/11/18 08:35 Pain Intensity Abdomen: Pain Intensity: 0 Notes Mental Status: alert / awake / arousable and participated in evaluation Nausea / Vomiting: adequately controlled Pain: adequately controlled Airway Patency, RR, SpO2: stable & adequate BP & HR: stable & adequate Hydration State: stable & adequate
[2018-09-12] MEDS ORDERED: PIPERACILL/TAZOBAC CONSULT ACTIVE PRN (07:40)
[2018-09-12] MEDS ORDERED: PIPERACILLIN/TAZOBACTAM 3.375 GM in DEXTROSE 5% 100 ML IV SCH (07:45)
[2018-09-12 07:47] LABS: Partial Thromboplastin Ratio 1.2; Partial Thromboplastin Time 31.9 Seconds (21.0-31.0)
[2018-09-12] MEDS: INSULIN ASPART 100 UNITS/ML 3 ML PEN SC SCH ×3 (07:48→16:21)
[2018-09-12 07:55] LABS: Basophils # (auto) 0.02 K/uL (0-0.2); Basophils % (auto) 0.1 %; Eosinophils # (auto) 0.01 K/uL (0-0.5); Eosinophils % (auto) 0.1 %; Hematocrit (blood only) 43.5 % (42-52); Hemoglobin 14.2 g/dL (14.0-18.0); Immature Granulocytes # (auto) 0.13 K/uL (0.00-0.02); Immature Granulocytes % (auto) 0.7 %; Lymphocytes # (auto) 1.54 K/uL (1.2-3.4); Lymphocytes % (auto) 8.6 %; Mean Corpuscular Hgb Conc 32.6 g/dL (32-36); Mean Corpuscular Volume 93.1 fL (80-100); Mean Platelet Volume 9.9 fL (7.4-10.4); Monocytes # (auto) 2.12 K/uL (0.11-0.59); Monocytes % (auto) 11.8 %; Neutrophils # (auto) 14.09 K/uL (1.4-6.5); Neutrophils % (auto) 78.7 %; Nucleated RBC # (auto) 0.06 K/uL (0-0); Nucleated RBC % (auto) 0.3 %; Platelet Count 379 K/uL (130-400); RDW Coefficient of Variation 16.9 % (11.5-14.5); RDW Standard Deviation 55.5 fL (36.4-46.3); Red Blood Count 4.67 M/uL (4.7-6.1); White Blood Count 17.91 K/uL (4.8-10.8)
[2018-09-12 08:06] LABS: Albumin Level 2.2 gm/dl (3.4-5.0); BUN Creatinine Ratio 22.1 (10-20); Calcium 7.7 mg/dl (8.5-10.1); Creatinine Clr Calc Pharmacy 34.6 ml/min; Est GFR (African American) 30.6; Est GFR (Non-African American) 26.4; Potassium 4.6 mmol/L (3.5-5.1)
[2018-09-12 08:24] LABS: Albumin Globulin Ratio 0.5 (0.9-2); Bilirubin,Total 3.5 mg/dl (0.2-1); Globulin 4.2 gm/dl (2.5-4.0); Total Protein 6.4 gm/dl (6.4-8.2)
[2018-09-12] MEDS ORDERED: PIPERACILLIN/TAZOBACTAM 4.5 GM in DEXTROSE 5% 100 ML IV ONE (08:30)
[2018-09-12 08:38] LABS: Hepatitis B Surface Antibody Non-Immune
[2018-09-12 08:48] LABS: Hepatitis B Surface Antigen Neg (Neg)
[2018-09-12] MEDS ORDERED: GLIMEPIRIDE 2 MG TAB PO SCH (09:00)
[2018-09-12 09:17] LABS: Hepatitis C IgG 13Yrs+Old_Rflx Neg (Neg)
[2018-09-12] MEDS ORDERED: MoRPHine SULFATE 4 MG/ML 1 ML CARP\\VIAL ONE (09:47)
[2018-09-12] MEDS: MoRPHine SULFATE 4 MG/ML 1 ML CARP\\VIAL IV PRN ×3 (09:48→17:29)
--- NOTE | 2018-09-12 11:01 | Surgery Progress Note ---
Date of Service September 12, 2018 Assessment & Plan (1) Choledocholithiasis with acute cholecystitis: POD # 1 s/p laparoscopic subtotal cholecystectomy POD # 2 s/p ERCP with biliary and pancreatic stent placement for choledocholithiasis and cholangitis. -afebrile - leukocytosis increased to 17K (14K yesterday) - Hypertensive - increase in creatinine 1.68 --> 2.25 - T. bili mildly improved to 3.5 (4.2) - LFTS increased significantly, ?? Hepatitis - AST 5208 - ALT 1323 - ALK 626 Plan: Recommend GI consult given significantly elevated LFTs. Recommend possible nephrology consult given increase in creatinine and dark urinary output. Discussed patient with Dr. Vargas this morning he will evaluate given acute changes in labs. Continue IV Zosyn for cholangitis/ s/p dara Continue kate drain to bulb suction Continue Catalan to gravity to monitor urinary output Continue clear liquids for now, advised patient to go slow OOB to chair and ambulate if possible given abdominal distention to increase GI motility PT/OT consults Continue SCDs and Heparin SQ for DVT prophylaxis Continue Incentive spirometry repeat am labs Dr. Diaz has seen and examined pt, agrees with above Subjective not feeling great this morning having some abdominal tenderness at incisions breathing has not been as great, does not require oxygen at home has not passed flatus or bowel movement + belching Physical Exam Vital Signs (Past 24 Hours): Last Vital Signs Temp 36.3 C L 09/12/18 08:00 Pulse 92 H 09/12/18 08:00 Resp 20 09/12/18 08:00 BP 135/66 09/12/18 08:00 Pulse Ox 93 09/12/18 08:00 Constitutional: WD/WN, vitals as above + morbidly obese; no acute distress and not ill appearing Respiratory: no respiratory distress and does not use accessory muscles Gastrointestinal (Abdomen): Inspection/Auscultation: + abdomen distended and + abdominal surgical incision (covered with dressings) Percussion/Palpation: + abdomen tender (at incision sites) and + abdomen firm (given distention); no guarding and abdomen not rigid Skin: no rashes, warm and dry Psychiatric: A+Ox3, euthymic affect Results & Data Laboratory Results 09/12/18 09/12/18 09/12/18 Range/Units 07:19 07:19 07:19 WBC 17.91 H (4.8-10.8) K/uL RBC 4.67 L (4.7-6.1) M/uL Hgb 14.2 (14.0-18.0) g/dL Hct 43.5 (42-52) % MCV 93.1 (80-100) fL MCH 30.4 (25-34) pg MCHC 32.6 (32-36) g/dL RDW Std Deviation 55.5 H (36.4-46.3) fL RDW Coeff of Alem 16.9 H (11.5-14.5) % Plt Count 379 (130-400) K/uL MPV 9.9 (7.4-10.4) fL Immature Gran % (Auto) 0.7 % Neut % (Auto) 78.7 % Lymph % (Auto) 8.6 % [place] % (Auto) 11.8 % Eos % (Auto) 0.1 % Baso % (Auto) 0.1 % Immature Gran # (Auto) 0.13 H (0.00-0.02) K/uL Neut # (Auto) 14.09 H (1.4-6.5) K/uL Lymph # (Auto) 1.54 (1.2-3.4) K/uL [place] # (Auto) 2.12 H (0.11-0.59) K/uL Eos # (Auto) 0.01 (0-0.5) K/uL Baso # (Auto) 0.02 (0-0.2) K/uL Absolute Nucleated RBC 0.06 H (0-0) K/uL Nucleated RBC % (auto) 0.3 % APTT (21.0-31.0) Seconds PTT Ratio Sodium 142 (136-145) mmol/L Potassium 4.6 (3.5-5.1) mmol/L Chloride 110 H (98-107) mmol/L Carbon Dioxide 20 L (21-32) mmol/L Anion Gap 12.0 H (3-11) BUN 50 H (7-18) mg/dl Creatinine 2.25 H D (0.6-1.4) mg/dl Est Cr Clr Drug Dosing 34.6 ml/min Est GFR ( Amer) 30.6 Est GFR (Non-Af Amer) 26.4 BUN/Creatinine Ratio 22.1 H (10-20) Glucose 91 (70-99) mg/dl POC Glucose (70-99) Calcium 7.7 L (8.5-10.1) mg/dl Total Bilirubin 3.5 H (0.2-1) mg/dl AST 5208 H (15-37) U/L ALT 1323 H (12-78) U/L Alkaline Phosphatase 626 H (45-117) U/L Total Protein 6.4 (6.4-8.2) gm/dl Albumin 2.2 L (3.4-5.0) gm/dl Globulin 4.2 H (2.5-4.0) gm/dl Albumin/Globulin Ratio 0.5 L (0.9-2) Hep Bs Antigen Neg (Neg) Hep Bs Antibody Non-Immune Hep Bs Antibody, Quant < 3.10 L (>or=10mIU/mL Immune) mIU/mL Hepatitis C Antibody Neg (Neg) 09/12/18 09/12/18 09/11/18 Range/Units 07:19 07:13 20:09 WBC (4.8-10.8) K/uL RBC (4.7-6.1) M/uL Hgb (14.0-18.0) g/dL Hct (42-52) % MCV (80-100) fL MCH (25-34) pg MCHC (32-36) g/dL RDW Std Deviation (36.4-46.3) fL RDW Coeff of Alem (11.5-14.5) % Plt Count (130-400) K/uL MPV (7.4-10.4) fL Immature Gran % (Auto) % Neut % (Auto) % Lymph % (Auto) % [place] % (Auto) % Eos % (Auto) % Baso % (Auto) % Immature Gran # (Auto) (0.00-0.02) K/uL Neut # (Auto) (1.4-6.5) K/uL Lymph # (Auto) (1.2-3.4) K/uL [place] # (Auto) (0.11-0.59) K/uL Eos # (Auto) (0-0.5) K/uL Baso # (Auto) (0-0.2) K/uL Absolute Nucleated RBC (0-0) K/uL Nucleated RBC % (auto) % APTT 31.9 H (21.0-31.0) Seconds PTT Ratio 1.2 Sodium (136-145) mmol/L Potassium (3.5-5.1) mmol/L Chloride (98-107) mmol/L Carbon Dioxide (21-32) mmol/L Anion Gap (3-11) BUN (7-18) mg/dl Creatinine (0.6-1.4) mg/dl Est Cr Clr Drug Dosing ml/min Est GFR ( Amer) Est GFR (Non-Af Amer) BUN/Creatinine Ratio (10-20) Glucose (70-99) mg/dl POC Glucose 94 111 H (70-99) Calcium (8.5-10.1) mg/dl Total Bilirubin (0.2-1) mg/dl AST (15-37) U/L ALT (12-78) U/L Alkaline Phosphatase (45-117) U/L Total Protein (6.4-8.2) gm/dl Albumin (3.4-5.0) gm/dl Globulin (2.5-4.0) gm/dl Albumin/Globulin Ratio (0.9-2) Hep Bs Antigen (Neg) Hep Bs Antibody Hep Bs Antibody, Quant (>or=10mIU/mL Immune) mIU/mL Hepatitis C Antibody (Neg) 09/11/18 09/11/18 09/11/18 Range/Units 17:40 16:35 13:26 WBC (4.8-10.8) K/uL RBC (4.7-6.1) M/uL Hgb (14.0-18.0) g/dL Hct (42-52) % MCV (80-100) fL MCH (25-34) pg MCHC (32-36) g/dL RDW Std Deviation (36.4-46.3) fL RDW Coeff of Alem (11.5-14.5) % Plt Count (130-400) K/uL MPV (7.4-10.4) fL Immature Gran % (Auto) % Neut % (Auto) % Lymph % (Auto) % [place] % (Auto) % Eos % (Auto) % Baso % (Auto) % Immature Gran # (Auto) (0.00-0.02) K/uL Neut # (Auto) (1.4-6.5) K/uL Lymph # (Auto) (1.2-3.4) K/uL [place] # (Auto) (0.11-0.59) K/uL Eos # (Auto) (0-0.5) K/uL Baso # (Auto) (0-0.2) K/uL Absolute Nucleated RBC (0-0) K/uL Nucleated RBC % (auto) % APTT (21.0-31.0) Seconds PTT Ratio Sodium (136-145) mmol/L Potassium (3.5-5.1) mmol/L Chloride (98-107) mmol/L Carbon Dioxide (21-32) mmol/L Anion Gap (3-11) BUN (7-18) mg/dl Creatinine (0.6-1.4) mg/dl Est Cr Clr Drug Dosing ml/min Est GFR ( Amer) Est GFR (Non-Af Amer) BUN/Creatinine Ratio (10-20) Glucose (70-99) mg/dl POC Glucose 98 96 82 (70-99) Calcium (8.5-10.1) mg/dl Total Bilirubin (0.2-1) mg/dl AST (15-37) U/L ALT (12-78) U/L Alkaline Phosphatase (45-117) U/L Total Protein (6.4-8.2) gm/dl Albumin (3.4-5.0) gm/dl Globulin (2.5-4.0) gm/dl Albumin/Globulin Ratio (0.9-2) Hep Bs Antigen (Neg) Hep Bs Antibody Hep Bs Antibody, Quant (>or=10mIU/mL Immune) mIU/mL Hepatitis C Antibody (Neg)
[2018-09-12] MEDS: ONDANSETRON INJ 2 MG/ML 2 ML VIAL IV PRN (13:56)
[2018-09-12] MEDS ORDERED: PIPERACILLIN/TAZOBACTAM 4.5 GM in DEXTROSE 5% 100 ML IV SCH (14:00)
--- NOTE | 2018-09-12 14:53 | Gastroenterology Progress Note ---
Date of Service September 12, 2018 Assessment & Plan (1) Choledocholithiasis with acute cholecystitis: (2) Elevated liver enzymes: Pt is a 83 y/o male s/p ERCP on 09/10 for choledocholithiasis removal and biliary, pancreatic stent placements, s/p subtotal cholecystectomy on 09/11. GI reconsulted for marked LFT elevation today. Liver on imaging studies appear steatotic but per op report during cholecystectomy it's noted liver is cirrhotic. Wonder if he has perfusion injury to his liver but no signs of hypotension or large volume blood loss during his surgery. - CT abd/pelvis w/o contrast ordered by Surgery - Was going to obtain CT chest to r/o PE given his tachypnea and SOB but given h is renal function cannot give IV contrast agent. Thus we opted to obtain EKG, Troponin, repeat PT/INR, bilateral LE dopplers to r/o DVT, and hepatic dopplers. - Hold statin med, avoid hepatotoxic meds. - Will follow closely Supervising Physician Co-Signing Physician Notes I have seen and examined the patient with ALBARO Schroeder. 83 yo male with a history of adela, rp mass on the right side, admitted for cholecystitis. S/p pre-operative ERPC with removal of stones, cbd stent, pd stent placed on 09/10/18. S/p lap dara on 09/11/18 with reported findings of cirrhosis with perihepatic ascites- this was not seen on pre-operative imaging. Appears he became short of breath post cholecystectomy and GI now called back on 09/12 for elevated lft's (primarily hepatocellular pattern). This appears to be an acute rise in ast/alt from 09/11 to 09/12/18. On review of his operative records, no reported low blood pressures, his lft's and his kidney function have increased. Surgery has already ordered a non-contrast CT A/P. Per review of his lft's, they appear as if there was an ischemic hit to the liver leading to this acute rise, repeat INR pending. Ideally, ensuring adequate perfusion to his liver is important - would check abd savage with doppler- hv/pv to ensure these are patent. EKG to ensure nothing his heart is okay given increased shortness of breath, if any abnormality - would consider repeating echo. He did have a pre-operative echo. Agree with further plan of case as per Amparo's assessment and plan. Subjective Pt s/p ERCP 09/10/18 for choledocholithiasis removal and biliary, pancreatic stent placement; lap cholecystectomy 09/11/18. GI reconsulted for elevated LFTs: Tbili 3/5, AST 5208, ALT 1323, AP 626. There were siginficantly worse than yesterday. Pt admits to have SOB, currently on O2 3L NC. Deneis any CP. He is having RUQ abd pain but said it's been present since his surgery. ANGELINE drain in place w serosangenous fluid. He hasn't passes flatus or BM since surgery. Physical Exam Vital Signs (Past 24 Hours): Last Vital Signs Temp 36.3 C L 09/12/18 11:18 Pulse 92 H 09/12/18 11:18 Resp 18 09/12/18 11:18 BP 181/75 H 09/12/18 11:18 Pulse Ox 94 09/12/18 11:18 Constitutional: + ill appearing, well groomed and cooperative Eyes: PERRL, conjunctivae normal, anicteric sclerae ENMT: external ear and nose normal, oropharynx normal Respiratory: + respiratory distress and + tachypneic Auscultation: + diminished lung sounds Cardiovascular: RRR, no murmur, no edema Gastrointestinal (Abdomen): Inspection/Auscultation: + abdomen distended and + hypoactive bowel sounds Percussion/Palpation: + abdomen tender (RUQ ) Skin: no rashes, warm and dry no jaundice Neurologic: Motor/Sensory: no asterixis Psychiatric: A+Ox3, euthymic affect Lymphatic: no lymphedema Results & Data Laboratory Results Laboratory Results - last 72 hr 09/09/18 09/09/18 09/10/18 17:12 20:42 05:35 WBC RBC Hgb Hct MCV MCH MCHC RDW Std Deviation RDW Coeff of Alem Plt Count MPV Immature Gran % (Auto) Neut % (Auto) Lymph % (Auto) [place] % (Auto) Eos % (Auto) Baso % (Auto) Immature Gran # (Auto) Neut # (Auto) Lymph # (Auto) [place] # (Auto) Eos # (Auto) Baso # (Auto) Absolute Nucleated RBC Nucleated RBC % (auto) APTT PTT Ratio Sodium Potassium Chloride Carbon Dioxide Anion Gap BUN Creatinine Est Cr Clr Drug Dosing Est GFR ( Amer) Est GFR (Non-Af Amer) BUN/Creatinine Ratio Glucose POC Glucose 122 H 95 78 Calcium Total Bilirubin Direct Bilirubin AST ALT Alkaline Phosphatase Total Protein Albumin Globulin Albumin/Globulin Ratio Hep Bs Antigen Hep Bs Antibody Hep Bs Antibody, Quant Hepatitis C Antibody 09/10/18 09/10/18 09/10/18 06:09 06:09 08:18 WBC 15.22 H RBC 4.47 L Hgb 13.6 L Hct 40.7 L MCV 91.1 MCH 30.4 MCHC 33.4 RDW Std Deviation 51.4 H RDW Coeff of Alem 15.6 H Plt Count 268 MPV 10.0 Immature Gran % (Auto) 0.4 Neut % (Auto) 72.0 Lymph % (Auto) 12.2 [place] % (Auto) 15.0 Eos % (Auto) 0.3 Baso % (Auto) 0.1 Immature Gran # (Auto) 0.06 H Neut # (Auto) 10.96 H Lymph # (Auto) 1.86 [place] # (Auto) 2.28 H Eos # (Auto) 0.04 Baso # (Auto) 0.02 Absolute Nucleated RBC Nucleated RBC % (auto) APTT PTT Ratio Sodium 142 Potassium 4.2 Chloride 109 H Carbon Dioxide 23 Anion Gap 9.0 BUN 30 H Creatinine 1.94 H D Est Cr Clr Drug Dosing 39.2 Est GFR ( Amer) 36.6 Est GFR (Non-Af Amer) 31.5 BUN/Creatinine Ratio 15.3 Glucose 80 POC Glucose 77 Calcium 7.7 L Total Bilirubin 4.3 H Direct Bilirubin 3.3 H AST 467 H ALT 335 H Alkaline Phosphatase 478 H Total Protein 6.2 L Albumin 2.4 L Globulin Albumin/Globulin Ratio Hep Bs Antigen Hep Bs Antibody Hep Bs Antibody, Quant Hepatitis C Antibody 09/10/18 09/10/18 09/10/18 12:06 12:29 15:18 WBC RBC Hgb Hct MCV MCH MCHC RDW Std Deviation RDW Coeff of Alem Plt Count MPV Immature Gran % (Auto) Neut % (Auto) Lymph % (Auto) [place] % (Auto) Eos % (Auto) Baso % (Auto) Immature Gran # (Auto) Neut # (Auto) Lymph # (Auto) [place] # (Auto) Eos # (Auto) Baso # (Auto) Absolute Nucleated RBC Nucleated RBC % (auto) APTT PTT Ratio Sodium Potassium Chloride Carbon Dioxide Anion Gap BUN Creatinine Est Cr Clr Drug Dosing Est GFR ( Amer) Est GFR (Non-Af Amer) BUN/Creatinine Ratio Glucose POC Glucose 69 L* 116 H 72 Calcium Total Bilirubin Direct Bilirubin AST ALT Alkaline Phosphatase Total Protein Albumin Globulin Albumin/Globulin Ratio Hep Bs Antigen Hep Bs Antibody Hep Bs Antibody, Quant Hepatitis C Antibody 09/10/18 09/10/18 09/10/18 16:53 18:14 23:55 WBC RBC Hgb Hct MCV MCH MCHC RDW Std Deviation RDW Coeff of Alem Plt Count MPV Immature Gran % (Auto) Neut % (Auto) Lymph % (Auto) [place] % (Auto) Eos % (Auto) Baso % (Auto) Immature Gran # (Auto) Neut # (Auto) Lymph # (Auto) [place] # (Auto) Eos # (Auto) Baso # (Auto) Absolute Nucleated RBC Nucleated RBC % (auto) APTT PTT Ratio Sodium Potassium Chloride Carbon Dioxide Anion Gap BUN Creatinine Est Cr Clr Drug Dosing Est GFR ( Amer) Est GFR (Non-Af Amer) BUN/Creatinine Ratio Glucose POC Glucose 72 85 87 Calcium Total Bilirubin Direct Bilirubin AST ALT Alkaline Phosphatase Total Protein Albumin Globulin Albumin/Globulin Ratio Hep Bs Antigen Hep Bs Antibody Hep Bs Antibody, Quant Hepatitis C Antibody 09/11/18 09/11/18 09/11/18 05:57 06:41 06:41 WBC 14.74 H RBC 4.48 L Hgb 13.8 L Hct 41.2 L MCV 92.0 MCH 30.8 MCHC 33.5 RDW Std Deviation 52.9 H RDW Coeff of Alem 16.1 H Plt Count 285 MPV 9.6 Immature Gran % (Auto) 0.5 Neut % (Auto) 77.9 Lymph % (Auto) 8.6 [place] % (Auto) 12.2 Eos % (Auto) 0.7 Baso % (Auto) 0.1 Immature Gran # (Auto) 0.07 H Neut # (Auto) 11.47 H Lymph # (Auto) 1.27 [place] # (Auto) 1.80 H Eos # (Auto) 0.11 Baso # (Auto) 0.02 Absolute Nucleated RBC Nucleated RBC % (auto) APTT PTT Ratio Sodium Cancelled Potassium Cancelled Chloride Cancelled Carbon Dioxide Cancelled Anion Gap Cancelled BUN Cancelled Creatinine Cancelled Est Cr Clr Drug Dosing Cancelled Est GFR ( Amer) Cancelled Est GFR (Non-Af Amer) Cancelled BUN/Creatinine Ratio Cancelled Glucose Cancelled POC Glucose 72 Calcium Cancelled Total Bilirubin Cancelled Direct Bilirubin Cancelled AST Cancelled ALT Cancelled Alkaline Phosphatase Cancelled Total Protein Cancelled Albumin Cancelled Globulin Albumin/Globulin Ratio Hep Bs Antigen Hep Bs Antibody Hep Bs Antibody, Quant Hepatitis C Antibody 09/11/18 09/11/18 09/11/18 08:09 13:26 16:35 WBC RBC Hgb Hct MCV MCH MCHC RDW Std Deviation RDW Coeff of Alem Plt Count MPV Immature Gran % (Auto) Neut % (Auto) Lymph % (Auto) [place] % (Auto) Eos % (Auto) Baso % (Auto) Immature Gran # (Auto) Neut # (Auto) Lymph # (Auto) [place] # (Auto) Eos # (Auto) Baso # (Auto) Absolute Nucleated RBC Nucleated RBC % (auto) APTT PTT Ratio Sodium 142 Potassium 4.0 Chloride 112 H Carbon Dioxide 20 L Anion Gap 10.0 BUN 34 H Creatinine 1.68 H Est Cr Clr Drug Dosing 45.3 Est GFR ( Amer) 43.5 Est GFR (Non-Af Amer) 37.5 BUN/Creatinine Ratio 20.2 H Glucose 88 POC Glucose 82 96 Calcium 7.5 L Total Bilirubin 4.2 H Direct Bilirubin 3.2 H AST 604 H ALT 339 H Alkaline Phosphatase 424 H Total Protein 6.0 L Albumin 2.1 L Globulin Albumin/Globulin Ratio Hep Bs Antigen Hep Bs Antibody Hep Bs Antibody, Quant Hepatitis C Antibody 09/11/18 09/11/18 09/12/18 17:40 20:09 07:13 WBC RBC Hgb Hct MCV MCH MCHC RDW Std Deviation RDW Coeff of Alem Plt Count MPV Immature Gran % (Auto) Neut % (Auto) Lymph % (Auto) [place] % (Auto) Eos % (Auto) Baso % (Auto) Immature Gran # (Auto) Neut # (Auto) Lymph # (Auto) [place] # (Auto) Eos # (Auto) Baso # (Auto) Absolute Nucleated RBC Nucleated RBC % (auto) APTT PTT Ratio Sodium Potassium Chloride Carbon Dioxide Anion Gap BUN Creatinine Est Cr Clr Drug Dosing Est GFR ( Amer) Est GFR (Non-Af Amer) BUN/Creatinine Ratio Glucose POC Glucose 98 111 H 94 Calcium Total Bilirubin Direct Bilirubin AST ALT Alkaline Phosphatase Total Protein Albumin Globulin Albumin/Globulin Ratio Hep Bs Antigen Hep Bs Antibody Hep Bs Antibody, Quant Hepatitis C Antibody 09/12/18 09/12/18 09/12/18 07:19 07:19 07:19 WBC RBC Hgb Hct MCV MCH MCHC RDW Std Deviation RDW Coeff of Alem Plt Count MPV Immature Gran % (Auto) Neut % (Auto) Lymph % (Auto) [place] % (Auto) Eos % (Auto) Baso % (Auto) Immature Gran # (Auto) Neut # (Auto) Lymph # (Auto) [place] # (Auto) Eos # (Auto) Baso # (Auto) Absolute Nucleated RBC Nucleated RBC % (auto) APTT 31.9 H PTT Ratio 1.2 Sodium 142 Potassium 4.6 Chloride 110 H Carbon Dioxide 20 L Anion Gap 12.0 H BUN 50 H Creatinine 2.25 H D Est Cr Clr Drug Dosing 34.6 Est GFR ( Amer) 30.6 Est GFR (Non-Af Amer) 26.4 BUN/Creatinine Ratio 22.1 H Glucose 91 POC Glucose Calcium 7.7 L Total Bilirubin 3.5 H Direct Bilirubin AST 5208 H ALT 1323 H Alkaline Phosphatase 626 H Total Protein 6.4 Albumin 2.2 L Globulin 4.2 H Albumin/Globulin Ratio 0.5 L Hep Bs Antigen Neg Hep Bs Antibody Non-Immune Hep Bs Antibody, Quant < 3.10 L Hepatitis C Antibody Neg 09/12/18 09/12/18 07:19 10:47 WBC 17.91 H RBC 4.67 L Hgb 14.2 Hct 43.5 MCV 93.1 MCH 30.4 MCHC 32.6 RDW Std Deviation 55.5 H RDW Coeff of Alem 16.9 H Plt Count 379 MPV 9.9 Immature Gran % (Auto) 0.7 Neut % (Auto) 78.7 Lymph % (Auto) 8.6 [place] % (Auto) 11.8 Eos % (Auto) 0.1 Baso % (Auto) 0.1 Immature Gran # (Auto) 0.13 H Neut # (Auto) 14.09 H Lymph # (Auto) 1.54 [place] # (Auto) 2.12 H Eos # (Auto) 0.01 Baso # (Auto) 0.02 Absolute Nucleated RBC 0.06 H Nucleated RBC % (auto) 0.3 APTT PTT Ratio Sodium Potassium Chloride Carbon Dioxide Anion Gap BUN Creatinine Est Cr Clr Drug Dosing Est GFR ( Amer) Est GFR (Non-Af Amer) BUN/Creatinine Ratio Glucose POC Glucose 113 H Calcium Total Bilirubin Direct Bilirubin AST ALT Alkaline Phosphatase Total Protein Albumin Globulin Albumin/Globulin Ratio Hep Bs Antigen Hep Bs Antibody Hep Bs Antibody, Quant Hepatitis C Antibody
--- NOTE | 2018-09-12 15:05 | CT Scan Report ---
CT SCAN OF THE ABDOMEN AND PELVIS WITHOUT CONTRAST CLINICAL HISTORY: Increasing abdominal distention. Postop day 1 from laparoscopic cholecystectomy. COMPARISON STUDY: September 08, 2018 TECHNIQUE: CT scan of the abdomen and pelvis was performed from the lung bases to the proximal femurs . Images are reviewed in the axial, sagittal, and coronal planes. IV contrast was not administered fo r this examination. A dose lowering technique was utilized adhering to the principles of ALARA. CT DOSE: 1170.67 mGycm FINDINGS: Lower chest: There are pleurodiaphragmatic calcifications present. There are basilar airspace opaciti es, statistically atelectatic. There are trace pleural effusions. Liver: The unenhanced liver is normal in size, contour, and attenuation. There is no intrahepatic karissa iary ductal dilatation. Gallbladder: Surgically absent. There is minimal stranding within the gallbladder bed consistent with prior surgery. There is a small amount of contrast in the gallbladder bed, likely secondary to the i ntraoperative cholangiogram. There is an indwelling biliary enteric stent. Spleen: Normal in size and attenuation. Pancreas: Unremarkable. Adrenal glands: Unremarkable. Kidneys: The unenhanced kidneys are normal in size without hydronephrosis. There is no contour deform ing renal mass lesion. No renal calculi are identified. Bowel: The bowel is displaced from the right abdomen to the left secondary to a large fat-containing retroperitoneal mass. Diagnostic considerations include a lipoma or liposarcoma. The findings remain similar to the preceding study. The mass measures 25 cm. There are no transition zones indicate bowel obstruction. There are scattered air-fluid levels within both small and large bowel loops suggestive a mild postsurgical ileus. Peritoneum: There is no significant ascites. There is no free intraperitoneal air. There is a right u pper quadrant peritoneal drain. Vasculature: The abdominal aorta is normal in course and caliber. Adenopathy: None. Pelvic viscera: There is a Catalan catheter with its balloon inflated within the prostatic urethra. Skeletal structures: No destructive osseous lesions are seen. IMPRESSION: 1. Postsurgical changes of a recent laparoscopic cholecystectomy with placement of a biliary enteric stent. There is trace fluid and contrast within the cholecystectomy bed consistent with the history o f recent surgery. 2. No evidence of bowel obstruction. No evidence of free air. A minimal ileus is suspected. 3. No change in the large 25 cm right-sided retroperitoneal mass. This is of predominantly fatty atte nuation, with diagnostic considerations to include a lipoma, or low-grade liposarcoma. 4. Persistent pleurodiaphragmatic calcifications. Trace pleural effusions with basilar opacities like ly atelectatic. 5. Catalan catheter. The Catalan catheter balloon is positioned within the prostatic urethra Electronically signed by: Kyaw Samayoa M.D. 09/12/2018 3:03 PM
[2018-09-12] MEDS ORDERED: METHYLNALTREXONE BROMIDE 12 MG/0.6 ML VIAL SQ ONE (15:12)
[2018-09-12 15:32] LABS: INR 1.7 (0.9-1.1); Prothrombin Time 16.7 Seconds (9.0-12.0)
--- NOTE | 2018-09-12 15:54 | Ultrasound Report ---
US venous doppler LE BI CLINICAL HISTORY: Leg swelling COMPARISON STUDY: No previous studies for comparison. FINDINGS: Real-time and color flow Doppler imaging were performed. Flow was seen within the femoral, popliteal and calf veins with no intraluminal thrombus demonstrated. The saphenous vein is patent. IMPRESSION: No evidence of lower extremity DVT. Electronically signed by: Kyaw Samayoa M.D. 09/12/2018 3:52 PM
--- NOTE | 2018-09-12 16:01 | Ultrasound Report ---
US duplex portal hepatic veins CLINICAL HISTORY: 83 years-old Male presenting with elevated lft. TECHNIQUE: Real-time grayscale and color and spectral Doppler ultrasound imaging of the liver was per formed. COMPARISON: Noncontrast CT from earlier today as well as MRCP from 07/08/2019. FINDINGS: Limited evaluation due to patient body habitus and poor breath-holding. Liver: Hyperechogenic parenchyma with heterogeneous echotexture, likely indicating fibrosis or steato sis. Vasculature: Portal veins: Main portal vein possibly identified. This region demonstrates intermittent flow. Paten cy cannot be confirmed. Hepatic arteries: Not identified. Hepatic veins: Not identified. Splenic vein: Not interrogated. IVC: Not interrogated. Biliary: Unable to identified. Gallbladder: Surgically absent. Ascites: None. Other: None. IMPRESSION: Extremely limited evaluation due to patient body habitus and poor breath-holding. The portal vein can not be confirmed as patent. If there is continuing clinical concern, contrast-enhanced CT is recommen ded. If the patient cannot receive contrast, noncontrast MRA could be considered versus a re-attempt at Doppler ultrasound. Electronically signed by: Gomez De La Cruz M.D. 09/12/2018 3:59 PM
--- NOTE | 2018-09-12 16:33 | Surgery Progress Note ---
Date of Service September 12, 2018 I got a call from nurse, pt's abdominal is distend, pt was examed, CT scan abd + pelvis done th afternoon, IMPRESSION: 1. Postsurgical changes of a recent laparoscopic cholecystectomy with placement of a biliary enteric stent. There is trace fluid and contrast within the cholecystectomy bed consistent with the history of recent surgery. 2. No evidence of bowel obstruction. No evidence of free air. A minimal ileus is suspected. 3. No change in the large 25 cm right-sided retroperitoneal mass. This is of predominantly fatty attenuation, with diagnostic considerations to include a lipoma, or low-grade liposarcoma. 4. Persistent pleurodiaphragmatic calcifications. Trace pleural effusions with basilar opacities likely atelectatic. 5. Catalan catheter. The Catalan catheter balloon is positioned within the prostatic urethra U/S study-retroperitoneal mass compress portal vein, Assessment & Plan (1) Choledocholithiasis with acute cholecystitis: S/P laparoscopic subtotal cholecystectomy, POD 1, S/P ERCP pod 2 large retroperitoneal mass I update information to pt and his family members, pt's and his son daughter want to transfer pt to higher level care, D/W hospitalist who agrees with transfer, for remove retroperitoneal mass to release compression, D/W benefits, risks and alternatives of the transfer, pt and his family members understood, they agree with the transfer. I answered all questions, Subjective not feeling great this morning having some abdominal tenderness at incisions breathing has not been as great, does not require oxygen at home has not passed flatus or bowel movement + belching Constitutional: as per Subjective / HPI Ear, Nose, Mouth, Throat: as per Subjective / HPI Respiratory: as per Subjective / HPI Cardiovascular: as per Subjective / HPI Gastrointestinal: as per Subjective / HPI Genitourinary (Male): as per Subjective / HPI Neurologic: as per Subjective / HPI Psychiatric: as per Subjective / HPI Hematologic / Lymphatic: as per Subjective / HPI Physical Exam Vital Signs (Past 24 Hours): Last Vital Signs Temp 36.7 C 09/12/18 16:10 Pulse 102 H 09/12/18 16:10 Resp 21 09/12/18 16:10 BP 136/61 09/12/18 16:10 Pulse Ox 95 09/12/18 16:10 Constitutional: WD/WN, vitals as above Neck: trachea midline, no thyromegaly Respiratory: normal respiratory effort, lungs clear to auscultation normal respiratory effort Cardiovascular: RRR, no murmur, no edema Gastrointestinal (Abdomen): Percussion/Palpation: abdomen soft some distend, no tenderness, ANGELINE minimal, clear fluid Neurologic: awake Psychiatric: Orientation: alert and oriented x 3 Results & Data Laboratory Results Abnormal lab results 09/11/18 09/12/18 09/12/18 Range/Units 20:09 07:19 07:19 WBC (4.8-10.8) K/uL RBC (4.7-6.1) M/uL RDW Std Deviation (36.4-46.3) fL RDW Coeff of Alem (11.5-14.5) % Immature Gran # (Auto) (0.00-0.02) K/uL Neut # (Auto) (1.4-6.5) K/uL [place] # (Auto) (0.11-0.59) K/uL Absolute Nucleated RBC (0-0) K/uL PT (9.0-12.0) Seconds INR (0.9-1.1) APTT 31.9 H (21.0-31.0) Seconds Chloride 110 H (98-107) mmol/L Carbon Dioxide 20 L (21-32) mmol/L Anion Gap 12.0 H (3-11) BUN 50 H (7-18) mg/dl Creatinine 2.25 H D (0.6-1.4) mg/dl BUN/Creatinine Ratio 22.1 H (10-20) POC Glucose 111 H (70-99) Calcium 7.7 L (8.5-10.1) mg/dl Total Bilirubin 3.5 H (0.2-1) mg/dl AST 5208 H (15-37) U/L ALT 1323 H (12-78) U/L Alkaline Phosphatase 626 H (45-117) U/L Troponin I (0-0.045) ng/ml Albumin 2.2 L (3.4-5.0) gm/dl Globulin 4.2 H (2.5-4.0) gm/dl Albumin/Globulin Ratio 0.5 L (0.9-2) Hep Bs Antibody, Quant (>or=10mIU/mL Immune) mIU/mL 09/12/18 09/12/1819 Range/Units 07:19 07:19 10:47 WBC 17.91 H (4.8-10.8) K/uL RBC 4.67 L (4.7-6.1) M/uL RDW Std Deviation 55.5 H (36.4-46.3) fL RDW Coeff of Alem 16.9 H (11.5-14.5) % Immature Gran # (Auto) 0.13 H (0.00-0.02) K/uL Neut # (Auto) 14.09 H (1.4-6.5) K/uL [place] # (Auto) 2.12 H (0.11-0.59) K/uL Absolute Nucleated RBC 0.06 H (0-0) K/uL PT (9.0-12.0) Seconds INR (0.9-1.1) APTT (21.0-31.0) Seconds Chloride (98-107) mmol/L Carbon Dioxide (21-32) mmol/L Anion Gap (3-11) BUN (7-18) mg/dl Creatinine (0.6-1.4) mg/dl BUN/Creatinine Ratio (10-20) POC Glucose 113 H (70-99) Calcium (8.5-10.1) mg/dl Total Bilirubin (0.2-1) mg/dl AST (15-37) U/L ALT (12-78) U/L Alkaline Phosphatase (45-117) U/L Troponin I (0-0.045) ng/ml Albumin (3.4-5.0) gm/dl Globulin (2.5-4.0) gm/dl Albumin/Globulin Ratio (0.9-2) Hep Bs Antibody, Quant < 3.10 L (>or=10mIU/mL Immune) mIU/mL 09/12/18 09/12/18 Range/Units 15:00 15:00 WBC (4.8-10.8) K/uL RBC (4.7-6.1) M/uL RDW Std Deviation (36.4-46.3) fL RDW Coeff of Alem (11.5-14.5) % Immature Gran # (Auto) (0.00-0.02) K/uL Neut # (Auto) (1.4-6.5) K/uL [place] # (Auto) (0.11-0.59) K/uL Absolute Nucleated RBC (0-0) K/uL PT 16.7 H (9.0-12.0) Seconds INR 1.7 H (0.9-1.1) APTT (21.0-31.0) Seconds Chloride (98-107) mmol/L Carbon Dioxide (21-32) mmol/L Anion Gap (3-11) BUN (7-18) mg/dl Creatinine (0.6-1.4) mg/dl BUN/Creatinine Ratio (10-20) POC Glucose (70-99) Calcium (8.5-10.1) mg/dl Total Bilirubin (0.2-1) mg/dl AST (15-37) U/L ALT (12-78) U/L Alkaline Phosphatase (45-117) U/L Troponin I 0.142 H* (0-0.045) ng/ml Albumin (3.4-5.0) gm/dl Globulin (2.5-4.0) gm/dl Albumin/Globulin Ratio (0.9-2) Hep Bs Antibody, Quant (>or=10mIU/mL Immune) mIU/mL Diagnostic Findings MPRESSION: 1. Postsurgical changes of a recent laparoscopic cholecystectomy with placement of a biliary enteric stent. There is trace fluid and contrast within the cholecystectomy bed consistent with the history of recent surgery. 2. No evidence of bowel obstruction. No evidence of free air. A minimal ileus is suspected. 3. No change in the large 25 cm right-sided retroperitoneal mass. This is of predominantly fatty attenuation, with diagnostic considerations to include a lipoma, or low-grade liposarcoma. 4. Persistent pleurodiaphragmatic calcifications. Trace pleural effusions with basilar opacities likely atelectatic. 5. Catalan catheter. The Catalan catheter balloon is positioned within the prostatic urethra
--- NOTE | 2018-09-12 17:05 | Discharge Summary ---
Date of Service September 12, 2018 Admission HPI Per Admitting Provider Patient referred for upper endoscopy and endoscopic ultrasound to evaluate history of abdominal discomfort. Based on the patient's history we are concerned about common bile duct stones complicating his cholecystitis. We are planning to do upper endoscopy, endoscopic ultrasound with possible ERCP today. Discharge Data Allergies Allergy/AdvReac Type Severity Reaction Status Date / Time CATS Allergy Intermediate FACE Uncoded 09/08/18 09:16 SWELLING Consultations 09/08/18 11:12 ED Decision to Admit Stat 09/08/18 12:48 Consult Case Management - Discharge Planning Routine Consult General Surgery Routine 09/09/18 12:11 Consult Gastroenterology Routine 09/12/18 14:11 Consult Gastroenterology Routine Procedures Performed Operation Date: 09/09/18 13:45 <No data on this case meets the specified criteria> Operation Date: 09/10/18 08:25 Actual Procedures p Endoscopic Ultrasonography Upper(Not Applicable) - Nyla Copeland s Endoscopic Retrograde Cholangiopancreatography - Nyla Copeland s EGD Biopsy Cytology(Not Applicable) - Nyla Copeland Operation Date: 09/11/18 10:50 Actual Procedures p Laparoscopic Sub Total Cholecystectomy(Not Applicable) - Nina Diaz MD Ordered Studies 09/08/18 07:21 CT abd pelvis wo con Stat 09/08/18 08:53 US gallbladder Stat 09/08/18 12:48 MR MRCP Stat 09/10/18 13:00 FL ERCP biliary ductal Routine 09/10/18 15:22 US upper EUS PACS images Routine 09/12/18 13:52 CT abd pelvis wo con Stat 09/12/18 14:42 US duplex portal hepatic veins Stat 09/12/18 14:46 US venous doppler LE BI Stat Discharge Plan Discharge Items Patient Disposition: Transfer Acute Care Hospital Reason For Visit: CHOLECYSTITIS Discharge Diagnosis: retroperitoneal mass on the right side cholecystitis. S/p pre-operative ERPC with removal of stones, cbd stent, pd stent placed on 09/10/18. S/p lap dara on 09/11/18 with reported findings of cirrhosis with perihepatic ascites- this was not seen on pre-operative imaging. acute on chronic renal failure acute liver failure Condition: Critical Discharge Goals: Diagnostic testing and Learn about illness Activity: As commented below Lifting: None Non-emergency contact: Primary Care Provider Call non-emergency contact if: you have any medication questions Diet: See below Addtl Provider Instructions: retroperitoneal mass on the right side cholecystitis. S/p pre-operative ERPC with removal of stones, cbd stent, pd stent placed on 09/10/18. S/p lap dara on 09/11/18 with reported findings of cirrhosis with perihepatic ascites- this was not seen on pre-operative imaging. acute on chronic renal failure acute liver failure you have the above conditions, [facility], follow up with pcp after discharge from there Prescriptions: Discontinued glimepiride 2 mg Tablet 2 mg PO QAM RF: 0 levothyroxine 75 mcg Tablet 75 mcg PO DAILY RF: 0 simvastatin 20 mg Tablet 20 mg PO PM RF: 0 losartan 100 mg Tablet 100 mg PO DAILY RF: 0 Stand-Alone Forms: [facility] Discharge Orders: Discharge Order (Routine); Ordered 09/12/18 Ordered By: Shahid Vargas Admission Data Admit Date/Time: 09/08/18 12:42 Attending Provider: Shahid Vargas Admit Provider: Agustin Hearn Primary Care Provider: Herb Wilson III Other Providers: Agustin Hearn ; Nina Diaz ; Oscar Hearn ; Hilary Nelson ; Gissel Meadows ; Cristian Starks ; Nyla Copeland ; Lara Keys ; Malathi Osborn ; David Rosenthal ; Fili Escobar ; Kira Reyes ; Yusra Antony ; Amparo Cerda ; Yue Morrison ; Malgorzata Manzanares Service: Telemetry
--- NOTE | 2018-09-12 17:22 | Discharge Summary ---
Date of Service September 12, 2018 Principal Diagnosis no Discharge Data Allergies Allergy/AdvReac Type Severity Reaction Status Date / Time CATS Allergy Intermediate FACE Uncoded 09/08/18 09:16 SWELLING Consultations 09/08/18 11:12 ED Decision to Admit Stat 09/08/18 12:48 Consult Case Management - Discharge Planning Routine Consult General Surgery Routine 09/09/18 12:11 Consult Gastroenterology Routine 09/12/18 14:11 Consult Gastroenterology Routine Procedures Performed Operation Date: 09/09/18 13:45 <No data on this case meets the specified criteria> Operation Date: 09/10/18 08:25 Actual Procedures p Endoscopic Ultrasonography Upper(Not Applicable) - Nyla Copeland s Endoscopic Retrograde Cholangiopancreatography - Nyla Copeland s EGD Biopsy Cytology(Not Applicable) - Nyla Copeland Operation Date: 09/11/18 10:50 Actual Procedures p Laparoscopic Sub Total Cholecystectomy(Not Applicable) - Nina Diaz MD Ordered Studies 09/08/18 07:21 CT abd pelvis wo con Stat 09/08/18 08:53 US gallbladder Stat 09/08/18 12:48 MR MRCP Stat 09/10/18 13:00 FL ERCP biliary ductal Routine 09/10/18 15:22 US upper EUS PACS images Routine 09/12/18 13:52 CT abd pelvis wo con Stat 09/12/18 14:42 US duplex portal hepatic veins Stat 09/12/18 14:46 US venous doppler LE BI Stat Hospital Course (1) Choledocholithiasis with acute cholecystitis: diagnosed on CT as well as US, gall bladder wall thickening and cholelithiasis Cipro and Flagyl IV initially, changed to Zosyn for better coverage continue Zosyn IV for now, cover for cholangitis, there was pus in the common bile duct Bili and AST/ALT idris despite antibiotics, WBC up on 09/09 GI consulted, ERCP 09/10 with choledocholithiasis, balloon extraction and stents placed follow up with Dr. Copeland in several weeks for stent removal laparoscopic subtotal cholecystectomy on 09/[address] Diaz there was a great deal of inflammation in the triangle of Chalot, could not ID the cystic duct clearly for this reason a top down disection performed and most of the gall bladder removed closed remaining portion, no bile leak, ANGELINE in place transfer to [facility] night for close monitoring, could go to surgical floor late morning or afternoon tomorrow as long as he is stable (2) BERTRAM (acute kidney injury): Cr improved to 1.6 from 1.9 likely due to severe infection, possibly ATN that is now improving has been hydrated with NS at 80cc/hr since admission continue to hold Losartan, repeat BMP in the morning change fluids to 1/2NSS + 75mEq of NaHCO3 due to mild metabolic acidosis today, bicarb 20 repeat in the morning (3) 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 Diaz no history of heavy alcohol use will check hepatic panel in the AM can follow up with Janet REYES had some mild ascites this is likely the cause of his abdominal distenstion and peripheral edema as his echo was normal (5) CONOR (obstructive sleep apnea): use BIPAP over night used to use CPAP at home, quit several years ago should have repeat sleep study as outpatient to get a new CPAP (6) Dyspnea: ongoing issue for a few weeks/months scheduled for PFT next week as outpatient, has pleural scarring on CXR, this is chronic finding He may have diaphragmatic limitations due to this large mass echo with preserved EF, no diastolic dysfunction has untreated CONOR which certainly is not helping his breathing during the day (7) Peripheral edema: pitting edema on admission, 1+ likely due to cirrhosis as his echo was normal once he is more fully recovered from surgery and BERTRAM, could consider starting Lasix and Aldactone (8) HTN (hypertension): holding Losartan due to BERTRAM used Norvasc today and can give Hydralazine PRN resume Losartan once BERTRAM resolved (9) Diabetes: holding Glimepiride diabetic diet once he can eat Novolog SS (10) Pleural scarring: chronic issues, seen again today on CXR 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 has a follow up with pulmonology (11) Pulmonary nodules: again, chronic finding, have appeared stable on imaging (12) DVT prophylaxis: Heparin SC Plan: keep on tele over night, repeat labs in the AM advance diet per surgery new diagnosis of cirrhosis, should follow up with GI, check hepatic panel tomorrow AM PT/OT consulted may need rehab, was from home Today patient's general condition getting worse, which shows more distended abdomen, no bowel sounds, mild confused, not passing gas, Abdominal CT was done which shows 25 cm residual peritoneal mass, Surgeon talk to me, and indicated that the mass could cause portal vein compression will resolve in portal vein thrombosis Patient has acute on chronic renal failure, and has obvious elevated AST up to 5000 ALT up to 1000, which also caused by the mass compression per surgeon Surgeon strongly recommend to transfer to [facility] After informed consent, about the risk and benefit of transferring, I called to [facility], there is no bed, I called to [facility] talk to oncology surgeonDr. Jonyfilbruno accept pt. Chart copy has ordered, Patient will go by [facility], with IV fluid continue Has updated patient and family about the plan, Total Time Total Time Spent Total Time Spent (In Minutes): 35 Total Time Includes: Examination of the Patient, Discharge Planning, Medication Reconciliation and Communication With Other Providers Discharge Plan Discharge Items Patient Disposition: Transfer Acute Care Hospital Reason For Visit: CHOLECYSTITIS Discharge Diagnosis: retroperitoneal mass on the right side cholecystitis. S/p pre-operative ERPC with removal of stones, cbd stent, pd stent placed on 09/10/18. S/p lap dara on 09/11/18 with reported findings of cirrhosis with perihepatic ascites- this was not seen on pre-operative imaging. acute on chronic renal failure acute liver failure Condition: Critical Discharge Goals: Diagnostic testing and Learn about illness Activity: As commented below Lifting: None Non-emergency contact: Primary Care Provider Call non-emergency contact if: you have any medication questions Diet: See below Addtl Provider Instructions: retroperitoneal mass on the right side cholecystitis. S/p pre-operative ERPC with removal of stones, cbd stent, pd stent placed on 09/10/18. S/p lap dara on 09/11/18 with reported findings of cirrhosis with perihepatic ascites- this was not seen on pre-operative imaging. acute on chronic renal failure acute liver failure you have the above conditions, I am transfering you to [facility], follow up with pcp after discharge from there Prescriptions: Discontinued glimepiride 2 mg Tablet 2 mg PO QAM RF: 0 levothyroxine 75 mcg Tablet 75 mcg PO DAILY RF: 0 simvastatin 20 mg Tablet 20 mg PO PM RF: 0 losartan 100 mg Tablet 100 mg PO DAILY RF: 0 Stand-Alone Forms: [facility] Discharge Orders: Discharge Order (Routine); Ordered 09/12/18 Ordered By: Shahid Vargas Admission Data Admit Date/Time: 09/08/18 12:42 Attending Provider: Shahid Vargas Admit Provider: Agustin Hearn Primary Care Provider: Herb Wilson III Other Providers: Agustin Hearn ; Nina Diaz ; Oscar Hearn ; Hilary Nelson ; Gissel Meadows ; Cristian Starks ; Nyla Copeland ; Lara Keys ; Malathi Osborn ; David Rosenthal ; Fili Escobar. ; Kira Reyes ; Yusra Antony ; Amparo Cerda ; Yue Morrison ; Malgorzata Manzanares Service: Telemetry
[2018-09-12 19:38] VITALS: BP 105/58; TEMP 98.2; O2SAT 91
[2018-09-12 21:26] VITALS: PULSE 80
== END 2018-09-12 20:15 | disposition short-term general hospital (02) | DRG 417 ==
LOC: ED 07:07 → 3N 12:42 → SUATTDRO 12:42 → 3N 12:50 → 2S 09-11 13:17